=== PATIENT | male | born 1960 | race Caucasian/White ===

== ENCOUNTER 2023-07-10 12:34 | Inpatient (IN) | payer MEDICAID, SELFPAY ==
[2023-07-10] VITALS (16 sets, daily range): BP systolic 140–170; BP diastolic 87–117; PULSE 88–118; RESP 16–32; TEMP 36.8–37.2; O2SAT 95–99; BMI 23.3; BMI 24.1
--- NOTE | 2023-07-10 14:41 | ED_ITS ---
HPI - General Adult General Date Seen: 07/10/23 Chief complaint: Alcohol/Intoxication Stated complaint: ETOH, potential diabetic comlications Time Seen by Provider: 07/10/23 14:35 History of Present Illness HPI narrative: 69-year-old male who is presenting to the ER today with his brother with concern for alcohol related problems. He is apparently a alcoholic. Reported that he had been drinking about a bottle of wine every day prior to that. He got a DUI about 2 weeks ago and blood alcohol level was 0.315, per the patient. quit drinking about 2 weeks ago. Since then he has been having at anorexia, feeling very dizzy. He has diabetes and takes metformin. Patient says that he used to drink alcohol every day. He says that he drinks mostly ?wine?. But then also endorses sometimes he drinks other things mixed with. His brother, chris, indicates that he used to drink a full bottle of hard liquor every day. His brother endorses that he had to be admitted for 5 days for severe alcohol withdrawal in the ICU at [facility] a couple of years ago. The patient's family are trying to get a alcohol treatment program going for him, but the patient has been resistant. The patient was pulled over and had a driving under the influence take it a c ouple weeks ago. He is no longer supposed to drive. Apparently his alcohol was 0.315 or 0.375 on the night he was pulled over. Patient says he has not had anything to drink for 2 weeks. His brother thinks he may be lying about that. His brother found an empty case of wine in the trunk of the patient's car. For his part, the patient adamantly denies drinking. He also seems a little bit duplicitous about his drinking and often deflects questions. He also has history of diabetes. He is supposed to be be on metformin. It is unclear if he has been taking it. When asked him how his blood sugar has been running lately, he initially says that it is running ?pretty good. ?. His brother then adds that he told his family earlier that he had not been checking his blood sugar lately. He has a history of anxiety and/or depression. He is to be on meds, possibly something that started with ?an L? and possibly Zoloft. It sounds like he is not taking those for many months or possibly a couple of years. He has been having trouble with sleeping lately and waking up with insomnia and or nocturia. He also has a lot of phlegm and a chronic cough ongoing for a few months. He says he is not having any fever, shortness of breath, chest pain. No sore throat.. Related Data Home Medications Medication Instructions Recorded Confirmed bp med 07/10/23 metformin 07/10/23 Allergies Allergy/AdvReac Type Severity Reaction Status Date / Time Penicillins Allergy Unknown Verified 07/10/23 13:06 [facility] Social History Smoking Status: Never smoker Do you use any of these nicotine containing products: None Second hand tobacco smoke exposure: No How often do you have a drink containing alcohol: 4 or more times a week How often do you have six or more drinks on one occasion: Daily or almost daily AUDIT-C Alcohol total score: 8 Non-prescribed substance use: denies use service: No Exam Narrative: Exam Narrative: Constitutional: Appears well-developed and well-nourished. Alert. At times he is very polite and at times he is very defiant. He starts to argue with his brother and tries to kick his brother out of the room. He is tachycardic, tremulous.. HENT: Head: Atraumatic. Nose: Nose normal. Mouth/Throat: Oral mucosa is clear but dry, not desiccated or cracked no trismus. Pharynx normal Eyes: Conjunctivae normal. EOM normal. Pupils equal, round, and reactive to light. No scleral icterus. Neck: Normal range of motion. Neck supple. No tracheal deviation present. Cardiovascular: Tachycardic, regular rhythm. No gallop. No friction rub. No murmur heard. Symmetric radial artery pulses Pulmonary/Chest: Endorses that he has a lot of drainage of phlegm, but is not coughing. Oxygen 100% on room air. Effort normal. No stridor. No respiratory distress. No wheezes. No rales. No rhonchi . No tenderness. Abdominal: Soft. Bowel sounds normal. No distension. No mass. No tenderness. No rebound. No guarding. Musculoskeletal: RUE: Normal range of motion. No tenderness. No deformity LUE: Normal range of motion. No tenderness. No deformity RLE: Normal range of motion. No edema. No tenderness. No deformity LLE: Normal range of motion. No edema. No tenderness. No deformity Neurological: Alert and oriented to person, place, and day of the week, but not day of the month.. Normal strength. CN II-VII intact. No sensory deficit. GCS eye subscore is 4. GCS verbal subscore is 5. GCS motor subscore is 6. Normal coordination resting tremor. Skin: Skin is warm and dry. No rash noted. No pallor. Normal capillary refill. Psychiatric: Somewhat limited. He is very guarded and off and to flex direct questions. He says he has not had any alcohol to drink in the past 14 days ever since he got his DUI. His brother is concerned that he probably has been drinking in secret. Family is also worried that he has not been eating much. He says he drinks plenty of water. He also endorses insomnia. Family wants him to get into alcohol treatment but he is resistant and does not want treatment. Const: Vital Signs, click to edit/add: Vital Signs - 24 hr 07/10/23 12:56 Temperature 98.3 F Pulse Rate [Pulse Oximeter] 118 H Respiratory Rate 20 Blood Pressure [Ri ght Upper Arm] 162/89 H Pulse Oximetry 98 Oxygen Delivery Me thod Room Air Course Course ED Course: Recheck-sitting up in his chair, more conversant just coming back from x-ray. Reevaluation(s) Reevaluation #1: Recheck-patient's brother and mother now his bedside. He is still defiant and does not want alcohol treatment. They are trying to reason with him. Was tachycardic but heart rate down to 105 at and is continually can completion of his 2 L. Has received two 1 mg doses of Ativan. Heart rate came up from about 105-115 during my conversation with the patient and his family. He agrees to stay in the hospital for treatment. Will order phenobarbital for ongoing withdrawal symptoms. Reevaluation #2: Discussed with hospitalist, Dr. Mckeon Vital Signs Vital signs: Initial Vital Signs Temperature 98.3 F 07/10/23 12:56 Temperature Source Temporal Artery Scan 07/10/23 12:56 Pulse Rate 118 H 07/10/23 12:56 Respiratory Rate 20 07/10/23 12:56 Blood Pressure 162/89 H 07/10/23 12:56 Blood Pressure Mean 113 H 07/10/23 12:56 Blood Pressure Position Sitting 07/10/23 12:56 Pulse Oximetry 98 07/10/23 12:56 Oxygen Delivery Method Room Air 07/10/23 12:56 Vital Signs Temperature 98.3 F 07/10/23 12:56 Pulse Rate 118 H 07/10/23 12:56 Respiratory Rate 20 07/10/23 12:56 Blood Pressure 162/89 H 07/10/23 12:56 Pulse Oximetry 98 07/10/23 12:56 Oxygen Delivery Method Room Air 07/10/23 12:56 Temperature 98.3 F 07/10/23 12:56 Pulse Rate 118 H 07/10/23 12:56 Respiratory Rate 20 07/10/23 12:56 Blood Pressure 162/89 H 07/10/23 12:56 Pulse Oximetry 98 07/10/23 12:56 Oxygen Delivery Method Room Air 07/10/23 12:56 Medications Administered Medications: Generic Name Dose Route Start Last Admin Trade Name Freq PRN Reason Stop Dose Admin Sodium Chloride 1,000 mls @ 1,000 mls/hr 07/10/23 17:45 07/10/23 17:47 0.9 % Sodium Chloride 1000 Ml IV 07/10/23 18:44 1,000 mls/hr .Q1H BLANCA Administration Lorazepam 1 mg 07/10/23 16:06 07/10/23 17:46 Lorazepam 2 Mg/Ml Inj IVP 1 mg Q1H PRN Administration Discontinued Medications Generic Name Dose Route Start Last Admin Trade Name Freq PRN Reason Stop Dose Admin Folic Acid 1 mg 07/10/23 17:30 07/10/23 17:46 Folic Acid 1 Mg Tablet PO 07/10/23 17:31 1 mg ONCE ONE Administration Sodium Chloride 1,000 mls @ 1,000 mls/hr 07/10/23 14:45 07/10/23 16:27 0.9 % Sodium Chloride 1000 Ml IV 07/10/23 15:44 Infused .Q1H BLANCA Infusion Thiamine HCl 100 mg 07/10/23 17:13 07/10/23 17:46 Thiamine 100 Mg Tablet PO 07/10/23 17:14 100 mg ONCE ONE Administration Medical Decision Making MDM Narrative Medical decision making narrative: 63-year-old gentleman with a complex presentation to the ER. 1. Alcohol abuse. Patient does have her history of alcoholism and alcohol abuse. It sounds like he was for certain drinking very heavily up until about 2 weeks ago. The patient says he has not had any alcohol in the past 14 days, however his family contradicts that and they are pretty sure he has been drinking up until Monday night, 2 days ago. He was not tremulous yesterday but today he is definitely tremulous and showing signs of withdrawal. Family know that he has been through withdrawal multiple times in the past and has had seizures and required ICU admission before. Received thiamine and folate here in the ER. He is a very difficult historian. It is unclear if he may have warning he has encephalopathy and is confabulating verses just simply lying to cover up his ongoing drinking. Alcohol level is undetectable this time. He is tachycardic, tremulous, hyperthermic. He is not displaying signs of hallucinations or disorientation. Clinically consistent with alcohol withdrawal. Treated with IV benzodiazepines. LFTs are mildly abnormal with a bilirubin of 2.6, AST 287, ALT 100. This could be a pattern related to alcoholic hepatitis. Fortunately lipase is normal. He is playing signs of alcohol withdrawal including tremulousness, tachycardia, mild agitation. Sensorium normal. Initially treated with IV benzos. Also IV phenobarbital headache here in the ER. Will be admitted to the ICU for monitoring. 2. Patient endorses a lot of phlegm and a chronic cough. denies chest pain or shortness of breath. Chest x-ray is negative for any focal infiltrate, by my read. Unfortunately there is a is unexpected out ridge of Radiology. There is no Radiology over-read for any of our imaging today. Formal radiology results may come back tomorrow. 3. Kidney function is normal. Sodium mildly low at 134 but potassium normal. Creatinine normal. 4. Troponin is abnormal at 0.05. 2 hour delta troponin is unchanged at 0.05. EKG without ischemia. Patient denies any chest pain QTC is normal in the patient's EKG. Suspect likely related to sinus tachycardia from alcohol withdrawal and band ischemia. No evidence for ACS. Lab Data Labs: Lab Results 07/10/23 07/10/23 07/10/23 Range/Units 15:23 17:37 17:40 WBC 5.35 (4.50-11.00) K/uL RBC 3.32 L (4.30-5.90) m/uL Hgb 11.7 L (13.5-17.5) gm/dL Hct 34.2 L (37.0-53.0) % MCV 103 H (80-100) fL MCH 35 H (26-34) pg MCHC 34 (32-36) gm/dL RDW Coeff of Justin 13.8 (11.5-15.5) % Plt Count 163 (140-440) K/uL Neut % (Auto) 65.2 (42.0-72.0) % Lymph % (Auto) 24.3 (20-44) % [place] % (Auto) 9.5 (0.0-11.0) % Eos % (Auto) 0.2 (0.0-7.0) % Baso % (Auto) 0.6 (0.0-3.0) % Neut # (Auto) 3.49 (1.7-7.0) K/uL Lymph # (Auto) 1.30 (0.90-2.90) K/uL [place] # (Auto) 0.50 (0.00-0.90) K/UL Eos # (Auto) 0.01 (0.00-0.50) K/uL Baso # (Auto) 0.03 (0.00-0.30) K/uL Abs Immat Gran (auto) 0.01 (0.00-0.30) K/uL Imm/Tot Granulo (auto) 0.2 % Sodium 134 L (135-149) mmol/L Potassium 4.2 (3.6-5.1) mmol/L Chloride 98 (96-114) mmol/L Carbon Dioxide 21 (20-32) mmol/L Anion Gap 15 (7-15) mEq/L BUN 9 (7-30) mg/dL Creatinine 0.8 (0.5-1.5) mg/dL Estimated Creat Clear 77.57 Estimated GFR 101 ml/min Glucose 129 H (60-115) mg/dL Calcium 9.7 (8.4-10.6) mg/dL Total Bilirubin 2.6 H (0.1-1.5) mg/dL AST 287 H (12-35) U/L ALT 100 H (4-50) U/L Alkaline Phosphatase 131 (40-150) U/L Troponin I 0.05 H 0.05 H (0.01-0.04) ng/mL Total Protein 8.7 H (6.0-8.3) g/dL Albumin 5.1 H (3.3-5.0) g/dL Lipase < 10 L (23-300) U/L Ethyl Alcohol < 0.01 L (0.01-0.03) % SARS-CoV-2 (PCR) Negative SARS-CoV-2 (Negative) Influenza Type A (PCR) Negative PCR FLU A (Negative) Influenza Type B (PCR) Negative PCR FLU B (Negative) RSV (PCR) Negative PCR RSV (Negative) ECG Data Attestation: I personally reviewed and interpreted this ECG as follows: Interpretation: Sinus tachycardia. Rate 116. UT 208. First degree AV block. QRS axis normal axis. No pathologic Q-waves. ST segment/T wave: No ST segment elevation or depression. QTc: 428 Discharge Plan Discharge Clinical Impression: Alcohol abuse, Abnormal LFTs, Alcohol withdrawal Patient Disposition: Admitted As Inpatient
[2023-07-10] MEDS: 0.9 % SODIUM CHLORIDE 1000 ml 1,000 ML IV ×2 (15:35→17:47)
--- NOTE | 2023-07-10 15:37 | PC.NURSE ---
Pt comes into ED accompanied by his brother. Pt states he has had nasal drainage and cough for the last 2-3 months. denies fever or chills. Brother states he brought pt in because he is concerned about his alcohol consumption. Pt has history of being in multiple inpatient treatment facilities for alcoholism including [facility], [facility] and out of state care in [place]. Pt. denies any alcohol consumption for two weeks. Brother states he found alcohol bottles in basement of pt's house and in trunk of pt's vehicle. Pt is currently living in the basement of his mother's house as it was a condition of his recent DUI with blood ETOH approx. 0.4. Pt. states he is unable to leave and has not left the house to obtain alcohol since he has been on house arrest for the last two weeks. Pt has tremors, heart rate 120s, BP hypertensive, short term memory difficulty, pt does admit to history of seizures and pancreatitis. 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
[2023-07-10] MEDS: LORazepam 2 MG/ML inj 1 MG IVP ×4 (16:21→21:18)
[2023-07-10 16:22] LABS: Basophils Absolute Auto 0.03 K/uL (0.00-0.30); Basophils Percent Auto 0.6 % (0.0-3.0); Eosinophils Absolute Auto 0.01 K/uL (0.00-0.50); Eosinophils Percent Auto 0.2 % (0.0-7.0); Hematocrit 34.2 % (37.0-53.0); Hemoglobin* 11.7 gm/dL (13.5-17.5); Immature Granulocytes Abs Auto 0.01 K/uL (0.00-0.30); Immature Granulocytes Pct Auto 0.2 %; Lymphocytes Percent Auto 24.3 % (20-44); Mean Corpuscular HGB Conc 34 gm/dL (32-36); Mean Corpuscular Hemoglobin 35 pg (26-34); Mean Corpuscular Volume 103 fL (80-100); Monocytes Percent Auto 9.5 % (0.0-11.0); Neutrophils Absolute Auto 3.49 K/uL (1.7-7.0); Neutrophils Percent Auto 65.2 % (42.0-72.0); Platelet Count* 163 K/uL (140-440); RDW Coefficient of Variation % 13.8 % (11.5-15.5); Red Blood Count 3.32 m/uL (4.30-5.90); White Blood Count* 5.35 K/uL (4.50-11.00)
[2023-07-10 16:27] LABS: Chloride* 98 mmol/L (96-114); Slide Review Reflex No
[2023-07-10 16:28] LABS: Sodium* 134 mmol/L (135-149)
[2023-07-10 16:42] LABS: Troponin I* 0.05 ng/mL (0.01-0.04)
[2023-07-10 17:05] LABS: Albumin* 5.1 g/dL (3.3-5.0)
[2023-07-10 17:08] LABS: Anion Gap 15 mEq/L (7-15); Aspartate Amino Transferase* 287 U/L (12-35); Bilirubin Total* 2.6 mg/dL (0.1-1.5); Blood Urea Nitrogen* 9 mg/dL (7-30); Carbon Dioxide* 21 mmol/L (20-32); Creatinine* 0.8 mg/dL (0.5-1.5); Est. Creatinine Clearance* 77.57; Estimated Glomerular Filt Rate 101 ml/min; Total Protein* 8.7 g/dL (6.0-8.3)
[2023-07-10 17:09] LABS: Alanine Aminotransferase* 100 U/L (4-50); Alkaline Phosphatase* 131 U/L (40-150); Calcium* 9.7 mg/dL (8.4-10.6); Glucose* 129 mg/dL (60-115)
[2023-07-10 17:12] LABS: Ethanol* < 0.01 % (0.01-0.03); Lipase* < 10 U/L (23-300); Potassium* 4.2 mmol/L (3.6-5.1)
--- NOTE | 2023-07-10 17:34 | XR_ITS ---
INDICATION: COUGH. TECHNIQUE: TWO VIEWS CHEST. COMPARISON: NONE. FINDINGS: THERE IS NO DENSE INFILTRATE. NO PULMONARY EDEMA OR PLEURAL EFFUSION. NO FRACTURE. CARDIAC SILHOUETTE IS UNREMARKABLE WITH THE EXCEPTION OF MILD VASCULAR TORTUOSITY. ARTIFACT OVERLIES THE RIGHT UPPER HEMITHORAX. IMPRESSION: NO ACUTE FINDINGS.
[2023-07-10] MEDS: THIAMINE 100 MG TABLET PO (17:46)
[2023-07-10] MEDS: FOLIC ACID 1 MG TABLET PO (17:46)
--- NOTE | 2023-07-10 17:54 | ED.NURSE ---
Redrawn the trop and sent to lab. given another 1 mg ivp ativan. mother is present and placed another liter of fluids 0.9% normal saline infusing for hr 114. patient is tremors, very talkative, shaky, unsteady balance.
[2023-07-10 18:08] LABS: Troponin I* 0.05 ng/mL (0.01-0.04)
[2023-07-10 18:32] LABS: PCR FLU A Negative PCR FLU A (Negative); PCR FLU B Negative PCR FLU B (Negative); PCR RSV Negative PCR RSV (Negative); SARS PCR* Negative SARS-CoV-2 (Negative)
[2023-07-10] MEDS: PHENobarbitaL 260 MG in 0.9 % SODIUM CHLORIDE 100 ml 100 ML 208 MG IVPB (19:17)
--- NOTE | 2023-07-10 19:55 | PM.IMHP1 ---
Hospitalist- H&P: HPI History of Present Illness Date Seen: 07/10/23 Chief complaint: ETOH, potential diabetic complications Narrative: Woodrow Holder is a 63 year old male who presented to the ED today at the behest of his brother for anorexia and feeling off balance. Patient has a long history of alcohol abuse, recently arrested for DUI and currently on house arrest. History of hospitalization for withdrawal with + seizure. He states no alcohol use for the past 2 weeks; however, family is unsure if this is true, as they did find empty bottles of wine in his car trunk. ER Course and findings: - negative ETOH - elevated LFTs, macrocytic anemia, mild hyponatremia - troponin elevated at 0.05, sinus tachycardia on EKG Upon arrival to the floor, patient notes that he feels shaky, also ready to have supper. No pain concerns. No chest pain or breathing concerns. Histories updated below, PCP is Preethi darden. Patient has not been seen in clinic since December 2022, not currently taking any medications regularly. Review of Systems Narrative: - denies chest pain or dyspnea - denies headache or syncope - no abdominal pain - notes persistent brain fog post COVID infection [facility] Medical History (Updated 07/10/23 @ 20:54 by Yue Mckeon MD) Depression ?F32.A - Depression, unspecified (ICD-10) Diabetes type 2, controlled ?E11.9 - Type 2 diabetes mellitus without complications (ICD-10) Surgical History (Updated 07/10/23 @ 19:58 by Yue Mckeon MD) Hx of nasal septoplasty ?Z98.890 - Other specified postprocedural states (ICD-10) S/P ACL repair ?Z98.890 - Other specified postprocedural states (ICD-10) H/O hernia repair ?Z98.890 - Other specified postprocedural states (ICD-10) ?Z87.19 - Personal history of other diseases of the digestive system (ICD-10) H/O stapedectomy ?Z90.09 - Acquired absence of other part of head and neck (ICD-10) Social History (Updated 07/10/23 @ 20:28 by Yue Mckeon MD) Narrative: Currently living with mother in [place]. Brother Des MICHAEL in [place], [place]) would be medical decision maker if needed. History of alcohol abuse. Requests Full Code status. What is your current living situation?: I presently have a place to live Problems where you live: no known problems Problems where you live details: NA In the past 12 months, utilities in danger of being shut off: no In past 12 months, lack of transportation kept you from medical appts, meetings, work, or getting things needed for daily living: no In the past 12 mos, have been you worried that your food would run out before you had money to buy more?: never true In the past 12 mos, the food you bought just didn't last and you didn't have money to buy more?: never true Highest level of school completed/degree received: Bachelor's degree Smoking Status: Never smoker Do you use any of these nicotine containing products: None Second hand tobacco smoke exposure: No How often do you have a drink containing alcohol: 4 or more times a week Alcohol type: beer, wine and hard liquor How many standard drinks containing alcohol do you have on a typical day: 7 to 9 How often do you have six or more drinks on one occasion: Daily or almost daily AUDIT-C Alcohol total score: 11 Non-prescribed substance use: denies use Caffeine: No How often does anyone, including family, friends and others, physically hurt you: never How often does anyone, including family, friends and others, insult or talk down to you: never How often does anyone, including family, friends and others, threaten you with harm: never How often does anyone, including family, friends and others, scream or curse at you: never service: No Meds Home Medications and Allergies Home Medications Medication Instructions Recorded Confirmed Type bp med 07/10/23 History metformin 07/10/23 History Allergies Allergy/AdvReac Type Severity Reaction Status Date / Time Penicillins Allergy Unknown Verified 07/10/23 13:06 Exam Narrative: Exam Narrative: GEN: Awake, moderate confusion regarding chain of events that led to ER visit HEENT: EOMIs bilaterally, no scleral icterus CV: Sinus tachycardia, mid systolic murmur heard best at left lower sternal border R: LCTA bilaterally without concerning wheezing, air movement adequate Ab: Protuberant, mild fluid wave, + hepatomegaly Ext: wwp, no concerning edema Skin: Pinpoint, flat erythematous rash on left upper chest and right lower abdomen; no caput medusa Neuro: Fine tremor of bilateral upper extremities, gait is unsteady Psych: Intermittent pressured speech alternating with periods of slow responses Const: Vital Signs, click to edit/add: Vital Signs - 24 hr 07/10/23 12:56 07/10/23 17:00 07/10/23 17:30 Temperature 98.3 F Pulse Rate [Pulse Oximeter] 118 H 100 116 H Respiratory Rate 20 16 32 H Blood Pressure [Ri ght Upper Arm] 162/89 H 162/95 H 147/117 H Pulse Oximetry 98 96 96 Oxygen Delivery Me thod Room Air Room Air Room Air 07/10/23 17:45 07/10/23 18:00 07/10/23 18:30 Temperature Pulse Rate [Pulse Oximeter] 116 H 115 H 118 H Respiratory Rate 21 19 20 Blood Pressure [Ri ght Upper Arm] 160/93 H 141/102 H 170/103 H Pulse Oximetry 95 95 99 Oxygen Delivery Me thod Room Air Room Air Room Air Hospitalist - H&P: Result Labs Labs: Short CBC 07/10/23 Range/Units 15:23 WBC 5.35 (4.50-11.00) K/uL Hgb 11.7 L (13.5-17.5) gm/dL Hct 34.2 L (37.0-53.0) % Plt Count 163 (140-440) K/uL BMP 07/10/23 15:23 Sodium 134 L Potassium 4.2 Chloride 98 Carbon Dioxide 21 BUN 9 Creatinine 0.8 Glucose 129 H Calcium 9.7 Cardiac Enzymes 07/10/23 07/10/23 Range/Units 15:23 17:37 Troponin I 0.05 H 0.05 H (0.01-0.04) ng/mL Liver Function 07/10/23 Range/Units 15:23 Total Bilirubin 2.6 H (0.1-1.5) mg/dL AST 287 H (12-35) U/L ALT 100 H (4-50) U/L Alkaline Phosphatase 131 (40-150) U/L Albumin 5.1 H (3.3-5.0) g/dL Assessment and Plan Assessment and plan (1) Alcohol withdrawal: Problem comment: - symptoms noted on ED arrival 07/10, last ETOH unclear - history of withdrawal seizures - Phenobarbital, Gabapentin, prn Ativan per CIWA protocol Status: Acute (2) Alcohol abuse: Problem comment: - sequela: macrocytic anemia, hyponatremia, elevated LFTs, neuropathy Status: Acute (3) Elevated troponin: Problem comment: - likely 2/2 demand ischemia from tachycardia, also high risk for ETOH cardiomyopathy - repeat am troponin, TTE ordered Status: Acute (4) Diabetes type 2, controlled: Problem comment: - previously insulin dependent, last A1C 5.9 01/18 - accuchecks with SSI if eating during stay Status: Acute Plan - per above - follow LFTs, add INR - SCDs and PPI for ppx - SW, PT, OT consults placed - patient requested that I not call or update any family members regarding his admission
[2023-07-10] MEDS: 0.9 % SODIUM CHLORIDE 1000 ml 1,000 ML 125 ML IV (21:07)
[2023-07-10] MEDS: GABAPENTIN 300 MG CAPSULE PO (21:19)
[2023-07-10] MEDS: SODIUM CHLORIDE 0.9 % (FLUSH) 10 ML SYRINGE 5 ML IVF (21:19)
--- NOTE | 2023-07-10 21:35 | PC.NURSE ---
Pt is very Confused. Keeps trying to get out of bed to leave to go buy food. Thinks he is at home. Following RN out of room.
--- NOTE | 2023-07-10 21:38 | PC.NURSE ---
BG was [address] notified no action taken. Dr recommnded Not awakening pt once asleep. Frequent VS and IO not necessary.
[2023-07-10] MEDS: THIAMINE 250 MG in 0.9 % SODIUM CHLORIDE 100 ml 100 ML 102.5 MG IVPB (23:50)
[2023-07-11] VITALS (16 sets, daily range): BP systolic 117–146; BP diastolic 68–94; PULSE 73–96; RESP 16; TEMP 36.8–37.7; O2SAT 96–99
--- NOTE | 2023-07-11 02:37 | PC.NURSE ---
Pt CIWA @ 0230 was much improved At 1. Slight tremors visible with arms extended. Pt oriented to place time and date at this time. Much less anxious and agitated when awake.
[2023-07-11] MEDS: 0.9 % SODIUM CHLORIDE 1000 ml 1,000 ML 125 ML IV ×3 (04:43→23:40)
--- NOTE | 2023-07-11 05:06 | PC.NURSE ---
Pt awoke Prior to 0500 this am. He is alert and oriented to person, place, and situation. A1 with walker to BR. CIWA Score 1, Slight Tremors felt/observed. Note: Tremors improved overnight. VS unremarkable. Pt no longer Tachy. Pt showing less anxiousness and not as spontaneous getting out of bed. Pleasant and cooperative this am.
[2023-07-11] MEDS: GABAPENTIN 300 MG CAPSULE PO ×3 (05:34→21:54)
[2023-07-11] MEDS: OMEPRAZOLE 20 MG CAPSULE DR 40 MG PO (06:42)
[2023-07-11 07:01] LABS: Basophils Percent Auto 0.5 % (0.0-3.0); Eosinophils Percent Auto 2.1 % (0.0-7.0); Hematocrit 26.9 % (37.0-53.0); Hemoglobin* 9.3 gm/dL (13.5-17.5); Immature Granulocytes Pct Auto 0.3 %; Lymphocytes Percent Auto 43.3 % (20-44); Mean Corpuscular HGB Conc 35 gm/dL (32-36); Mean Corpuscular Hemoglobin 36 pg (26-34); Mean Corpuscular Volume 103 fL (80-100); Monocytes Percent Auto 8.7 % (0.0-11.0); Neutrophils Percent Auto 45.1 % (42.0-72.0); Platelet Count* 91 K/uL (140-440); RDW Coefficient of Variation % 13.1 % (11.5-15.5); Red Blood Count 2.61 m/uL (4.30-5.90); White Blood Count* 3.79 K/uL (4.50-11.00)
[2023-07-11 07:07] LABS: Slide Review Reflex No
[2023-07-11 07:15] LABS: Chloride* 106 mmol/L (96-114)
[2023-07-11 07:16] LABS: Albumin* 3.5 g/dL (3.3-5.0); Potassium* 3.5 mmol/L (3.6-5.1); Sodium* 135 mmol/L (135-149)
[2023-07-11 07:17] LABS: INR 1.32 (0.91-1.10); Prothrombin Time 17.3 Seconds
[2023-07-11 07:18] LABS: Creatinine* 0.8 mg/dL (0.5-1.5); Est. Creatinine Clearance* 77.57; Estimated Glomerular Filt Rate 101 ml/min
[2023-07-11 07:19] LABS: Alanine Aminotransferase* 70 U/L (4-50); Alkaline Phosphatase* 97 U/L (40-150); Anion Gap 7 mEq/L (7-15); Aspartate Amino Transferase* 135 U/L (12-35); Blood Urea Nitrogen* 10 mg/dL (7-30); Calcium* 8.1 mg/dL (8.4-10.6); Carbon Dioxide* 22 mmol/L (20-32); Gamma Glutamyl Transpeptidase* 507 U/L (8-55); Glucose* 120 mg/dL (60-115); Total Protein* 6.4 g/dL (6.0-8.3)
[2023-07-11 07:29] LABS: Troponin I* 0.03 ng/mL (0.01-0.04)
[2023-07-11] MEDS: SODIUM CHLORIDE 0.9 % (FLUSH) 10 ML SYRINGE 5 ML IVF (08:05)
[2023-07-11] MEDS: FOLIC ACID 1 MG TABLET PO (08:05)
[2023-07-11] MEDS: lisinopriL 10 MG TABLET PO (08:06)
[2023-07-11 08:57] LABS: Hemoglobin A1C* 5.9 % (0-5.6)
[2023-07-11] MEDS: THIAMINE 250 MG in 0.9 % SODIUM CHLORIDE 100 ml 100 ML 200 MG IVPB (09:14)
[2023-07-11] MEDS: INSULIN ASPART 100 UNIT/ML SUBCUT ×2 (11:21→20:26)
--- NOTE | 2023-07-11 11:55 | PM.IMPN1 ---
Progress Note: A&P Assessment and plan (1) Alcohol withdrawal: Problem details: Patient reports a long history of heavy alcohol use and multiple stays with chemical dependency rehabilitation. He reports that he has not had any alcohol in more than 2 weeks, but this seems unlikely based on his presentation. Was initially treated with phenobarbital and ativan - symptoms noted on ED arrival 07/10, last ETOH unclear - history of withdrawal seizures - Continue Ativan per [facility] protocol Status: Acute (2) Elevated troponin: Problem details: Likely 2/2 demand ischemia from tachycardia, also high risk for ETOH cardiomyopathy. Repeat troponin is now normal. - TTE ordered and pending Status: Acute (3) Diabetes type 2, controlled: Problem details: - previously insulin dependent, last A1C 5.9 01/18 - accuchecks with SSI Status: Acute (4) Alcohol abuse: Problem details: - sequela: macrocytic anemia, hyponatremia, elevated LFTs, neuropathy Status: Acute Subjective Date Seen: 07/11/23 Interval history: Patient is seen and examined. He is feeling better today, feels like his tremors are improved. He is quite tangential in our discussion and minimizes his concern for EtOH effects. He reports that he has been through chemical dependency programs several times and is not interested in any further treatment. He may get involved with AA as that has helped him in the past. He thinks he was admitted due to being dehydrated. I explained that he very likely was dehydrated, but also has evidence for alcoholic hepatitis and withdrawal. EXAM: General- no distress, appears older than stated age HEENT- NCAT, MMM Resp- Breathing is comfortable and unlabored CV- RRR, no m/g/r Neuro- mild resting tremor, no lateralizing deficits Skin- warm and dry Exam Const: Vital Signs, click to edit/add: Vital Signs - 24 hr 07/10/23 12:56 07/10/23 17:00 07/10/23 17:30 Temperature 98.3 F Pulse Rate Pulse Rate [Pulse Oximeter] 118 H 100 116 H Pulse Rate [Right Radial] Respiratory Rate 20 16 32 H Blood Pressure [Ri ght Arm] Blood Pressure [Ri ght Upper Arm] 162/89 H 162/95 H 147/117 H Pulse Oximetry 98 96 96 Oxygen Delivery Me thod Room Air Room Air Room Air 07/10/23 17:45 07/10/23 18:00 07/10/23 18:30 Temperature Pulse Rate Pulse Rate [Pulse Oximeter] 116 H 115 H 118 H Pulse Rate [Right Radial] Respiratory Rate 21 19 20 Blood Pressure [Ri ght Arm] Blood Pressure [Ri ght Upper Arm] 160/93 H 141/102 H 170/103 H Pulse Oximetry 95 95 99 Oxygen Delivery Me thod Room Air Room Air Room Air 07/10/23 20:18 07/10/23 20:21 07/10/23 20:22 Temperature 98.9 F 98.9 F 98.9 F Pulse Rate Pulse Rate [Pulse Oximeter] Pulse Rate [Right Radial] 105 H 105 H 105 H Respiratory Rate 18 18 18 Blood Pressure [Ri ght Arm] 153/87 H 153/87 H 153/87 H Blood Pressure [Ri ght Upper Arm] Pulse Oximetry 99 99 99 Oxygen Delivery Me thod Room Air Room Air Room Air 07/10/23 20:34 07/10/23 21:46 07/10/23 21:48 Temperature 98.6 F Pulse Rate 103 H Pulse Rate [Pulse Oximeter] Pulse Rate [Right Radial] Respiratory Rate 18 18 Blood Pressure [Ri ght Arm] 148/90 H Blood Pressure [Ri ght Upper Arm] Pulse Oximetry 99 99 Oxygen Delivery Me thod Room Air Room Air 07/10/23 22:06 07/10/23 22:30 07/10/23 22:36 Temperature 98.6 F 98.4 F Pulse Rate Pulse Rate [Pulse Oximeter] Pulse Rate [Right Radial] 103 H 88 103 H Respiratory Rate 18 16 18 Blood Pressure [Ri ght Arm] 148/90 H 140/90 H Blood Pressure [Ri ght Upper Arm] Pulse Oximetry 99 98 Oxygen Delivery Me thod Room Air Room Air 07/10/23 22:38 07/11/23 01:00 07/11/23 02:23 Temperature 98.4 F 98.4 F Pulse Rate Pulse Rate [Pulse Oximeter] Pulse Rate [Right Radial] 88 86 Respiratory Rate 16 16 Blood Pressure [Ri ght Arm] 140/90 H 141/81 H Blood Pressure [Ri ght Upper Arm] Pulse Oximetry 99 98 98 Oxygen Delivery Me thod Room Air Room Air Room Air 07/11/23 02:33 07/11/23 02:42 07/11/23 05:03 Temperature 98.4 F 98.4 F 99 F Pulse Rate Pulse Rate [Pulse Oximeter] Pulse Rate [Right Radial] 86 88 80 Respiratory Rate 16 16 16 Blood Pressure [Ri ght Arm] 141/81 H 141/81 H 131/89 Blood Pressure [Ri ght Upper Arm] Pulse Oximetry 98 98 99 Oxygen Delivery Wa thod Room Air Room Air Room Air 07/11/23 07:00 07/11/23 07:00 07/11/23 07:00 Temperature 98.8 F Pulse Rate 96 Pulse Rate [Pulse Oximeter] Pulse Rate [Right Radial] 73 Respiratory Rate 16 16 Blood Pressure [Ri ght Arm] 146/94 H Blood Pressure [Ri ght Upper Arm] Pulse Oximetry 98 98 Oxygen Delivery Wa thod Room Air Room Air 07/11/23 08:22 07/11/23 11:00 Temperature 98.8 F 99.8 F H Pulse Rate Pulse Rate [Pulse Oximeter] 86 Pulse Rate [Right Radial] 73 Respiratory Rate 16 16 Blood Pressure [Ri ght Arm] 146/94 H 124/75 Blood Pressure [Ri ght Upper Arm] Pulse Oximetry 98 98 Oxygen Delivery Wa thod Room Air Room Air Labs Labs: Laboratory Results - last 24 hr 07/10/23 07/10/23 07/10/23 15:23 17:37 17:40 WBC 5.35 RBC 3.32 L Hgb 11.7 L Hct 34.2 L MCV 103 H MCH 35 H MCHC 34 RDW Coeff of Justin 13.8 Plt Count 163 Neut % (Auto) 65.2 Lymph % (Auto) 24.3 Sunflower % (Auto) 9.5 Eos % (Auto) 0.2 Baso % (Auto) 0.6 Neut # (Auto) 3.49 Lymph # (Auto) 1.30 Sunflower # (Auto) 0.50 Eos # (Auto) 0.01 Baso # (Auto) 0.03 Abs Immat Gran (auto) 0.01 Imm/Tot Granulo (auto) 0.2 INR Sodium 134 L Potassium 4.2 Chloride 98 Carbon Dioxide 21 Anion Gap 15 BUN 9 Creatinine 0.8 Estimated Creat Clear 77.57 Estimated GFR 101 Glucose 129 H Hemoglobin A1c Calcium 9.7 Total Bilirubin 2.6 H GGT AST 287 H ALT 100 H Alkaline Phosphatase 131 Troponin I 0.05 H 0.05 H Total Protein 8.7 H Albumin 5.1 H Lipase < 10 L Ethyl Alcohol < 0.01 L SARS-CoV-2 (PCR) Negative SARS-CoV-2 Influenza Type A (PCR) Negative PCR FLU A Influenza Type B (PCR) Negative PCR FLU B RSV (PCR) Negative PCR RSV 07/11/23 06:35 WBC 3.79 L RBC 2.61 L Hgb 9.3 L Hct 26.9 L MCV 103 H MCH 36 H MCHC 35 RDW Coeff of Justin 13.1 Plt Count 91 L Neut % (Auto) 45.1 Lymph % (Auto) 43.3 Sunflower % (Auto) 8.7 Eos % (Auto) 2.1 Baso % (Auto) 0.5 Neut # (Auto) 1.70 Lymph # (Auto) 1.60 Sunflower # (Auto) 0.30 Eos # (Auto) 0.10 Baso # (Auto) 0.00 Abs Immat Gran (auto) 0.00 Imm/Tot Granulo (auto) 0.3 INR 1.32 H Sodium 135 Potassium 3.5 L Chloride 106 Carbon Dioxide 22 Anion Gap 7 BUN 10 Creatinine 0.8 Estimated Creat Clear 77.57 Estimated GFR 101 Glucose 120 H Hemoglobin A1c 5.9 H Calcium 8.1 L Total Bilirubin 2.0 H GGT 507 H AST 135 H ALT 70 H Alkaline Phosphatase 97 Troponin I 0.03 Total Protein 6.4 Albumin 3.5 Lipase Ethyl Alcohol SARS-CoV-2 (PCR) Influenza Type A (PCR) Influenza Type B (PCR) RSV (PCR)
[2023-07-11] MEDS: THIAMINE 250 MG in 0.9 % SODIUM CHLORIDE 100 ml 100 ML 102.5 MG IVPB ×2 (14:29→20:24)
--- NOTE | 2023-07-11 15:40 | PC.NURSE ---
VSS, RA. Denies pain. On tele- NSR. Last CIWA- 5. No ativan given. Forgetful. Talked about past drinking hx. Does not want to go to treatment, states he has done that before 3x and the only one he liked was [facility]. Stated that he stopped drinking for 3 years after going there. He mentioned reading a lot while he was there, and read a lot about depression. Pt is interested in starting Lexapro again, he has taken in the past. Does not have a primary care provider currently. Murmur- had echo today, results pending. Tolerating regular diet- ate 100% breakfast and lunch. 800 cc fluids in. Voided x2. Small/moderate, green/palencia stool x2. PIV in left arm w/ NS @ 125 cc/hr. Up with SBA, gait belt, & walker- unsteady gait, drifts to right. Will continue to monitor, follow POC, and keep pt and family updated. Preethi Muller RN
--- NOTE | 2023-07-11 19:50 | PC.NURSE ---
CIWAS= 5-6, no Ativan needed. Pt demonstrates a moderate tremor, denies pain, headache, or visual disturbances. Mild complaints of sound sensitivity. VS WNL and LS COA. Pt reports two large BM's, the second one being diarrhea and he had a small amount of incontinence attempting to get to the BR. Pt was able to clean himself up independently. Good appetite and denies and N/V. Tele= NSR.
[2023-07-12 04:01] VITALS: BP 132/87; PULSE 80; RESP 16; TEMP 36.9; O2SAT 96
[2023-07-12 04:02] VITALS: BP 132/87; PULSE 80; RESP 16; TEMP 36.9; O2SAT 96
[2023-07-12] MEDS: GABAPENTIN 300 MG CAPSULE PO (06:21)
[2023-07-12] MEDS: OMEPRAZOLE 20 MG CAPSULE DR 40 MG PO (06:22)
--- NOTE | 2023-07-12 06:31 | PC.NURSE ---
End of shift note [id number]: Pt noted to be alert & oriented to person, place and date though has been confused regarding correct day throughout the shift. Pt also believed he had been admitted to the hospital on 07/09/23 instead of 07/10/23. CIWAs of 6 noted throughout the shift. Pt has hx of seizures with precautions in place though has had no seizures noted or reported this shift. VSS and pt has been afebrile. Pt transfers/ambulates with SBA. He does take IV pole with him though is being observed as forgetting to use walker or call light when getting up. Pt states he does not use a walker at home though is noted to have some imbalance noted when standing. Pt educated to use call light when wanting to get up. Pt refused SCDs at HS. He is noted to have some intact blistering to left inner forearm near elbow. Photogrammetric Compilation Specialist placed dry gauze over this area to provide protection from IV tubing as IV currently in place to L AC. Pt remains on telemetry with NSR noted. Pt has been denying pain when asked throughout the shift. He remains continent of bladder using toilet.
[2023-07-12 07:21] VITALS: PULSE 82
[2023-07-12 07:30] VITALS: PULSE 103; RESP 18
[2023-07-12] MEDS: 0.9 % SODIUM CHLORIDE 1000 ml 1,000 ML 125 ML IV (07:31)
[2023-07-12 08:21] VITALS: BP 136/95; PULSE 103; RESP 18; TEMP 36.6; O2SAT 97
[2023-07-12 08:24] VITALS: BP 136/95; PULSE 103; RESP 18; TEMP 36.6; O2SAT 97
[2023-07-12] MEDS: lisinopriL 10 MG TABLET PO (09:01)
[2023-07-12] MEDS: FOLIC ACID 1 MG TABLET PO (09:01)
[2023-07-12] MEDS: THIAMINE 250 MG in 0.9 % SODIUM CHLORIDE 100 ml 100 ML 102.5 MG IVPB (09:03)
[2023-07-12 09:04] LABS: Albumin* 3.8 g/dL (3.3-5.0)
[2023-07-12 09:05] LABS: Chloride* 112 mmol/L (96-114); Potassium* 3.8 mmol/L (3.6-5.1); Sodium* 136 mmol/L (135-149)
[2023-07-12 09:07] LABS: Anion Gap 8 mEq/L (7-15); Aspartate Amino Transferase* 85 U/L (12-35); Bilirubin Total* 1.6 mg/dL (0.1-1.5); Carbon Dioxide* 16 mmol/L (20-32); Creatinine* 0.8 mg/dL (0.5-1.5); Est. Creatinine Clearance* 77.57; Estimated Glomerular Filt Rate 101 ml/min
[2023-07-12 09:08] LABS: Alanine Aminotransferase* 58 U/L (4-50); Alkaline Phosphatase* 95 U/L (40-150); Blood Urea Nitrogen* 8 mg/dL (7-30); Calcium* 8.2 mg/dL (8.4-10.6); Glucose* 169 mg/dL (60-115); Total Protein* 7.1 g/dL (6.0-8.3)
[2023-07-12 09:14] LABS: Basophils Absolute Auto 0.02 K/uL (0.00-0.30); Basophils Percent Auto 0.4 % (0.0-3.0); Eosinophils Percent Auto 2.1 % (0.0-7.0); Hematocrit 28.6 % (37.0-53.0); Hemoglobin* 9.6 gm/dL (13.5-17.5); Immature Granulocytes Abs Auto 0.02 K/uL (0.00-0.30); Immature Granulocytes Pct Auto 0.4 %; Lymphocytes Absolute Auto 1.67 K/uL (0.90-2.90); Lymphocytes Percent Auto 35.4 % (20-44); Mean Corpuscular HGB Conc 34 gm/dL (32-36); Mean Corpuscular Hemoglobin 36 pg (26-34); Mean Corpuscular Volume 106 fL (80-100); Monocytes Percent Auto 7.4 % (0.0-11.0); Neutrophils Absolute Auto 2.56 K/uL (1.7-7.0); Neutrophils Percent Auto 54.3 % (42.0-72.0); Platelet Count* 95 K/uL (140-440); White Blood Count* 4.72 K/uL (4.50-11.00)
[2023-07-12 09:19] LABS: Slide Review Reflex No
--- NOTE | 2023-07-12 10:43 | PC.SOCIAL ---
Discharge planning: wafer polishing worker met with pt and provided him with a resource list for Substance Abuse programs in [place] and the surrounding areas. wafer polishing worker also provided pt with a list of local A.A. Meetings at his request. Pt was thankful for the information and resources. Social work to follow-up as needed.
--- NOTE | 2023-07-12 10:59 | P.DS_ITS ---
DS: Providers Provider Date Seen: 07/12/23 Date of admission: 07/10/23 20:11 Primary care physician: Not a Local Provider Admitting Clinician: Yue Mckeon MD Consults: 07/10/23 14:36 Consult to [employer] Book Server [CONS] Urgent Comment: Reason for Consult:: Social Service Consult 07/10/23 20:11 Consult to Physical Therapy [CONS] Routine Comment: Reason(s) for PT Consult:: Evaluate and Treat Any Restrictions?:: No Restrictions 07/10/23 20:15 Consult to Occupational Therapy [CONS] Routine Comment: Reason(s) for OT Consult:: Evaluate and Treat Any Restrictions?:: No Restrictions Attending Physician on discharge: Stephanie Porter MD Date of Discharge: 07/12/23 DS: Diagnosis Discharge Diagnosis (1) Alcohol withdrawal: Status: Acute Problem details: Patient reports a long history of heavy alcohol use and multiple stays with chemical dependency rehabilitation. He reports that he has not had any alcohol in more than 2 weeks, but this seems unlikely based on his presentation. Was initially treated with phenobarbital and ativan. Withdrawal slowly improved and on the day of discharge, patient was felt to be stable for discharge. Strict sobriety was recommended. Patient was provided resources. (2) Elevated troponin: Status: Acute Problem details: Likely 2/2 demand ischemia from tachycardia, also high risk for ETOH cardiomyopathy. Repeat troponin is now normal. - TTE ordered and pending at the time of discharge, will need PCP to review (3) Diabetes type 2, controlled: Status: Acute Problem details: - previously insulin dependent, last A1C 5.9 01/18 - Resume metformin at discharge and follow up with PCP (4) Alcohol abuse: Status: Acute Problem details: - sequela: macrocytic anemia, hyponatremia, elevated LFTs, neuropathy (5) Alcoholic hepatitis: Status: Acute Problem details: LFTs were elevated on admission with mild impairment in synthetic function. Impr oving at the time of discharge. Abstinence from alcohol recommended. DS: Summary Hospital Course Hospital Course: Woodrow Holder is a 63 year old male who presented to the ED today at the behest of his brother for anorexia and feeling off balance. Patient has a long history of alcohol abuse, recently arrested for DUI and currently on house arrest. History of hospitalization for withdrawal with + seizure. He states no alcohol use for the past 2 weeks; however, family is unsure if this is true, as they did find empty bottles of wine in his car trunk. ER Course and findings: - negative ETOH - elevated LFTs, macrocytic anemia, mild hyponatremia - troponin elevated at 0.05, sinus tachycardia on EKG Patient was admitted to ICU for close monitoring and treatment of withdrawal with phenobarbital and ativan. He did well over 2 nights and withdrawal abated. He declined resources for inpatient treatment, but was agreeable to considering AA which he has found helpful in the past. Echo is still pending at time of discharge, recommend PCP to follow up. Status at Discharge Functional status at discharge: independent ambulation Time Spent with Patient Time attestation: Total time spent providing and/or coordinating discharge services: Time spent: Greater than 30 minutes Exam Const: Vital Signs, click to edit/add: Vital Signs - 24 hr 07/11/23 11:00 07/11/23 15:00 07/11/23 15:00 Temperature 99.8 F H 98.6 F Pulse Rate Pulse Rate [Pulse Oximeter] 86 91 Respiratory Rate 16 16 16 Blood Pressure [Ri ght Arm] 124/75 117/68 Pulse Oximetry 98 96 96 Oxygen Delivery Me thod Room Air Room Air Room Air 07/11/23 15:00 07/11/23 15:00 07/11/23 15:23 Temperature 98.6 F Pulse Rate 90 Pulse Rate [Pulse Oximeter] 91 91 Respiratory Rate 16 16 Blood Pressure [Ri ght Arm] 117/68 Pulse Oximetry 96 Oxygen Delivery Me thod Room Air 07/11/23 19:52 07/11/23 23:00 07/11/23 23:44 Temperature 98.3 F Pulse Rate Pulse Rate [Pulse Oximeter] 90 87 Respiratory Rate 16 16 16 Blood Pressure [Ri ght Arm] 118/75 Pulse Oximetry 97 99 Oxygen Delivery Me thod Room Air Room Air 07/11/23 23:45 07/11/23 23:46 07/11/23 23:55 Temperature 98.6 F 98.6 F Pulse Rate 78 Pulse Rate [Pulse Oximeter] 87 87 Respiratory Rate 16 16 Blood Pressure [Ri ght Arm] 122/80 122/80 Pulse Oximetry 99 99 Oxygen Delivery Me thod Room Air Room Air 07/12/23 04:01 07/12/23 04:02 07/12/23 07:21 Temperature 98.4 F 98.4 F Pulse Rate 82 Pulse Rate [Pulse Oximeter] 80 80 Respiratory Rate 16 16 Blood Pressure [Ri ght Arm] 132/87 132/87 Pulse Oximetry 96 96 Oxygen Delivery Me thod Room Air Room Air 07/12/23 07:30 07/12/23 08:21 07/12/23 08:24 Temperature 97.9 F Pulse Rate Pulse Rate [Pulse Oximeter] 103 H 103 H Respiratory Rate 18 18 18 Blood Pressure [Ri ght Arm] 136/95 H Pulse Oximetry 97 97 Oxygen Delivery Me thod Room Air Room Air 07/12/23 08:24 Temperature 97.9 F Pulse Rate Pulse Rate [Pulse Oximeter] 103 H Respiratory Rate 18 Blood Pressure [Ri ght Arm] 136/95 H Pulse Oximetry 97 Oxygen Delivery Me thod Room Air Documenting provider has reviewed patient's vital signs: yes Common normals: no apparent distress General appearance: cooperative and appears older than stated age HENMT: Common normals: normocephalic Head and scalp: normocephalic Teeth and gingiva: edentulous Resp: Common normals: normal respiratory effort and clear to auscultation bilaterally Auscultation: clear to auscultation bilaterally Cardio: Common normals: regular rhythm (mildly tachycardic), S1 normal heart sound and S2 normal heart sound Rhythm: regular rhythm (mildly tachycardic) Heart sounds: S1 normal, S2 normal and murmur Extremity: Common normals: normal to inspection Neuro: Common normals: moves all extremities and no focal motor deficits Skin: General skin exam: dry skin DS: Data Data Completed and Pending Labs on day of discharge: Labs from last 24 hours 07/12/23 07/12/23 09:07 08:41 WBC 4.72 RBC 2.70 L Hgb 9.6 L Hct 28.6 L MCV 106 H MCH 36 H MCHC 34 RDW Coeff of Justin 13.0 Plt Count 95 L Neut % (Auto) 54.3 Lymph % (Auto) 35.4 Owen % (Auto) 7.4 Eos % (Auto) 2.1 Baso % (Auto) 0.4 Neut # (Auto) 2.56 Lymph # (Auto) 1.67 Owen # (Auto) 0.30 Eos # (Auto) 0.10 Baso # (Auto) 0.02 Abs Immat Gran (auto) 0.02 Imm/Tot Granulo (auto) 0.4 Sodium 136 Potassium 3.8 Chloride 112 Carbon Dioxide 16 L Anion Gap 8 BUN 8 Creatinine 0.8 Estimated Creat Clear 77.57 Estimated GFR 101 Glucose 169 H Calcium 8.2 L Total Bilirubin 1.6 H AST 85 H ALT 58 H Alkaline Phosphatase 95 Total Protein 7.1 Albumin 3.8 Discharge Plan Discharge Disposition: Home, Self-Care Date of Admission: 07/10/23 20:11 Attending Provider on Discharge: Stephanie Porter Primary Care Provider: Provider,Not a Local Condition: Improved Anticipated Discharge Date/Time: 07/12/23 10:56 Discharge Medications: Continued amlodipine 5 mg tablet 5 mg PO DAILY losartan 100 mg tablet 100 mg PO DAILY gabapentin 300 mg capsule 300 - 600 mg PO BID@09,12 Rx Instructions: 300MG AM AND 600MG NOON Discharge Orders: Discharge Order (Routine); Ordered 07/12/23 Ordered By: Stephanie Porter Patient Education: Alcohol Withdrawal (DC) Activity Level: No Restrictions Discharge Diet: Diabetic Follow Up Appointments: Provider,Not a Local [Primary Care Provider] - Forms: [employer] Medical Info Instructions Discharge Comments: Follow up with PCP, Preethi Armenta PA-C with [facility] in 1 week
--- NOTE | 2023-07-12 12:47 | PC.NURSE ---
discharge. pt has been pleasant. he is alert x2. off on date. no pain/. CIWA 6, no Ativan needed. Pt demonstrates a moderate tremor, denies pain, headache, or visual disturbances. large BM per pt.he is eating, drinking and voiding. Tele= NSR. he has been up walking, IV is patent. went over discharge packet with pt. pt went over and signed personal belonging sheet. all meds x3 returned to pt. he got a w/c ride to front entrance with all belongings and paperwork
== END 2023-07-12 12:20 | disposition home or self-care (01) | DRG 897 ==
LOC: ED 19:11 → MEDSURG 19:35
PROVIDERS: Family Medicine; Admitting Provider Family Medicine; Emergency Provider Emergency Medicine; Visit Provider Family Medicine
DX: F10.239 Alcohol dependence with withdrawal, unspecified (principal); I24.89 Other forms of acute ischemic heart disease; E11.9 Type 2 diabetes mellitus without complications; F32.A Depression, unspecified; R00.0 Tachycardia, unspecified; R79.89 Other specified abnormal findings of blood chemistry; K70.10 Alcoholic hepatitis without ascites; Y90.0 Blood alcohol level of less than 20 mg/100 ml; R05.3 Chronic cough; D53.9 Nutritional anemia, unspecified; G62.1 Alcoholic polyneuropathy
CPT/HCPCS: 36415; 71046; 80053; 82077; 82962; 82977; 83036; 83690; 84484; 85025; 85610; 87631; 93005; 93306; 97116; 97161; 97165; 97535; 99285; G0378; A9270; J2060; J2560; J3411; J7030

== ENCOUNTER 2023-11-20 10:58 | Outpatient (CLI) | payer MEDICAID, SELFPAY | END 2023-11-20 10:59 | disposition home or self-care (01) | LOC: NFLDUCREF 11:01 | PROVIDERS: Visit Provider Nurse Practitioner Family | DX: R11.2 Nausea with vomiting, unspecified (principal) | CPT/HCPCS: 80053 ==

== ENCOUNTER 2024-02-07 11:47 | Inpatient (IN) | payer MEDICAID, SELFPAY ==
[2024-02-07] VITALS (13 sets, daily range): BP systolic 150–170; BP diastolic 79–96; PULSE 91–125; RESP 16–18; TEMP 37–37.2; O2SAT 98–100; BMI 20.5; BMI 21.9
[2024-02-07] MEDS: LORazepam 2 MG/ML inj IVP (12:25)
--- NOTE | 2024-02-07 12:27 | ED.GENADULT ---
HPI - General Adult General Time Seen by Provider: 12:28 Date Seen: 02/07/24 Chief complaint: Nausea/Vomiting Stated complaint: Weakness, nausea, vomiting Time Seen by Provider: 02/07/24 12:13 Source: patient, family and RN notes reviewed Mode of arrival: ambulatory Limitations: no limitations History of Present Illness HPI narrative: This 64-year-old male is accompanied by a 2 of his brothers with concern of alcohol withdrawal. Woodrow feels like he is having nausea and vomiting due to postnasal drainage from his sinuses. His brother's report that he is had alcohol withdrawal seizures before. They note he does not always have severe withdrawal but if he does go into withdrawal, can be severe. His last seizure was when he was hospitalized at [facility], maybe has been years. Woodrow endorses that he is been trying to cut back on alcohol but is still probably drinking a 5th of hard liquor daily. His last drink was last night. He has been having nausea vomiting, denies fevers, denies abdominal pain. His brother notes that he feels he has baseline cephalopathy from his alcohol use, does have Wernicke encephalopathy. Woodrow fell last night, hit the front of his head. He has no recollection. His brothers note that he did state that he was alcoholic twice earlier today, this is the 1st time he is ever admitted that he is alcoholic. They note that he is sleeping in his mom's basement, he has been staying with her. They feel that they need to remove him from that living arrangement, she cannot manage him. Related Data Home Medications ?Medication ?Instructions ?Recorded ?Confirmed losartan 100 mg tablet 100 mg PO DAILY 07/11/23 02/07/24 acetaminophen 325 mg tablet 650 mg PO Q4H PRN 02/07/24 02/07/24 amlodipine 5 mg tablet 5 mg PO DAILY 02/07/24 02/07/24 azelastine 137 mcg (0.1 %) nasal 1 spray intranasal BID 02/07/24 02/07/24 spray gabapentin 300 mg capsule 300 mg PO DAILY 02/07/24 02/07/24 gabapentin 300 mg capsule 600 mg PO HS 02/07/24 02/07/24 metformin 500 mg tablet,extended 500 mg PO BIDWM 02/07/24 02/07/24 release 24 hr omeprazole 40 mg capsule,delayed 40 mg PO DAILY 02/07/24 02/07/24 release pravastatin 10 mg tablet 10 mg PO HS 02/07/24 02/07/24 Allergies Allergy/AdvReac Type Severity Reaction Status Date / Time Penicillins Allergy Unknown Verified 11/20/23 10:32 Review of Systems Status of ROS: Reports: 6 or more systems reviewed and unremarkable except as noted in History and below [facility] Medical History (Updated 02/07/24 @ 19:27 by Jenni Raza MD) 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 ?K70.2 - Alcoholic fibrosis and sclerosis of liver (ICD-10) Noncompliance with medication regimen ?Z91.148 - Patient's other noncompliance with medication regimen for other reason (ICD-10) Medication noncompliance due to cognitive impairment ?R41.9 - Unspecified symptoms and signs involving cognitive functions and awareness (ICD-10) ?Z91.148 - Patient's other noncompliance with medication regimen for other reason (ICD-10) Malnutrition ?E46 - Unspecified protein-calorie malnutrition (ICD-10) Ascending aortic aneurysm ?I71.21 - Aneurysm of the ascending aorta, without rupture (ICD-10) History of pancreatitis ?Z87.19 - Personal history of other diseases of the digestive system (ICD-10) Hypertension ?I10 - Essential (primary) hypertension (ICD-10) Diabetes ?E11.9 - Type 2 diabetes mellitus without complications (ICD-10) Depression ?F32.A - Depression, unspecified (ICD-10) Diabetes type 2, controlled ?E11.9 - Type 2 diabetes mellitus without complications (ICD-10) Surgical History Hx of nasal septoplasty ?Z98.890 - Other specified postprocedural states (ICD-10) S/P ACL repair ?Z98.890 - Other specified postprocedural states (ICD-10) H/O hernia repair ?Z98.890 - Other specified postprocedural states (ICD-10) ?Z87.19 - Personal history of other diseases of the digestive system (ICD-10) H/O stapedectomy ?Z90.09 - Acquired absence of other part of head and neck (ICD-10) Social History Narrative: Currently living with mother in [place]. Brother Des ( in [place], [place]) would be medical decision maker if needed. History of alcohol abuse. Requests Full Code status. What is your current living situation?: I have a place to live at present, but am concerned about future Problems where you live: no known problems Problems where you live details: pt lives in basement of mothers home In the past 12 months, utilities in danger of being shut off: no In past 12 months, lack of transportation kept you from medical appts, meetings, work, or getting things needed for daily living: declined to answer In the past 12 mos, have been you worried that your food would run out before you had money to buy more?: never true In the past 12 mos, the food you bought just didn't last and you didn't have money to buy more?: never true Highest level of school completed/degree received: Bachelor's degree Smoking Status: Smoker, status unknown Do you use any of these nicotine containing products: Smokeless Tobacco Nicotine containing products detail: chew How often do you have a drink containing alcohol: 4 or more times a week Alcohol type: hard liquor Alcohol type details: pt drinks a 5th of whisky daily How many standard drinks containing alcohol do you have on a typical day: 5 or 6 How often do you have six or more drinks on one occasion: Daily or almost daily AUDIT-C Alcohol total score: 10 Non-prescribed substance use: denies use Caffeine: No How often does anyone, including family, friends and others, physically hurt you: never How often does anyone, including family, friends and others, insult or talk down to you: never How often does anyone, including family, friends and others, threaten you with harm: never How often does anyone, including family, friends and others, scream or curse at you: never service: No Exam Const: Vital Signs, click to edit/add: Vital Signs - 24 hr 02/07/24 12:06 02/07/24 12:21 02/07/24 13:30 Temperature 98.8 F Pulse Rate Pulse Rate [Pulse Oximeter] 125 H 110 H Pulse Rate [Right Brachial] Respiratory Rate 18 18 Blood Pressure [Ri ght Arm] Blood Pressure [Ri ght Upper Arm] 158/95 H 155/91 H Pulse Oximetry 98 98 98 Oxygen Delivery Me thod Room Air Room Air 02/07/24 15:12 02/07/24 15:31 02/07/24 16:00 Temperature 98.9 F 98.9 F Pulse Rate Pulse Rate [Pulse Oximeter] Pulse Rate [Right Brachial] 101 H 101 H Respiratory Rate 18 18 18 Blood Pressure [Ri ght Arm] 158/79 H 158/79 H Blood Pressure [Ri ght Upper Arm] Pulse Oximetry 100 100 100 Oxygen Delivery Me thod Room Air Room Air Room Air 02/07/24 16:12 Temperature Pulse Rate 97 Pulse Rate [Pulse Oximeter] Pulse Rate [Right Brachial] Respiratory Rate Blood Pressure [Ri ght Arm] Blood Pressure [Ri ght Upper Arm] Pulse Oximetry Oxygen Delivery Me thod Woodrow is alert, interactive, no apparent distress. With any movement of his arms or legs you do see tremulous movement. Pupils are equal round reactive, sclera clear. He has contusion on his right frontal forehead with raised area and underlying ecchymosis, no open wound. No drainage from his nares or ears. Able speak in complete sentences. Mucosa is dry. Neck is supple, no adenopathy, no masses. Has no midline tenderness of his neck, no tenderness over his back, see no traumatic government contracts manager his back. Lungs are clear, good air entry, no wheezing or crackles. CV fast but regular, no murmur, normal S1-S2. Abdomen is soft, nondistended, nontender, no masses noted. Can follow commands, is tremulous with any movement. Seems to have symmetrical strength. Did not ambulate him at this time. No hallucinations noted at this time. Documenting provider has reviewed patient's vital signs: yes Course Course ED Course: We all agree that head CT imaging will be done. Nursing staff is placing an IV, he will get an initial L of IV fluids, have ordered 1 mg IV Ativan. Did review with them that I would like to initiate phenobarbital, will start with 130 mg IV. Will get full complement of labs. Woodrow feels that is nausea and vomiting and the tremors come when he gets this postnasal drainage. Reviewed with him that we will certainly look into the postnasal drainage, the head CT can show as the sinuses. Did review with him that I do think we need to be concerned that he might be an alcohol withdrawal as he has not been drinking. Discussed with him that we really should safely treat for that complication is well, do not want him going into an alcohol withdrawal seizure. He does accept this approach, is agreeable to evaluation workup. I have talked to his brothers, does not sound like he is in a safe situation to return home given his history. Will talk to our hospitalist. Program Admin can help them as well with ultimate disposition. Reevaluation(s) Time of Reevaluation #1: 13:15 Reevaluation #1: Woodrow is alert, interactive. Reviewed with him his lactate is 7.7. Nursing staff will do an Accu-Chek just to ensure that his glucose is not significantly elevated, need to make sure that we do not need to consider hyperosmolar nonketotic syndrome. I have ordered a 2 L of normal saline, did order IV fluids with the multivitamins, thiamine, folate. Time of Reevaluation #2: 13:38 Reevaluation #2: Magnesium is low at 1.2. Will initiate IV magnesium. Head CT showing the frontal hematoma but no sinus disease, no acute intracranial pathology from trauma. Consultations Consultation #1: Did review with the hospitalist Sasha RIVERA regarding likely admission of this patient. She will need to see if there is CCU capacity and staffing to care for him. She will let me know. Will continue to proceed with our evaluation and management of him here. Time: 12:39 Consultation #2: Have updated the hospitalists, plan will be for patient to go to CCU here for alcohol withdrawal, hypomagnesemia, alcohol hepatitis. Will also give him a dose of IV Protonix in case there is underlying alcoholic induced gastritis. Time: 13:52 Vital Signs Vital signs: Initial Vital Signs Temperature 98.8 F 02/07/24 12:06 Temperature Source Temporal Artery Scan 02/07/24 12:06 Pulse Rate 125 H 02/07/24 12:06 Respiratory Rate 18 02/07/24 12:06 Blood Pressure 158/95 H 02/07/24 12:06 Blood Pressure Mean 116 H 02/07/24 12:06 Blood Pressure Position Sitting 02/07/24 12:06 Pulse Oximetry 98 02/07/24 12:06 Oxygen Delivery Method Room Air 02/07/24 12:06 Vital Signs Temperature 98.8 F 02/07/24 12:06 Pulse Rate 125 H 02/07/24 12:06 Respiratory Rate 18 02/07/24 12:06 Blood Pressure 158/95 H 02/07/24 12:06 Pulse Oximetry 98 02/07/24 12:06 Oxygen Delivery Method Room Air 02/07/24 12:06 Temperature 98.6 F 02/07/24 19:50 Pulse Rate 94 02/07/24 19:50 Respiratory Rate 16 02/07/24 19:50 Blood Pressure 152/92 H 02/07/24 19:50 Pulse Oximetry 99 02/07/24 19:50 Oxygen Delivery Method Room Air 02/07/24 19:50 Medications Administered Medications: Generic Name Dose Route Start Last Admin Trade Name Freq PRN Reason Stop Dose Admin Enoxaparin Sodium 40 mg 02/07/24 21:00 02/07/24 20:49 Enoxaparin 40 Mg/0.4 Ml Inj SUBCUT 40 mg HS BLANCA Administration Gabapentin 600 mg 02/07/24 21:00 02/07/24 20:49 Gabapentin 300 Mg Capsule PO 600 mg HS BLANCA Administration Sodium Chloride 1,000 mls @ 125 mls/hr 02/07/24 16:13 02/07/24 19:02 0.9 % Sodium Chloride 1000 Ml IV 02/08/24 04:12 125 mls/hr .Q8H BLANCA Administration Insulin Aspart 0 unit 02/07/24 18:00 02/07/24 17:02 Insulin Aspart 100 Unit/Ml SUBCUT 1 unit TIDWM BLANCA Administration Protocol Lorazepam 1 - 4 mg 02/07/24 16:13 02/07/24 17:03 Lorazepam 1 Mg Tablet PO 1 mg Q1H PRN Administration Alcohol Withdrawal Protocol Sodium Chloride 5 ml 02/07/24 21:00 02/07/24 20:49 Sodium Chloride 0.9 % (Flush) 10 Ml Syringe IVF 5 ml BID BLANCA Administration Thiamine HCl 100 mg 02/07/24 16:13 02/07/24 16:48 Thiamine 100 Mg Tablet PO 02/09/24 16:14 100 mg Q24H BLANCA Administration Discontinued Medications Generic Name Dose Route Start Last Admin Trade Name Freq PRN Reason Stop Dose Admin Sodium Chloride 1,000 mls @ 1,000 mls/hr 02/07/24 12:22 02/07/24 13:25 0.9 % Sodium Chloride 1000 Ml IV 02/07/24 13:21 Infused .Q1H BLANCA Infusion Phenobarbital 130 mg/ Sodium 102 mls @ 204 mls/hr 02/07/24 12:40 02/07/24 13:50 Chloride IVPB 02/07/24 12:41 Infused ONCE ONE Infusion Sodium Chloride 1,000 mls @ 1,000 mls/hr 02/07/24 13:06 02/07/24 18:36 0.9 % Sodium Chloride 1000 Ml IV 02/07/24 14:05 Infused .Q1H BLANCA Infusion Folic Acid 1 mg/ Multivitamins 1,011.2 mls @ 252.8 mls/hr 02/07/24 13:15 02/07/24 18:35 10 ml/ Thiamine HCl 100 mg/ IV 02/07/24 17:14 Infused Sodium Chloride .Q4H BLANCA Infusion Magnesium Sulfate 2 gm in 50 mls @ 25 mls/hr 02/07/24 13:38 02/07/24 17:00 Magnesium Iv IVPB 02/07/24 15:37 Infused ONCE ONE Infusion Lorazepam 1 - 2 mg 02/07/24 12:21 02/07/24 12:25 Lorazepam 2 Mg/Ml Inj IVP 2 mg Q1H PRN Administration Alcohol Withdrawal Pantoprazole Sodium 80 mg 02/07/24 13:53 02/07/24 14:35 Pantoprazole Sodium 40 Mg Inj IVP 02/07/24 13:54 80 mg ONCE ONE Administration Potassium Chloride 40 meq 02/07/24 16:13 02/07/24 16:47 Potassium Chloride 10 Meq Capsule Er PO 02/07/24 16:14 40 meq ONCE ONE Administration Medical Decision Making Lab Data Lab results reviewed: Yes I reviewed the patient's lab results Labs: Lab Results 02/07/24 02/07/24 Range/Units 12:43 13:51 WBC 4.37 L (4.50-11.00) K/uL RBC 3.18 L (4.30-5.90) m/uL Hgb 11.2 L (13.5-17.5) gm/dL Hct 32.3 L (37.0-53.0) % MCV 102 H (80-100) fL MCH 35 H (26-34) pg MCHC 35 (32-36) gm/dL RDW Coeff of Justin 13.4 (11.5-15.5) % Plt Count 127 L (140-440) K/uL Neut % (Auto) 73.8 H (42.0-72.0) % Lymph % (Auto) 19.7 L (20-44) % [place] % (Auto) 5.3 (0.0-11.0) % Eos % (Auto) 0.0 (0.0-7.0) % Baso % (Auto) 0.7 (0.0-3.0) % Neut # (Auto) 3.20 (1.7-7.0) K/uL Lymph # (Auto) 0.90 (0.90-2.90) K/uL [place] # (Auto) 0.20 (0.00-0.90) K/UL Eos # (Auto) 0.00 (0.00-0.50) K/uL Baso # (Auto) 0.00 (0.00-0.30) K/uL Abs Immat Gran (auto) 0.00 (0.00-0.30) K/uL Imm/Tot Granulo (auto) 0.5 % INR 1.09 (0.91-1.10) APTT 26 (23-33) Seconds Sodium 138 (135-149) mmol/L Potassium 3.5 L (3.6-5.1) mmol/L Chloride 94 L (96-114) mmol/L Carbon Dioxide 22 (20-32) mmol/L Anion Gap 22 H (7-15) mEq/L BUN 18 (7-30) mg/dL Creatinine 1.2 (0.5-1.5) mg/dL Estimated Creat Clear 56.92 Estimated GFR 68 ml/min Glucose 211 H (60-115) mg/dL Lactate 7.7 H* (0.5-1.9) mmol/L Calcium 8.6 (8.4-10.6) mg/dL Magnesium 1.2 L (1.5-2.6) mg/dL Total Bilirubin 1.5 (0.1-1.5) mg/dL Direct Bilirubin 0.6 H (0.0-0.5) mg/dL AST 226 H (12-35) U/L ALT 57 H (4-50) U/L Alkaline Phosphatase 93 (40-150) U/L Ammonia < 9.0 L (13.1-30.0) umol/L Troponin I < 0.01 L (0.01-0.04) ng/mL Total Protein 8.0 (6.0-8.3) g/dL Albumin 5.2 H (3.3-5.0) g/dL Lipase 15 L (23-300) U/L Ethyl Alcohol < 0.01 L (0.01-0.03) % Lab Acknowledgement Test Added Imaging Data CT scan - head: Attestation: I have reviewed the pertinent imaging results. Radiologist's impression: Patient: WOODROW MADRID Facility:?[facility] Patient ID:?[id number] Site Patient ID:?[id number]. Site :?[id number] Study:?CT-Head -02/07/2024 1:12:44 PM Ordering Physician:?Comfort Marrero Final Report: INDICATION: WEAKNESS, NAUSEA, VOMITING, BUMP ON FOREHEAD TECHNIQUE: CT of the head was performed without IV contrast. COMPARISON: None. FINDINGS: Parenchyma: No acute hemorrhage, infarction, or mass. Mild scattered periventricular white matter hypoattenuation is nonspecific and is favored to represent chronic small vessel ischemic disease. Ventricles and extra-axial spaces: Mild involutional changes. Visualized paranasal sinuses: Clear. Mastoid air cells: Clear. Bones: No focal abnormality. Additional comment: [id number] right frontal scalp hematoma. IMPRESSION: No acute intracranial abnormality. Please note that all CT scans at this facility use dose modulation, iterative reconstruction, and/or weight-based dosing when appropriate to reduce radiation dose to as low as reasonably achievable. Dictated by Danny Miller MD @ 02/07/2024 1:18:38 PM (Electronic Signature) ECG Data Attestation: I personally reviewed and interpreted this ECG as follows: (Sinus tachycardia with first-degree AV block, 103 beats per minute. Q-waves V1 V2 without acute ST or T-wave segment changes.) Prior ECG tracings: available for review Discharge Plan Discharge Clinical Impression: Alcoholic hepatitis, Alcohol withdrawal, Hypomagnesemia Patient Disposition: Admitted As Observation
[2024-02-07] MEDS: 0.9 % SODIUM CHLORIDE 1000 ml 1,000 ML IV ×2 (12:30→14:20)
--- NOTE | 2024-02-07 12:40 | CRLHL7_ITS ---
For Patients: As a result of the Century Cures Act, medical imaging exams and procedure reports are released immediately into your electronic medical record. You may view this report before your referring provider. If you have questions, please contact your health care provider. INDICATION: WEAKNESS, NAUSEA, VOMITING, BUMP ON FOREHEAD TECHNIQUE: CT of the head was performed without IV contrast. COMPARISON: None. FINDINGS: Parenchyma: No acute hemorrhage, infarction, or mass. Mild scattered periventricular white matter hypoattenuation is nonspecific and is favored to represent chronic small vessel ischemic disease. Ventricles and extra-axial spaces: Mild involutional changes. Visualized paranasal sinuses: Clear. Mastoid air cells: Clear. Bones: No focal abnormality. Additional comment: [id number] right frontal scalp hematoma. IMPRESSION: No acute intracranial abnormality. Please note that all CT scans at this facility use dose modulation, iterative reconstruction, and/or weight-based dosing when appropriate to reduce radiation dose to as low as reasonably achievable. Dictated by Danny Miller MD @ 02/07/2024 1:18:38 PM (Electronically Signed)
[2024-02-07 12:52] LABS: Lactate* 7.7 mmol/L (0.5-1.9)
[2024-02-07 12:55] LABS: Basophils Percent Auto 0.7 % (0.0-3.0); Hematocrit 32.3 % (37.0-53.0); Hemoglobin* 11.2 gm/dL (13.5-17.5); Immature Granulocytes Pct Auto 0.5 %; Lymphocytes Percent Auto 19.7 % (20-44); Mean Corpuscular HGB Conc 35 gm/dL (32-36); Mean Corpuscular Hemoglobin 35 pg (26-34); Mean Corpuscular Volume 102 fL (80-100); Monocytes Percent Auto 5.3 % (0.0-11.0); Neutrophils Percent Auto 73.8 % (42.0-72.0); Platelet Count* 127 K/uL (140-440); RDW Coefficient of Variation % 13.4 % (11.5-15.5); Red Blood Count 3.18 m/uL (4.30-5.90); White Blood Count* 4.37 K/uL (4.50-11.00)
[2024-02-07 12:57] LABS: Slide Review Reflex No
[2024-02-07 13:07] LABS: Chloride* 94 mmol/L (96-114)
[2024-02-07 13:08] LABS: Albumin* 5.2 g/dL (3.3-5.0); Potassium* 3.5 mmol/L (3.6-5.1); Sodium* 138 mmol/L (135-149)
[2024-02-07 13:10] LABS: Creatinine* 1.2 mg/dL (0.5-1.5); Est. Creatinine Clearance* 56.92; Estimated Glomerular Filt Rate 68 ml/min
[2024-02-07 13:11] LABS: Alanine Aminotransferase* 57 U/L (4-50); Alkaline Phosphatase* 93 U/L (40-150); Anion Gap 22 mEq/L (7-15); Aspartate Amino Transferase* 226 U/L (12-35); Bilirubin Direct* 0.6 mg/dL (0.0-0.5); Bilirubin Total* 1.5 mg/dL (0.1-1.5); Blood Urea Nitrogen* 18 mg/dL (7-30); Calcium* 8.6 mg/dL (8.4-10.6); Carbon Dioxide* 22 mmol/L (20-32); Glucose* 211 mg/dL (60-115); Lipase* 15 U/L (23-300); Magnesium* 1.2 mg/dL (1.5-2.6)
[2024-02-07 13:15] LABS: Ammonia* < 9.0 umol/L (13.1-30.0)
[2024-02-07] MEDS: PHENobarbitaL 130 MG in 0.9 % SODIUM CHLORIDE 100 ml 100 ML 204 MG IVPB (13:15)
[2024-02-07 13:24] LABS: Troponin I* < 0.01 ng/mL (0.01-0.04)
[2024-02-07 14:01] LABS: Prothrombin Time 14.8 Seconds
[2024-02-07 14:02] LABS: INR 1.09 (0.91-1.10); Partial Thromboplastin Time* 26 Seconds (23-33)
[2024-02-07 14:14] LABS: Ethanol* < 0.01 % (0.01-0.03)
[2024-02-07] MEDS: PANTOPRAZOLE SODIUM 40 MG INJ 80 MG IVP (14:35)
[2024-02-07] MEDS: MAGNESIUM IV 2 GM/50 ML PIGGYBACK IVPB (14:40)
--- NOTE | 2024-02-07 14:49 | ED.NURSE ---
Nurse report given to miguel RN, pt to room CCU3.
--- NOTE | 2024-02-07 15:53 | PM.IMHP1 ---
Hospitalist- H&P: HPI History of Present Illness Date Seen: 02/07/24 Chief complaint: Weakness Narrative: Woodrow Holder is a 64 year old male with past medical history of DM, HTN, HLD, Ascending aortic aneurysm, alcoholic hepatitis, ETOH use disorder, Hx of pancreatitis & alcohol withdrawal complicated with seizures who presented to the ED with weakness, nausea, vomiting 2/2 alcohol withdrawal, he also fell last night but he cannot remember it and he has a bump on forehead. His last seizure was when he was hospitalized at [facility], maybe has been years. Woodrow endorses that he is been trying to cut back on alcohol but is still probably drinking a 5th of hard liquor daily. His last drink was last night. There is a concern that the patient has liver fibrosis/ cirrhosis and history of hepatic encephalopathy; he has a history of jaundice but no history of hepatitis or heavy hematemesis. At the ED patient was hemodynamically stable, heart rate elevated at 1 10s. Lactic acid elevated at 7.7, magnesium 1.2. CT head was unremarkable. 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 ?K70.2 - Alcoholic fibrosis and sclerosis of liver (ICD-10) Noncompliance with medication regimen ?Z91.148 - Patient's other noncompliance with medication regimen for other reason (ICD-10) Medication noncompliance due to cognitive impairment ?R41.9 - Unspecified symptoms and signs involving cognitive functions and awareness (ICD-10) ?Z91.148 - Patient's other noncompliance with medication regimen for other reason (ICD-10) Malnutrition ?E46 - Unspecified protein-calorie malnutrition (ICD-10) Ascending aortic aneurysm ?I71.21 - Aneurysm of the ascending aorta, without rupture (ICD-10) History of pancreatitis ?Z87.19 - Personal history of other diseases of the digestive system (ICD-10) Hypertension ?I10 - Essential (primary) hypertension (ICD-10) Diabetes ?E11.9 - Type 2 diabetes mellitus without complications (ICD-10) Depression ?F32.A - Depression, unspecified (ICD-10) Diabetes type 2, controlled ?E11.9 - Type 2 diabetes mellitus without complications (ICD-10) Surgical History Hx of nasal septoplasty ?Z98.890 - Other specified postprocedural states (ICD-10) S/P ACL repair ?Z98.890 - Other specified postprocedural states (ICD-10) H/O hernia repair ?Z98.890 - Other specified postprocedural states (ICD-10) ?Z87.19 - Personal history of other diseases of the digestive system (ICD-10) H/O stapedectomy ?Z90.09 - Acquired absence of other part of head and neck (ICD-10) Social History Narrative: Currently living with mother in [place]. Brothcarlos Nunes MICHAEL in [place], [place]) would be medical decision maker if needed. History of alcohol abuse. Requests Full Code status. What is your current living situation?: I have a place to live at present, but am concerned about future Problems where you live: no known problems Problems where you live details: pt lives in basement of mothers home In the past 12 months, utilities in danger of being shut off: no In past 12 months, lack of transportation kept you from medical appts, meetings, work, or getting things needed for daily living: declined to answer In the past 12 mos, have been you worried that your food would run out before you had money to buy more?: never true In the past 12 mos, the food you bought just didn't last and you didn't have money to buy more?: never true Highest level of school completed/degree received: Bachelor's degree Smoking Status: Smoker, status unknown Do you use any of these nicotine containing products: Smokeless Tobacco Nicotine containing products detail: chew How often do you have a drink containing alcohol: 4 or more times a week Alcohol type: hard liquor Alcohol type details: pt drinks a 5th of whisky daily How many standard drinks containing alcohol do you have on a typical day: 5 or 6 How often do you have six or more drinks on one occasion: Daily or almost daily AUDIT-C Alcohol total score: 10 Non-prescribed substance use: denies use Caffeine: No How often does anyone, including family, friends and others, physically hurt you: never How often does anyone, including family, friends and others, insult or talk down to you: never How often does anyone, including family, friends and others, threaten you with harm: never How often does anyone, including family, friends and others, scream or curse at you: never service: No Meds Home Medications and Allergies Home Medications ?Medication ?Instructions ?Recorded ?Confirmed ?Type losartan 100 mg tablet 100 mg PO DAILY 07/11/23 02/07/24 History acetaminophen 325 mg tablet 650 mg PO Q4H PRN 02/07/24 02/07/24 History amlodipine 5 mg tablet 5 mg PO DAILY 02/07/24 02/07/24 History azelastine 137 mcg (0.1 %) nasal 1 spray intranasal BID 02/07/24 02/07/24 History spray gabapentin 300 mg capsule 300 mg PO DAILY 02/07/24 02/07/24 History gabapentin 300 mg capsule 600 mg PO HS 02/07/24 02/07/24 History metformin 500 mg tablet,extended 500 mg PO BIDWM 02/07/24 02/07/24 History release 24 hr omeprazole 40 mg capsule,delayed 40 mg PO DAILY 02/07/24 02/07/24 History release pravastatin 10 mg tablet 10 mg PO HS 02/07/24 02/07/24 History Allergies Allergy/AdvReac Type Severity Reaction Status Date / Time Penicillins Allergy Unknown Verified 11/20/23 10:32 Exam Narrative: Exam Narrative: Physical exam GENERAL: Patient was shaky, has tremors, no acute distress. HEAD AND NECK: bruising on the forehead, normocephalic CARDIOVASCULAR: . Tachycardic. Normal S1, S2. No murmurs. RESPIRATORY: Clear to auscultation B/L. Good air entry B/L. No wheezes or rhonchi. GASTROINTESTINAL: Not distended, not tender to palpation. NEUROLOGY: Alert, awake, oriented X 3. Normal speech. No focal weakness. PSYCH: Normal mood, normal affect. SKIN: a skin lesion about 3 cm at the ball of the right foot, insert with discoloration, nontender on palpation. Const: Vital Signs, click to edit/add: Vital Signs - 24 hr 02/07/24 12:06 02/07/24 12:21 02/07/24 13:30 Temperature 98.8 F Pulse Rate [Pulse Oximeter] 125 H 110 H Pulse Rate [Right Brachial] Respiratory Rate 18 18 Blood Pressure [Ri ght Arm] Blood Pressure [Ri ght Upper Arm] 158/95 H 155/91 H Pulse Oximetry 98 98 98 Oxygen Delivery Me thod Room Air Room Air 02/07/24 15:12 02/07/24 15:31 Temperature 98.9 F Pulse Rate [Pulse Oximeter] Pulse Rate [Right Brachial] 101 H Respiratory Rate 18 18 Blood Pressure [Ri ght Arm] 158/79 H Blood Pressure [Ri ght Upper Arm] Pulse Oximetry 100 100 Oxygen Delivery Me thod Room Air Room Air Hospitalist - H&P: Result Labs Labs: Short CBC 02/07/24 Range/Units 12:43 WBC 4.37 L (4.50-11.00) K/uL Hgb 11.2 L (13.5-17.5) gm/dL Hct 32.3 L (37.0-53.0) % Plt Count 127 L (140-440) K/uL BMP 02/07/24 12:43 Sodium 138 Potassium 3.5 L Chloride 94 L Carbon Dioxide 22 BUN 18 Creatinine 1.2 Glucose 211 H Calcium 8.6 Cardiac Enzymes 02/07/24 Range/Units 12:43 Troponin I < 0.01 L (0.01-0.04) ng/mL Liver Function 02/07/24 Range/Units 12:43 Total Bilirubin 1.5 (0.1-1.5) mg/dL Direct Bilirubin 0.6 H (0.0-0.5) mg/dL AST 226 H (12-35) U/L ALT 57 H (4-50) U/L Alkaline Phosphatase 93 (40-150) U/L Albumin 5.2 H (3.3-5.0) g/dL ECG Attestation: I personally reviewed and interpreted this ECG as follows: ECG interpretation date: 02/07/24 Interpretation: EKG was showing sinus tachycardia, first-degree heart block, QTC [address] scan - head: Radiologist's impression: CT of the head was performed without IV contrast. COMPARISON: None. FINDINGS: Parenchyma: No acute hemorrhage, infarction, or mass. Mild scattered periventricular white matter hypoattenuation is nonspecific and is favored to represent chronic small vessel ischemic disease. Ventricles and extra-axial spaces: Mild involutional changes. Visualized paranasal sinuses: Clear. Mastoid air cells: Clear. Bones: No focal abnormality. Additional comment: [id number] right frontal scalp hematoma. IMPRESSION: No acute intracranial abnormality. Please note that all CT scans at this facility use dose modulation, iterative reconstruction, and/or weight-based dosing when appropriate to reduce radiation dose to as low as reasonably achievable. Dictated by Danny Miller MD @ 02/07/2024 1:18:38 PM Assessment and Plan Assessment and plan (1) Alcohol withdrawal: Problem comment: -Tremors, heart rate elevated at 110s. Lactic acid elevated at 7.7 -IVF: Status post 2 L of fluids in the ED, will continue maintenance. NS at a rate of 125 mL/hour -Thiamine, folate ordered -CIWA ordered -PPI -Electrolytes replacement -history of withdrawal seizures, needs seizures precautions Status: Acute (2) Alcoholic hepatitis: Problem comment: -elevated the LFTs, elevated direct bilirubin -Maddrey score low at this time. 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 Severe fibrosis/cirrhosis scores may need liver biopsy for confirmation of cirrhosis unless there are other clinical or imaging signs of progression to end-stage liver disease. Status: Acute (4) Alcohol abuse: Problem comment: - will consult elementary school social worker, to help with resources and finding a facility for rehab Status: Acute (5) Diabetes: Problem comment: -started a low insulin sliding scale -patient is not taking medications at home use Status: Chronic (6) Hypertension: Problem comment: -patient is not taking medications at home Status: Chronic (7) Ascending aortic aneurysm: Problem comment: - a previous ECHO: dilation of the ascending aorta, 4.6 cm - seen by a desulfurizer hand and needs follow-up Status: Acute (8) Lactic acidosis: Problem comment: -resolved status post IV fluids Status: Acute (9) Malnutrition: Problem comment: Ordered a nutrition consult Status: Acute (10) Noncompliance with medication regimen: Problem comment: Counseled on taking medications Status: Acute Plan as above Total Time Spent Total Time Spent: Time spent: Today I spent 75 minutes seeing the patient, discussing the patient with ER staff, reviewing Expanse and EPIC notes/diagnostics, discussing the care plan with our care time that includes social work, PT/OT, pharmacy, RT, senior living and documenting my impressions and plan in the medical record.
[2024-02-07] MEDS: POTASSIUM CHLORIDE 10 MEQ CAPSULE ER 40 MEQ PO (16:47)
[2024-02-07] MEDS: THIAMINE 100 MG TABLET PO (16:48)
[2024-02-07] MEDS: INSULIN ASPART 100 UNIT/ML SUBCUT (17:02)
[2024-02-07] MEDS: LORazepam 1 MG TABLET PO (17:03)
[2024-02-07 17:31] LABS: Lactate* 1.6 mmol/L (0.5-1.9)
[2024-02-07] MEDS: 0.9 % SODIUM CHLORIDE 1000 ml 1,000 ML 125 ML IV (19:02)
--- NOTE | 2024-02-07 19:22 | PC.NURSE ---
shift note: pt to floor @ approx 1500 via cart from ED. Pt's brothers present at bedside. pt speech rambling. pt initially unable to state date. LS clr. pt very visibly tremulous in all extremities. Pt bilat l/e weak upon standing. Pt had 1 small loose BM. Pt tolerated soft diet. pt denies nausea.
[2024-02-07] MEDS: SODIUM CHLORIDE 0.9 % (FLUSH) 10 ML SYRINGE 5 ML IVF (20:49)
[2024-02-07] MEDS: ENOXAPARIN 40 MG/0.4 ML INJ SUBCUT (20:49)
[2024-02-07] MEDS: GABAPENTIN 300 MG CAPSULE 600 MG PO (20:49)
[2024-02-08] VITALS (11 sets, daily range): BP systolic 132–152; BP diastolic 82–97; PULSE 73–96; RESP 16–18; TEMP 36.6–37.2; O2SAT 97–100; BMI 23.3
--- NOTE | 2024-02-08 06:00 | PC.NURSE ---
END OF SHIFT NOTE: PT PLEASANT AND COOPERATIVE WITH CARES. A&O. DENIES CP, SOB, N/V. AMBULATES WITH A2, GB TO BSC. CIWA SCORES 8, 4, 4. VSS ON RA; AFEBRILE. BUE TREMORS. PT UP MOST OF THE NIGHT WATCHING MOVIES ON PHONE. BLOOD BLISTER TO PLANTAR SIDE OF RIGHT FOOT. TELE READS NSR WITH 1ST DEG HB.?BED ALARM ON AND CALL LIGHT WITHIN PT?S REACH. USING CALL LIGHT APPROPRIATELY.?
[2024-02-08 06:38] LABS: Basophils Percent Auto 1.3 % (0.0-3.0); Eosinophils Percent Auto 1.3 % (0.0-7.0); Hematocrit 24.4 % (37.0-53.0); Hemoglobin* 8.5 gm/dL (13.5-17.5); Immature Granulocytes Pct Auto 0.3 %; Lymphocytes Percent Auto 52.4 % (20-44); Mean Corpuscular HGB Conc 35 gm/dL (32-36); Mean Corpuscular Hemoglobin 36 pg (26-34); Mean Corpuscular Volume 102 fL (80-100); Monocytes Percent Auto 9.3 % (0.0-11.0); Neutrophils Percent Auto 35.4 % (42.0-72.0); Platelet Count* 79 K/uL (140-440); RDW Coefficient of Variation % 13.3 % (11.5-15.5); Red Blood Count 2.39 m/uL (4.30-5.90); White Blood Count* 3.11 K/uL (4.50-11.00)
[2024-02-08 06:44] LABS: Slide Review Reflex No
[2024-02-08 06:52] LABS: Albumin* 3.4 g/dL (3.3-5.0); Chloride* 104 mmol/L (96-114)
[2024-02-08 06:53] LABS: Potassium* 3.1 mmol/L (3.6-5.1); Sodium* 135 mmol/L (135-149)
[2024-02-08 06:55] LABS: Anion Gap 6 mEq/L (7-15); Aspartate Amino Transferase* 103 U/L (12-35); Bilirubin Total* 2.1 mg/dL (0.1-1.5); Blood Urea Nitrogen* 9 mg/dL (7-30); Carbon Dioxide* 25 mmol/L (20-32); Creatinine* 0.9 mg/dL (0.5-1.5); Est. Creatinine Clearance* 76.59; Estimated Glomerular Filt Rate 97 ml/min; Total Protein* 5.8 g/dL (6.0-8.3)
[2024-02-08 06:56] LABS: Alanine Aminotransferase* 40 U/L (4-50); Alkaline Phosphatase* 69 U/L (40-150); Calcium* 7.5 mg/dL (8.4-10.6); Glucose* 100 mg/dL (60-115); Magnesium* 1.4 mg/dL (1.5-2.6)
[2024-02-08] MEDS: AMLODIPINE 5 MG TABLET PO (07:42)
[2024-02-08] MEDS: POTASSIUM BICARB 25 MEQ EFFERVESCENT TAB 50 MEQ PO (07:42)
[2024-02-08] MEDS: MULTIVITAMIN/MINERALS 1 TABLET 1 TAB PO (07:43)
[2024-02-08] MEDS: FOLIC ACID 1 MG TABLET PO (07:43)
[2024-02-08] MEDS: GABAPENTIN 300 MG CAPSULE PO (07:43)
[2024-02-08] MEDS: SODIUM CHLORIDE 0.9 % (FLUSH) 10 ML SYRINGE 5 ML IVF ×2 (07:44→20:51)
[2024-02-08] MEDS: MAGNESIUM IV 2 GM/50 ML PIGGYBACK IVPB (07:45)
[2024-02-08] MEDS: PANTOPRAZOLE SODIUM 40 MG INJ IVP (08:43)
[2024-02-08] MEDS: INSULIN ASPART 100 UNIT/ML SUBCUT ×2 (11:16→17:59)
--- NOTE | 2024-02-08 13:57 | PM.IMPN1 ---
Progress Note: A&P Assessment and plan (1) Alcohol withdrawal: Problem details: -Tremors, heart rate elevated at 110s. Lactic acid elevated at 7.7 -IVF: Status post 2 L of fluids in the ED, will continue maintenance. NS at a rate of 125 mL/hour -Thiamine, folate ordered -CIWA ordered -PPI -Electrolytes replacement -history of withdrawal seizures, needs seizures precautions 02/07: Vitally stable, tachycardia resolved, lactic acid improved to 1.6. CIWA scores have been 8-4-4. Adequate oral intake without nausea vomiting. IVF have been discontinued. Continue on oral thiamine, folic acid, MVI. Status: Acute (2) Alcoholic hepatitis: Problem details: -elevated the LFTs, elevated direct bilirubin - AST and ALT down trending, total bilirubin 2.1 (baseline 1.6-2.6) -Maddrey score low at this time. 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 Severe fibrosis/cirrhosis scores may need liver biopsy for confirmation of cirrhosis unless there are other clinical or imaging signs of progression to end-stage liver disease. Status: Acute (4) Alcohol abuse: Problem details: - will consult social media coordinator, to help with resources and finding a facility for rehab Status: Acute (5) Diabetes: Problem details: -started a low insulin sliding scale -patient is not taking medications at home Status: Chronic (6) Hypertension: Problem details: -patient is not taking medications at home Status: Chronic (7) Ascending aortic aneurysm: Problem details: - a previous ECHO: dilation of the ascending aorta, 4.6 cm - seen by a inspector metal fabricating and needs outpatient follow-up Status: Acute (8) Lactic acidosis: Problem details: -resolved status post IV fluids - resolved Status: Resolved (9) Malnutrition: Problem details: In setting of chronic alcohol use. Ordered a nutrition consult Status: Acute (10) Noncompliance with medication regimen: Problem details: Counseled on taking medications Status: Acute (11) Hypomagnesemia: Problem details: Magnesium 1.4, replace with 2 g IV Status: Acute (12) Hypokalemia: Problem details: Potassium 3.1, previously 3.5. Replace with oral supplement Status: Acute Plan Continue on CIWA, continue with therapies. Likely discharge tomorrow following recheck labs and ongoing clinical improvement. Time Spent With Patient Total time spent: Total time spent caring for the patient today was 45 minutes. This includes time spent for the visit reviewing the chart, time spent during the visit, time spent after the visit and documentation and planning in coordination of care. Subjective Date Seen: 02/08/24 Interval history: Patient is seen sitting up in a chair this morning. Reports feeling pretty good. Tells me his vertigo has completely resolved. Denies headache or lightheadedness. Denies chest pain or shortness of breath. Denies nausea. Tolerating orals without vomiting. Overnight CIWA scores 8-4-4. Remains vitally stable. No need for oxygen. Received ample amount of IV fluids yesterday, in general, hemoglobin and platelets have dropped, potassium, calcium, and magnesium low. AST and ALT have improved. Exam Narrative: Exam Narrative: PHYSICAL EXAM General: Pleasant, very conversant, NAD HEENT: Normocephalic, atraumatic, sclera white, EOMI, oral mucosa moist Cardiovascular: RRR, S1S2. No pitting edema Pulmonary: CTA bilaterally without rhonchi, rales, expiratory wheezes. No dyspnea on room air Abdominal: Soft, nondistended, NTTP Neurological: Alert, answering questions appropriately, cranial nerves intact, no focal findings on exam Extremities: No gross joint deformity or swelling. AROMI. Neurovascularly intact Skin: Warm, dry. Const: Vital Signs, click to edit/add: Vital Signs - 24 hr 02/07/24 15:12 02/07/24 15:31 02/07/24 16:00 Temperature 98.9 F 98.9 F Pulse Rate Pulse Rate [Pulse Oximeter] Pulse Rate [Right Brachial] 101 H 101 H Respiratory Rate 18 18 18 Blood Pressure [Le ft Arm] Blood Pressure [Ri ght Arm] 158/79 H 158/79 H Pulse Oximetry 100 100 100 Oxygen Delivery Me thod Room Air Room Air Room Air 02/07/24 16:12 02/07/24 16:51 02/07/24 18:04 Temperature 98.7 F 98.8 F Pulse Rate 97 Pulse Rate [Pulse Oximeter] Pulse Rate [Right Brachial] 100 104 H Respiratory Rate 18 16 Blood Pressure [Le ft Arm] Blood Pressure [Ri ght Arm] 170/92 H 154/89 H Pulse Oximetry 99 99 Oxygen Delivery Me thod Room Air Room Air 02/07/24 19:00 02/07/24 19:50 02/07/24 19:50 Temperature 98.6 F 98.6 F Pulse Rate 94 Pulse Rate [Pulse Oximeter] Pulse Rate [Right Brachial] 94 94 Respiratory Rate 16 16 Blood Pressure [Le ft Arm] Blood Pressure [Ri ght Arm] 152/92 H 152/92 H Pulse Oximetry [address] thod Room Air Room Air 02/07/24 19:50 02/07/24 21:20 02/07/24 23:15 Temperature 99.0 F 98.7 F Pulse Rate Pulse Rate [Pulse Oximeter] 98 91 Pulse Rate [Right Brachial] 94 Respiratory Rate 16 16 16 Blood Pressure [Le ft Arm] 152/96 H 150/90 H Blood Pressure [Ri ght Arm] Pulse Oximetry [address] thod Room Air Room Air 02/07/24 23:15 02/08/24 00:38 02/08/24 01:00 Temperature 98.7 F 98.4 F Pulse Rate 83 Pulse Rate [Pulse Oximeter] 91 85 Pulse Rate [Right Brachial] Respiratory Rate 16 16 Blood Pressure [Le ft Arm] 150/90 H 150/90 H Blood Pressure [Ri ght Arm] Pulse Oximetry [address] thod Room Air Room Air 02/08/24 02:53 02/08/24 03:00 02/08/24 03:00 Temperature 98.1 F 98.1 F Pulse Rate 78 Pulse Rate [Pulse Oximeter] 82 82 Pulse Rate [Right Brachial] Respiratory Rate 18 18 Blood Pressure [Le ft Arm] 145/84 H 145/84 H Blood Pressure [Ri ght Arm] Pulse Oximetry 97 97 Oxygen Delivery Me thod Room Air Room Air 02/08/24 05:00 02/08/24 07:00 02/08/24 07:00 Temperature 98.1 F Pulse Rate 75 Pulse Rate [Pulse Oximeter] 85 92 Pulse Rate [Right Brachial] Respiratory Rate 18 18 Blood Pressure [Le ft Arm] 145/86 H Blood Pressure [Ri ght Arm] Pulse Oximetry 98 Oxygen Delivery Me thod Room Air 02/08/24 07:00 02/08/24 07:00 02/08/24 11:22 Temperature 98.1 F 98.1 F 98.3 F Pulse Rate Pulse Rate [Pulse Oximeter] 92 92 92 Pulse Rate [Right Brachial] Respiratory Rate 18 18 18 Blood Pressure [Le ft Arm] 145/86 H Blood Pressure [Ri ght Arm] 152/96 H 152/96 H 132/94 H Pulse Oximetry 98 98 97 Oxygen Delivery Me thod Room Air Room Air Room Air Labs Labs: Laboratory Results - last 24 hr 02/07/24 02/07/24 02/07/24 12:43 13:51 17:28 WBC RBC Hgb Hct MCV MCH MCHC RDW Coeff of Justin Plt Count Neut % (Auto) Lymph % (Auto) [place] % (Auto) Eos % (Auto) Baso % (Auto) Neut # (Auto) Lymph # (Auto) [place] # (Auto) Eos # (Auto) Baso # (Auto) Abs Immat Gran (auto) Imm/Tot Granulo (auto) INR 1.09 APTT 26 Sodium Potassium Chloride Carbon Dioxide Anion Gap BUN Creatinine Estimated Creat Clear Estimated GFR Glucose Lactate 1.6 Calcium Magnesium Total Bilirubin AST ALT Alkaline Phosphatase Total Protein Albumin Ethyl Alcohol < 0.01 L Lab Acknowledgement Test Added 02/08/24 06:12 WBC 3.11 L RBC 2.39 L Hgb 8.5 L Hct 24.4 L MCV 102 H MCH 36 H MCHC 35 RDW Coeff of Justin 13.3 Plt Count 79 L Neut % (Auto) 35.4 L Lymph % (Auto) 52.4 H [place] % (Auto) 9.3 Eos % (Auto) 1.3 Baso % (Auto) 1.3 Neut # (Auto) 1.10 L Lymph # (Auto) 1.60 [place] # (Auto) 0.30 Eos # (Auto) 0.00 Baso # (Auto) 0.00 Abs Immat Gran (auto) 0.00 Imm/Tot Granulo (auto) 0.3 INR APTT Sodium 135 Potassium 3.1 L Chloride 104 Carbon Dioxide 25 Anion Gap 6 L BUN 9 Creatinine 0.9 Estimated Creat Clear 76.59 Estimated GFR 97 Glucose 100 Lactate Calcium 7.5 L Magnesium 1.4 L Total Bilirubin 2.1 H AST 103 H ALT 40 Alkaline Phosphatase 69 Total Protein 5.8 L Albumin 3.4 Ethyl Alcohol Lab Acknowledgement
--- NOTE | 2024-02-08 16:05 | PC.NURSE ---
End of shift [id number]: Pt has been A&O, VSS and afebrile this shift. CIWA's q4H were 4 > 2. PIV in left AC SL and C/D/I. Pt's mobility has significantly improved since previous shift & he is now SBA with gait belt, no 2ww necessary per PT. TELE reads SR w/ 1st degree block. Blood sugars were 110 > 252; he received 3 units Novolog with lunch. Pt had x3 meals by noon this morning; he thought he could pre-order his lunch but it was brought up right away. He is continent of B&B; no BM today. Pt can be impulsive & has poor balance so bed alarms should be in place. K+ 3.1; replaced with 50mEq PO. Mag 1.4; replaced with 2g IV.
[2024-02-08] MEDS: THIAMINE 100 MG TABLET PO (16:11)
[2024-02-08] MEDS: GABAPENTIN 300 MG CAPSULE 600 MG PO (20:50)
[2024-02-08] MEDS: ENOXAPARIN 40 MG/0.4 ML INJ SUBCUT (20:50)
[2024-02-08] MEDS: POTASSIUM CHLORIDE 10 MEQ CAPSULE ER 20 MEQ PO (20:51)
--- NOTE | 2024-02-08 22:33 | PC.NURSE ---
End of shift [id number]: Pt has been A&O, pleasant and cooperative. VSS. Pt denies N/V/D/CP/SOB/PAIN throughout the shift. CIWA's q4H were 1 and 0. IV in left AC SL C/D/I, and wrapped per Pts request for comfort. Pt had a large dinner followed with multiple snacks. Pt stated feeling gassy and had a slight BM in his brief before making it to the toilet. Pt's walked multiple times throughout the hallways during shift. Pt stated relief in passing gas during activity. Pt is continent of the bladder. [employer]or encouraged Pt to increase water intake and not just diet mountain dew. Pt appears resting with lights off and call light in reach.
[2024-02-09 03:15] VITALS: BP 158/99; PULSE 78; RESP 16; TEMP 36.8; O2SAT 98
[2024-02-09 06:28] LABS: Hematocrit 27.5 % (37.0-53.0); Hemoglobin* 9.5 gm/dL (13.5-17.5); Mean Corpuscular HGB Conc 35 gm/dL (32-36); Mean Corpuscular Hemoglobin 35 pg (26-34); Mean Corpuscular Volume 102 fL (80-100); Platelet Count* 84 K/uL (140-440); Red Blood Count 2.69 m/uL (4.30-5.90); White Blood Count* 3.84 K/uL (4.50-11.00)
--- NOTE | 2024-02-09 06:28 | PC.NURSE ---
END OF SHIFT NOTE: PT PLEASANT, A&O. DENIES CP, SOB, N/V. AMBULATES INDEPENDENTLY. VSS ON RA; AFEBRILE. TELE READS NSR. PT SLEPT WELL DURING HS. CIWA SCORES THIS SHIFT 0, 0. CALL LIGHT WITHIN PT?S REACH.
[2024-02-09 06:30] LABS: Slide Review Reflex No
[2024-02-09 06:43] LABS: Chloride* 103 mmol/L (96-114)
[2024-02-09 06:44] LABS: Albumin* 3.6 g/dL (3.3-5.0); Potassium* 3.5 mmol/L (3.6-5.1); Sodium* 136 mmol/L (135-149)
[2024-02-09 06:47] LABS: Alanine Aminotransferase* 35 U/L (4-50); Alkaline Phosphatase* 88 U/L (40-150); Anion Gap 4 mEq/L (7-15); Aspartate Amino Transferase* 66 U/L (12-35); Bilirubin Total* 1.3 mg/dL (0.1-1.5); Blood Urea Nitrogen* 6 mg/dL (7-30); Carbon Dioxide* 29 mmol/L (20-32); Creatinine* 0.8 mg/dL (0.5-1.5); Est. Creatinine Clearance* 76.59; Estimated Glomerular Filt Rate 100 ml/min; Glucose* 134 mg/dL (60-115); Total Protein* 6.1 g/dL (6.0-8.3)
[2024-02-09 06:48] LABS: Calcium* 8.4 mg/dL (8.4-10.6); Magnesium* 1.4 mg/dL (1.5-2.6)
[2024-02-09 07:15] VITALS: PULSE 71
[2024-02-09] MEDS: POTASSIUM CHLORIDE 10 MEQ CAPSULE ER 20 MEQ PO (08:04)
[2024-02-09] MEDS: MAGNESIUM IV 2 GM/50 ML PIGGYBACK IVPB (08:04)
[2024-02-09] MEDS: 0.9 % SODIUM CHLORIDE 250 ml IV (08:05)
[2024-02-09 08:11] VITALS: BP 160/105; PULSE 87; TEMP 36.4; O2SAT 100
[2024-02-09] MEDS: SODIUM CHLORIDE 0.9 % (FLUSH) 10 ML SYRINGE 5 ML IVF (09:33)
[2024-02-09] MEDS: MULTIVITAMIN/MINERALS 1 TABLET 1 TAB PO (09:33)
[2024-02-09] MEDS: GABAPENTIN 300 MG CAPSULE PO (09:33)
[2024-02-09] MEDS: PANTOPRAZOLE SODIUM 40 MG INJ IVP (09:33)
[2024-02-09] MEDS: FOLIC ACID 1 MG TABLET PO (09:33)
[2024-02-09] MEDS: AMLODIPINE 5 MG TABLET PO (09:33)
--- NOTE | 2024-02-09 11:40 | P.DS_ITS ---
DS: Providers Provider Date Seen: 02/09/24 Date of admission: 02/07/24 16:13 Primary care physician: Preethi Armenta PA-C Admitting Clinician: Keisha Kaur MD Consults: 02/07/24 15:53 Consult to Occupational Therapy [CONS] Routine Comment: Reason(s) for OT Consult:: Difficulty Managing ADLs Any Restrictions?:: See Comment Comment: recent falls at home Consult to Physical Therapy [CONS] Routine Comment: Reason(s) for PT Consult:: Unstable Gait Any Restrictions?:: No Restrictions 02/07/24 17:13 Consult to Paving Block Cutter [CONS] Routine Comment: Reason for Consult:: Discharge Planning Needs Substance Abuse Screening Attending Physician on discharge: MECCA Landaverde, MARTH[facility] Date of Discharge: 02/09/24 DS: Diagnosis Discharge Diagnosis (1) Alcohol withdrawal: Status: Acute Problem details: -Tremors, heart rate elevated at 110s. Lactic acid elevated at 7.7 -IVF: Status post 2 L of fluids in the ED, will continue maintenance. NS at a rate of 125 mL/hour -Thiamine, folate ordered -CIWA ordered -PPI -Electrolytes replacement -history of withdrawal seizures, needs seizures precautions Has remained vitally stable, tachycardia resolved, lactic acid improved to 1.6. CIWA scores have been 8-4-4, improved to 0 prior to discharge. Continue oral thiamine, folic acid, MVI upon discharge. (2) Alcoholic hepatitis: Status: Acute Problem details: -elevated LFTs, elevated direct bilirubin upon admission, down trending prior to discharge. Total bilirubin 1.3, AST 66, ALT 35 -Maddrey score low at this time. 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 Severe fibrosis/cirrhosis scores may need liver biopsy for confirmation of cirrhosis unless there are other clinical or imaging signs of progression to end-stage liver disease. PCP for ongoing evaluation and management. (4) Alcohol abuse: Status: Acute Problem details: - consulted social and human services assistant, to help with resources and finding a facility for rehab to pursue following discharge (5) Diabetes: Status: Chronic Problem details: -started a low insulin sliding scale -patient is not taking medications at home (6) Hypertension: Status: Chronic Problem details: -patient is not taking medications at home (7) Ascending aortic aneurysm: Status: Acute Problem details: - a previous ECHO: dilation of the ascending aorta, 4.6 cm - seen by a manager games and needs outpatient follow-up (8) Lactic acidosis: Status: Resolved Problem details: -resolved status post IV fluids - resolved (9) Malnutrition: Status: Acute Problem details: In setting of chronic alcohol use. Nutrition consulted (10) Noncompliance with medication regimen: Status: Acute Problem details: Counseled on taking medications (11) Hypomagnesemia: Status: Acute Problem details: Magnesium 1.4, replace with 2 g IV x2 (12) Hypokalemia: Status: Acute Problem details: Potassium 3.1, previously 3.5. Replace with oral supplement. Recommend increasing dietary sources as noncompliant with medications DS: Summary Hospital Course Hospital Course: [age] year old male was admitted to the CCU for management alcohol withdrawal. Course of care and details as noted above. Recommend close outpatient follow-up with PCP. Concern for noncompliance with medications. Recommending further workup for liver fibrosis/cirrhosis. Will need outpatient cardiology follow-up for aortic aneurysm. immigration services officer provided resources for outpatient management. Remainder of chronic medical comorbidities were monitored and managed with home medications. Status at Discharge Functional status at discharge: independent ambulation Overall status at discharge: patient is back to baseline Time Spent with Patient Time attestation: Total time spent providing and/or coordinating discharge services: Time spent: Greater than 30 minutes Exam Narrative: Exam Narrative: PHYSICAL EXAM General: Pleasant, conversant, NAD Cardiovascular: RRR Pulmonary: No dyspnea Neurological: Alert, answering questions appropriately Skin: Warm, dry. Const: Vital Signs, click to edit/add: Vital Signs - 24 hr 02/08/24 15:00 02/08/24 15:00 02/08/24 19:00 Temperature 98.9 F 97.9 F Pulse Rate 91 Pulse Rate [Pulse Oximeter] 96 86 Respiratory Rate 16 18 Blood Pressure [Le ft Arm] Blood Pressure [Ri ght Arm] 152/97 H 137/84 Pulse Oximetry 100 100 Oxygen Delivery Me thod Room Air Room Air 02/08/24 23:38 02/08/24 23:40 02/08/24 23:40 Temperature 98.6 F Pulse Rate 83 Pulse Rate [Pulse Oximeter] 73 73 Respiratory Rate 16 16 Blood Pressure [Le ft Arm] 144/82 H Blood Pressure [Ri ght Arm] Pulse Oximetry 98 Oxygen Delivery Me thod Room Air 02/08/24 23:40 02/09/24 03:15 02/09/24 03:15 Temperature 98.6 F 98.3 F 98.3 F Pulse Rate Pulse Rate [Pulse Oximeter] 73 78 78 Respiratory Rate 16 16 16 Blood Pressure [Le ft Arm] 144/82 H Blood Pressure [Ri ght Arm] 158/99 H 158/99 H Pulse Oximetry 98 98 98 Oxygen Delivery Me thod Room Air Room Air Room Air 02/09/24 07:15 02/09/24 08:11 Temperature 97.6 F Pulse Rate 71 Pulse Rate [Pulse Oximeter] 87 Respiratory Rate Blood Pressure [Le ft Arm] Blood Pressure [Ri ght Arm] 160/105 H Pulse Oximetry 100 Oxygen Delivery Me thod Room Air DS: Data Data Completed and Pending Completed studies during hospitalization: Procedures Detoxification Services for Substance Abuse Treatment (07/10/23) Labs on day of discharge: Labs from last 24 hours 02/09/24 06:07 WBC 3.84 L RBC 2.69 L Hgb 9.5 L Hct 27.5 L MCV 102 H MCH 35 H MCHC 35 Plt Count 84 L Sodium 136 Potassium 3.5 L Chloride 103 Carbon Dioxide 29 Anion Gap 4 L BUN 6 L Creatinine 0.8 Estimated Creat Clear 76.59 Estimated GFR 100 Glucose 134 H Calcium 8.4 Magnesium 1.4 L Total Bilirubin 1.3 AST 66 H ALT 35 Alkaline Phosphatase 88 Total Protein 6.[address] scan - head: Attestation: I have reviewed the pertinent imaging results. Radiologist's impression: Parenchyma: No acute hemorrhage, infarction, or mass. Mild scattered periventricular white matter hypoattenuation is nonspecific and is favored to represent chronic small vessel ischemic disease. Ventricles and extra-axial spaces: Mild involutional changes. Visualized paranasal sinuses: Clear. Mastoid air cells: Clear. Bones: No focal abnormality. Additional comment: [id number] right frontal scalp hematoma. IMPRESSION: No acute intracranial abnormality. Chest x-ray: Attestation: I have reviewed the pertinent imaging results. Radiologist's impression: FINDINGS: THERE IS NO DENSE INFILTRATE. NO PULMONARY EDEMA OR PLEURAL EFFUSION . NO FRACTURE. CARDIAC SILHOUETTE IS UNREMARKABLE WITH THE EXCEPTION OF MILD VASCULAR TORTUOSITY. ARTIFACT OVERLIES THE RIGHT UPPER HEMITHORAX. Discharge Plan Discharge Disposition: Home, Self-Care Date of Admission: 02/07/24 16:13 Attending Provider on Discharge: Sasha Parks Primary Care Provider: Preethi Armenta Condition: Improved Anticipated Discharge Date/Time: 02/09/24 10:33 Discharge Medications: New folic acid 1 mg Tablet 1 mg PO DAILY Qty: 30 0RF thiamine mononitrate (vit B1) [Vitamin B-1 (mononitrate)] 100 mg Tablet 100 mg PO Q24H Qty: 30 0RF Continued losartan 100 mg tablet 100 mg PO DAILY metformin 500 mg tablet extended release 24 hr 500 mg PO BIDWM acetaminophen 325 mg tablet 650 mg PO Q4H PRN amlodipine 5 mg tablet 5 mg PO DAILY azelastine 137 mcg (0.1 %) spray,non-aerosol 1 spray intranasal BID Rx Instructions: administer into each nostril gabapentin 300 mg capsule 300 mg PO DAILY gabapentin 300 mg capsule 600 mg PO HS omeprazole 40 mg capsule,delayed release(DR/EC) 40 mg PO DAILY pravastatin 10 mg tablet 10 mg PO HS Discharge Orders: Discharge Order (Routine); Ordered 02/09/24 Ordered By: Sasha Parks Patient Education: Alcohol Withdrawal (GEN) Additional Instructions: It is important you follow-up with your PCP following your hospital stay. Recheck BMP, liver functions. Ongoing medication management/compliance. It is recommended you have further outpatient workup for liver fibrosis/cirrhosis. Outpatient follow-up with Cardiology for history of ascending aortic aneurysm. Increase potassium sources in your diet. Supplement with a daily multivitamin, continue daily folic acid and daily thiamine. Activity Level: No Restrictions Discharge Diet: Diabetic Follow Up Appointments: Preethi Armenta PA-C [Primary Care Provider] - 02/14/24 11:35 am ([facility] for follow-up, and repeat BMP, medication management/compliance) Provider,Not a Local [Non-Staff] - Forms: [employer]ward Info Instructions
[2024-02-09] MEDS: INSULIN ASPART 100 UNIT/ML SUBCUT (11:48)
--- NOTE | 2024-02-09 13:15 | PC.NURSE ---
Shift Summary: patient pleasant and cooperative. Up independently, frequently up in halls. Denies pain. CIWAs 0. IV removed with catheter intact. Vitals stable, tolerating regular diet. 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
== END 2024-02-09 12:43 | disposition home or self-care (01) | DRG 897 ==
LOC: ED 13:56 → MEDSURG 14:50
PROVIDERS: Physician Assistant; Admitting Provider Student in an Organized Health Care Education/Training Program; Emergency Provider Family Medicine; PCP Student in an Organized Health Care Education/Training Program; Visit Provider Student in an Organized Health Care Education/Training Program
DX: F10.239 Alcohol dependence with withdrawal, unspecified (principal); E87.20 Acidosis, unspecified; K70.10 Alcoholic hepatitis without ascites; K70.2 Alcoholic fibrosis and sclerosis of liver; R00.0 Tachycardia, unspecified; R25.1 Tremor, unspecified; E83.42 Hypomagnesemia; E87.6 Hypokalemia; E11.9 Type 2 diabetes mellitus without complications; I10 Essential (primary) hypertension; Z91.148 Patient's other noncompliance with medication regimen for other reason; I71.21 Aneurysm of the ascending aorta, without rupture; F32.A Depression, unspecified; I44.0 Atrioventricular block, first degree; S00.83XA Contusion of other part of head, initial encounter; F10.288 Alcohol dependence with other alcohol-induced disorder
CPT/HCPCS: 36415; 70450; 80053; 82077; 82140; 82248; 82962; 83605; 83690; 83735; 84484; 85025; 85027; 85610; 85730; 93005; 94761; 97112; 97116; 97161; 97165; 99285; A9153; A9270; J1650; J2060; J2470; J2560; J3411; J3475; J7030; J7050

== ENCOUNTER 2024-02-26 11:10 | Observation (INO) | payer MEDICAID, SELFPAY ==
[2024-02-26] VITALS (34 sets, daily range): BP systolic 152–183; BP diastolic 88–102; PULSE 77–105; RESP 18–20; TEMP 36.7–37.3; O2SAT 92–100; BMI 24.4
--- NOTE | 2024-02-26 12:12 | CRLHL7_ITS ---
For Patients: As a result of the Century Cures Act, medical imaging exams and procedure reports are released immediately into your electronic medical record. You may view this report before your referring provider. If you have questions, please contact your health care provider. INDICATION: FALL 02/25/24, NAUSEA TECHNIQUE: CT of the head was performed without IV contrast. COMPARISON: 02/07/2024. FINDINGS: The most cranial portion of the head was excluded from the field of view. Parenchyma: No acute hemorrhage, infarction, or mass. Mild scattered periventricular white matter hypoattenuation is nonspecific and is favored to represent chronic small vessel ischemic disease. Ventricles and extra-axial spaces: Mild involutional changes. Visualized paranasal sinuses: Clear. Mastoid air cells: Clear. Bones: No focal abnormality. Additional comment: Mild soft tissue swelling along the frontal scalp. IMPRESSION: No acute intracranial abnormality. Please note that all CT scans at this facility use dose modulation, iterative reconstruction, and/or weight-based dosing when appropriate to reduce radiation dose to as low as reasonably achievable. Dictated by Danny Miller MD @ 02/26/2024 1:21:37 PM (Electronically Signed)
--- NOTE | 2024-02-26 13:05 | ED_ITS ---
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 Symptoms began in the middle of the night last night. He has had some nasal congestion and sinus drainage. He also fell yesterday in his driveway and thinks he may have his head, but he is not sure. He has a bump on the top of his scalp. He was seen here in the ER about 3 weeks ago on February 06 for nausea and vomiting with weakness. Per records he was brought in by his 2 brothers that on that day with concern for alcohol withdrawal. He has a history of alcohol withdrawal seizures. Admitted to the hospital for alcohol withdrawal, weakness, electrolyte disturbances. Admitted for alcohol withdrawal. Discharged on the . Patient reports that he has not been drinking much since discharge. He says he only drinks perhaps over the day or so. He however has a little bit vague and seems unreliable in his report. He says that he did get ?his friend? who is a local television cable installer to go to the liquor store for him yesterday and got him a bottle of some beverage. He says it was 16% alcohol by volume. He drank it but did not drink otherwise heavily. He is currently living with his mother. He does not have any alcohol in the home, he says. He says his car does not work and that the battery is . However yesterday he was out in his car. He says he goes out there ?to get away from my mother?. When he was getting out of his car he became very unsteady. He fell forward. He suffered an abrasion to the top of his scalp. He is not sure how he scraped his scalp but he wonders if he might have scraped against the car door when he was getting help. Apparently his neighbors saw him fall in the driveway. His neighbor came over to help him up. He ultimately declined his neighbors assistance and decided to crawl back into his house just to go to sleep on his couch. He says that he gets episodes of vertigo typically in the fall and spring and a related to something or dust in the air that causes stuffy nose. He has had nasal congestion and a m ild cough for a couple of days. No fever. Since falling yesterday he has had a mild headache. He is mildly nauseous. He also complains of pain in the dorsum of his right lateral neck and the top the trapezius. No pain radiating down his right arm. No numbness or weakness in his arms. He also has superficial abrasions on his left elbow, left finger knuckle, left knee, right knee. He does not think his elbows or knees are broken. He was not able to walk since yesterday. He says he has been having to lean against the wall or hold onto things to walk around the house. Since he was not able to walk well he asked his mother to bring him to the ER today. Related Data Home Medications ?Medication ?Instructions ?Recorded ?Confirmed losartan 100 mg tablet 100 mg PO DAILY 07/11/23 02/07/24 acetaminophen 325 mg tablet 650 mg PO Q4H PRN 02/07/24 02/07/24 amlodipine 5 mg tablet 5 mg PO DAILY 02/07/24 02/07/24 azelastine 137 mcg (0.1 %) nasal 1 spray intranasal BID 02/07/24 02/07/24 spray gabapentin 300 mg capsule 300 mg PO DAILY 02/07/24 02/07/24 gabapentin 300 mg capsule 600 mg PO HS 02/07/24 02/07/24 metformin 500 mg tablet,extended 500 mg PO BIDWM 02/07/24 02/07/24 release 24 hr omeprazole 40 mg capsule,delayed 40 mg PO DAILY 02/07/24 02/07/24 release pravastatin 10 mg tablet 10 mg PO HS 02/07/24 02/07/24 Previous Rx's ?Medication ?Instructions ?Recorded folic acid 1 mg tablet 1 mg PO DAILY #30 tabs 02/09/24 thiamine mononitrate (vit B1) 100 100 mg PO Q24H #30 tabs 02/09/24 mg tablet (Vitamin B-1 (mononitrate)) Allergies Allergy/AdvReac Type Severity Reaction Status Date / Time Penicillins Allergy Unknown Verified 02/26/24 14:09 [facility] Medical History (Updated 02/26/24 @ 18:32 by John Salmon MD) Chronic rhinitis ?J31.0 - Chronic rhinitis (ICD-10) Lactic acidosis ?E87.20 - Acidosis, unspecified (ICD-10) 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 ?K70.2 - Alcoholic fibrosis and sclerosis of liver (ICD-10) Noncompliance with medication regimen ?Z91.148 - Patient's other noncompliance with medication regimen for other reason (ICD-10) Medication noncompliance due to cognitive impairment ?R41.9 - Unspecified symptoms and signs involving cognitive functions and awareness (ICD-10) ?Z91.148 - Patient's other noncompliance with medication regimen for other reason (ICD-10) Malnutrition ?E46 - Unspecified protein-calorie malnutrition (ICD-10) Ascending aortic aneurysm ?I71.21 - Aneurysm of the ascending aorta, without rupture (ICD-10) History of pancreatitis ?Z87.19 - Personal history of other diseases of the digestive system (ICD-10) Hypertension ?I10 - Essential (primary) hypertension (ICD-10) Diabetes ?E11.9 - Type 2 diabetes mellitus without complications (ICD-10) Depression ?F32.A - Depression, unspecified (ICD-10) Diabetes type 2, controlled ?E11.9 - Type 2 diabetes mellitus without complications (ICD-10) Surgical History Hx of nasal septoplasty ?Z98.890 - Other specified postprocedural states (ICD-10) S/P ACL repair ?Z98.890 - Other specified postprocedural states (ICD-10) H/O hernia repair ?Z98.890 - Other specified postprocedural states (ICD-10) ?Z87.19 - Personal history of other diseases of the digestive system (ICD-10) H/O stapedectomy ?Z90.09 - Acquired absence of other part of head and neck (ICD-10) Social History (Updated 02/26/24 @ 18:16 by John Salmon MD) Narrative: Currently living with mother in [place]. Brother Des MICHAEL in [place], [place]) would be medical decision maker if needed. History of alcohol abuse. Reports minimal non-problematic drinking currently. Requests Full Code status. What is your current living situation?: I have a place to live at present, but am concerned about future Problems where you live: no known problems Problems where you live details: pt lives in basement of mothers home In the past 12 months, utilities in danger of being shut off: no In past 12 months, lack of transportation kept you from medical appts, meetings, work, or getting things needed for daily living: declined to answer In the past 12 mos, have been you worried that your food would run out before you had money to buy more?: never true In the past 12 mos, the food you bought just didn't last and you didn't have money to buy more?: never true Highest level of school completed/degree received: Bachelor's degree Smoking Status: Smoker, status unknown Do you use any of these nicotine containing products: Smokeless Tobacco Nicotine containing products detail: chew How often do you have a drink containing alcohol: 4 or more times a week Alcohol type: hard liquor Alcohol type details: pt drinks a 5th of whisky daily How many standard drinks containing alcohol do you have on a typical day: 5 or 6 How often do you have six or more drinks on one occasion: Daily or almost daily AUDIT-C Alcohol total score: 10 Non-prescribed substance use: denies use Caffeine: No How often does anyone, including family, friends and others, physically hurt you : never How often does anyone, including family, friends and others, insult or talk down to you: never How often does anyone, including family, friends and others, threaten you with harm: never How often does anyone, including family, friends and others, scream or curse at you: never service: No Exam Narrative: Exam Narrative: Constitutional: Appears well-developed and well-nourished. Alert. Conversant, but vague historian. Mildly tremulous. HENT: Head: 2 superficial abrasions on the central vertex of the scalp. No depressed skull fracture, Raccoon Eyes, Pichardo's sign, or hemotympanum. Face normal. TMs normal Nose: Nose normal. Mouth/Throat: Oral mucosa is clear and moist. no trismus. Pharynx normal. Tonsils symmetric. No tonsillar enlargement, erythema, or exudate. Eyes: Conjunctivae normal. EOM normal. Pupils equal, round, and reactive to light. No scleral icterus. No nystagmus Neck: Normal range of motion. Neck supple. No tracheal deviation present. He is tender over the right trapezius muscle and right lateral paraspinous muscles. No bony midline tenderness. However range of motion is limited by his right lateral neck pain. Cardiovascular: Normal rate, regular rhythm. No gallop. No friction rub. No murmur heard. Symmetric radial and PT artery pulses Pulmonary/Chest: Effort normal. No stridor. No respiratory distress. No wheezes. No rales. No rhonchi . No tenderness. Abdominal: Soft. Bowel sounds normal. No distension. No mass. No tenderness. No rebound. No guarding. No HSM. No CVA tenderness. Musculoskeletal: No T or L-spine tenderness. Pelvis is stable per RUE: Normal range of motion. No tenderness. No deformity LUE: Normal range of motion. No tenderness. No deformity RLE: Normal range of motion. No edema. No tenderness. No deformity LLE: Normal range of motion. No edema. No tenderness. No deformity Neurological: Mental status normal. Attention normal. Alert and oriented x3. GCS 15. Memory normal. Speech fluent. Cognition normal. Cranial Nerves intact II-XII except I did not formally test gag or visual acuity. EOMI. Palate elevates symmetrically and tongue protrudes in the midline. Strength: 5/5 trapezius on the right and left 5/5 deltoid on the right and left 5/5 biceps on the right and left 5/5 triceps on the right and left 5/5 rn office on the right and left 5/5 thumb opposition on the right and le ft 5/5 finger abduction on the right and le ft 5/5 hip flexors (L3) on the right and le ft 5/5 quadriceps (L4) on the right and lef t 5/5 tibialis anterior on the right and l eft 5/5 EHL (L5) on the right and left 5/5 gastrocnemius (S1) on the right and left 5/5 hamstring on the right and left Sensation intact to light touch in both upper extremities (C4-T1) Sensation intact to light touch in Both lower extremities (L4-S1). Finger to nose and coordination normal. Is very slow, wide-based, shuffling. He has hold onto the bed, the railing, or the wall for balance. He is able to walk about 10 steps in his room. No footdrop or unilateral weakness Skin: Skin is warm and dry. No rash noted. No pallor. Normal capillary refill. Psychiatric: Normal mood. Normal affect. Family have concerns about significant ongoing alcohol abuse. For his part the patient denies that and says that he only has sporadic use since he was discharged from the hospital. The patient does not think he has a problem with alcohol. He does not want to go to treatment. He says he has been through treatment 3 times and that it does not help. He says ?you just sit there and get 3 meals a day. Maybe you go to some groups. It does not help. ? He is not really showing signs of acute alcohol intoxication today but he is mildly tremulous and concerned about possible mild or early withdrawal. In discussion by phone with his brother, brother expresses concern for ongoing use. His brother would like us to contact him by phone before the patient is discharged from the hospital so that the patient's brothers can assist him in getting into a long-term alcohol treatment program. Const: Vital Signs, click to edit/add: Vital Signs - 24 hr 02/26/24 12:03 02/26/24 12:59 02/26/24 13:00 Temperature 99.1 F Pulse Rate 96 94 Pulse Rate [Right Pulse Oximeter] 94 Respiratory Rate 20 Blood Pressure Blood Pressure [Ri ght Upper Arm] 183/98 H Pulse Oximetry 100 97 99 Oxygen Delivery Me od Room Air 02/26/24 13:15 02/26/24 13:30 02/26/24 13:53 Temperature Pulse Rate 99 100 95 Pulse Rate [Right Pulse Oximeter] Respiratory Rate Blood Pressure Blood Pressure [Ri ght Upper Arm] Pulse Oximetry 100 100 100 Oxygen Delivery Me thod 02/26/24 14:21 02/26/24 14:30 02/26/24 14:40 Temperature Pulse Rate 105 H 91 94 Pulse Rate [Right Pulse Oximeter] Respiratory Rate Blood Pressure 174/102 H Blood Pressure [Ri ght Upper Arm] Pulse Oximetry 100 100 99 Oxygen Delivery Me thod 02/26/24 14:45 02/26/24 15:00 02/26/24 15:03 Temperature Pulse Rate 104 H 102 H 93 Pulse Rate [Right Pulse Oximeter] Respiratory Rate Blood Pressure 174/95 H Blood Pressure [Ri ght Upper Arm] Pulse Oximetry 100 92 100 Oxygen Delivery Me thod 02/26/24 15:04 02/26/24 15:15 02/26/24 15:30 Temperature Pulse Rate 92 95 91 Pulse Rate [Right Pulse Oximeter] Respiratory Rate Blood Pressure Blood Pressure [Ri ght Upper Arm] Pulse Oximetry 100 97 100 Oxygen Delivery Me thod 02/26/24 15:32 02/26/24 15:45 02/26/24 16:00 Temperature Pulse Rate 90 100 91 Pulse Rate [Right Pulse Oximeter] Respiratory Rate Blood Pressure 162/88 H Blood Pressure [Ri ght Upper Arm] Pulse Oximetry 96 100 98 Oxygen Delivery Me thod 02/26/24 16:01 02/26/24 16:15 02/26/24 16:30 Temperature Pulse Rate 93 91 89 Pulse Rate [Right Pulse Oximeter] Respiratory Rate Blood Pressure 164/94 H Blood Pressure [Ri ght Upper Arm] Pulse Oximetry 96 100 97 Oxygen Delivery Me thod 02/26/24 16:32 02/26/24 16:45 02/26/24 17:04 Temperature Pulse Rate 95 95 91 Pulse Rate [Right Pulse Oximeter] Respiratory Rate Blood Pressure 155/93 H Blood Pressure [Ri ght Upper Arm] Pulse Oximetry 99 98 100 Oxygen Delivery Me thod 02/26/24 17:15 02/26/24 17:30 02/26/24 17:32 Temperature Pulse Rate 94 89 94 Pulse Rate [Right Pulse Oximeter] Respiratory Rate Blood Pressure 162/97 H Blood Pressure [Ri ght Upper Arm] Pulse Oximetry 100 97 97 Oxygen Delivery Me thod 02/26/24 17:45 Temperature Pulse Rate 95 Pulse Rate [Right Pulse Oximeter] Respiratory Rate Blood Pressure Blood Pressure [Ri ght Upper Arm] Pulse Oximetry 99 Oxygen Delivery Me thod Course Vital Signs Vital signs: Initial Vital Signs Temperature 99.1 F 02/26/24 12:03 Temperature Source Temporal Artery Scan 02/26/24 12:03 Pulse Rate 94 02/26/24 12:03 Pulse Rhythm Regular 02/26/24 12:03 Respiratory Rate 20 02/26/24 12:03 Blood Pressure 183/98 H 02/26/24 12:03 Blood Pressure Mean 126 H 02/26/24 12:03 Blood Pressure Position Sitting 02/26/24 12:03 Pulse Oximetry 100 02/26/24 12:03 Oxygen Delivery Method Room Air 02/26/24 12:03 Vital Signs Temperature 99.1 F 02/26/24 12:03 Pulse Rate 94 02/26/24 12:03 Respiratory Rate 20 02/26/24 12:03 Blood Pressure 183/98 H 02/26/24 12:03 Pulse Oximetry 100 02/26/24 12:03 Oxygen Delivery Method Room Air 02/26/24 12:03 Temperature 98.0 F 02/26/24 18:22 Pulse Rate 89 02/26/24 18:22 Respiratory Rate 18 02/26/24 18:22 Blood Pressure 160/98 H 02/26/24 18:22 Pulse Oximetry 98 02/26/24 18:22 Oxygen Delivery Method Room Air 02/26/24 18:22 Medications Administered Medications: Discontinued Medications Generic Name Dose Route Start Last Admin Trade Name Freq PRN Reason Stop Dose Admin Hydrocodone Bitart/Acetaminophen 1 tab 02/26/24 16:40 02/26/24 17:03 Hydrocodone-Acetamin 5-325 Mg 1 Tab PO 02/26/24 16:41 1 tab ONCE ONE Administration Folic Acid 1 mg/ Multivitamins 1,011.2 mls @ 1,000 mls/hr 02/26/24 13:29 02/26/24 15:35 10 ml/ Thiamine HCl 100 mg/ IV 02/26/24 14:29 Infused Sodium Chloride .Q1H1M BLANCA Infusion Ketorolac Tromethamine 15 mg 02/26/24 13:29 02/26/24 13:40 Ketorolac 15 Mg/Ml Inj IVP 02/26/24 13:30 15 mg ONCE ONE Administration Meclizine HCl 25 mg 02/26/24 13:30 02/26/24 13:46 Meclizine Hcl 25 Mg Tablet PO 02/26/24 13:31 25 mg ONCE ONE Administration Ondansetron HCl 4 mg 02/26/24 13:29 02/26/24 13:45 Ondansetron 2 Mg/Ml Inj IVP 02/26/24 13:30 4 mg ONCE ONE Administration Medical Decision Making MDM Narrative Medical decision making narrative: 1. Trauma. Patient does have an abrasion at the vertex of his scalp. No palpable scalp hematoma. Head CT shows no acute intracranial bleed or skull fracture. CT C-spine is negative for any acute injury. 2. Neuro. Patient is complaining of vertigo which he thinks is triggered by exposure to dust in the air. However he does have fairly significant vertigo that caused him to fall yesterday and has made it difficult for him to walk since then. He has been hanging on to leblanc since yesterday afternoon. Consider possible acute stroke. Head CT negative for bleed. Would need MRI for further evaluation. CT angiogram of his head and neck to look for possible vertebral artery dissection or other cause for vertigo shows no acute LV 0, or vertebral artery dissection or other vascular abnormality. Even after IV fluids, the patient has ataxia with a wide-based shuffling gait. Concern here would be for possible cerebellar infarct that would have occurred yesterday when he fell. He would be outside the window for IV or IA intervention. If he does not improve may need brain MRI to look for possible abnormality. Differential would also include alcohol intoxication although alcohol level is negative today. Also consider alcohol drawl. Also consider possible Wernicke's syndrome or cerebellar ataxia from alcohol abuse. 3. Alcohol abuse. Patient has a history of alcohol abuse with recent hospitalization for alcohol withdrawal. He does have mild sinus tachycardia and tremulousness here which would suggest possible early withdrawal again. However he denies any heavy alcohol intake lately. He did have ?1 bottle? of a 18% alcohol by volume liquor yesterday. But he says he only drinks about every oth er day. I am not sure the patient is a reliable and forthright historian about that. Alcohol level is negative today. 4. Renal/electrolytes. Creatinine normal. Border hypokalemia with potassium of 3.5. Magnesium low at 1.4. 5. Hepatic. Has a history of liver fibrosis from alcohol abuse. AST today is 88. ALT is 43. Total bilirubin normal at 1.5. Liver labs actually look slightly better than today he was hospitalized on February 06 No abdominal pain to suggest ascites or SBP. 6. He also has recent nasal congestion without cough.. COVID negative. Possibly due to allergies. 7. Heme. He is anemic.. Hemoglobin 11.4 similar to when he came into the hospital on May 08 but actually up about 2 g friend he was discharged on the . Suspect this is probably due to dehydration. 8. Social. The patient's family, by phone, report a concern for ongoing heavy alcohol use. The patient denies this to me. I am not sure that the patient is reliable historian. The patient's brother requests a phone call before the patient is discharged so they can help coordinate with social work. They think they might be able to get him into adult teen challenge which might help him a chieve or maintain sobriety. Lab Data Labs: Lab Results 02/26/24 02/26/24 Range/Units 13:50 15:04 WBC 5.71 (4.50-11.00) K/uL RBC 3.23 L (4.30-5.90) m/uL Hgb 11.4 L (13.5-17.5) gm/dL Hct 32.9 L (37.0-53.0) % MCV 102 H (80-100) fL MCH 35 H (26-34) pg MCHC 35 (32-36) gm/dL RDW Coeff of Justin 13.4 (11.5-15.5) % Plt Count 210 (140-440) K/uL Neut % (Auto) 62.1 (42.0-72.0) % Lymph % (Auto) 29.1 (20-44) % [place] % (Auto) 7.9 (0.0-11.0) % Eos % (Auto) 0.2 (0.0-7.0) % Baso % (Auto) 0.5 (0.0-3.0) % Neut # (Auto) 3.55 (1.7-7.0) K/uL Lymph # (Auto) 1.66 (0.90-2.90) K/uL [place] # (Auto) 0.50 (0.00-0.90) K/UL Eos # (Auto) 0.01 (0.00-0.50) K/uL Baso # (Auto) 0.03 (0.00-0.30) K/uL Abs Immat Gran (auto) 0.01 (0.00-0.30) K/uL Imm/Tot Granulo (auto) 0.2 % Sodium 137 (135-149) mmol/L Potassium 3.5 L (3.6-5.1) mmol/L Chloride 99 (96-114) mmol/L Carbon Dioxide 26 (20-32) mmol/L Anion Gap 12 (7-15) mEq/L BUN 15 (7-30) mg/dL Creatinine 0.9 (0.5-1.5) mg/dL Estimated Creat Clear 76.59 Estimated GFR 97 ml/min Glucose 146 H (60-115) mg/dL Lactate 2.1 H (0.5-1.9) mmol/L Calcium 9.4 (8.4-10.6) mg/dL Magnesium 1.4 L (1.5-2.6) mg/dL Total Bilirubin 1.5 (0.1-1.5) mg/dL AST 88 H (12-35) U/L ALT 43 (4-50) U/L Alkaline Phosphatase 107 (40-150) U/L Troponin I < 0.01 L (0.01-0.04) ng/mL Total Protein 8.1 (6.0-8.3) g/dL Albumin 4.9 (3.3-5.0) g/dL Lipase 11 L (23-300) U/L Urine Color Yellow (Yellow) Urine Appearance Clear (Clear) Urine pH 8.5 (5.0-8.5) Ur Specific [place] 1.015 (1.000-1.030) Urine Protein Negative (Negative) Urine Glucose (UA) Negative (Negative) Urine Ketones Negative (Negative) Urine Blood Trace-intact A (Negative) Urine Nitrite Negative (Negative) Urine Bilirubin Negative (Negative) Urine Urobilinogen 0.2 (0.2-1.0) Ur Leukocyte Esterase Negative (Negative) Urine RBC 0-2 (0-2) Urine WBC 0-2 (0-5) Ur Squamous Epith Cells None (None-Few) Urine Bacteria None (None) Ethyl Alcohol < 0.01 L (0.01-0.03) % SARS-CoV-2 (PCR) Negative SARS-CoV-2 (Negative) Influenza Type A (PCR) Negative PCR FLU A (Negative) Influenza Type B (PCR) Negative PCR FLU B (Negative) Imaging Data CT scan - head: Attestation: I have reviewed the pertinent imaging results. Radiologist's impression: IMPRESSION: No acute intracranial abnormality. Please note that all CT scans at this facility use dose modulation, iterative reconstruction, and/or weight-based dosing when appropriate to reduce radiation dose to as low as reasonably achievable. CT C spine: Attestation: I have reviewed the pertinent imaging results. Radiologist's impression: FINDINGS: Alignment: Grade 1 anterolisthesis of C2 on C3. Otherwise no significant spondylolisthesis, widening of the intervertebral disc spaces, interfacetal joints or interspinous distances. Vertebrae: Vertebral bodies, pedicles, laminae, articular, transverse and spinous processes are intact. Moderate to severe C3-C4 C6-C7 and moderate C4-C5, C5-C6 and C7-T1 disc degeneration. 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 Soft Tissues: No perivertebral edema or hemorrhage. Extraspinal Anatomy: No significant findings. IMPRESSION: No acute traumatic injury is identified. Incidental findings described in the body of the report. CTA neck: Attestation: I have reviewed the pertinent imaging results. Radiologist's impression: PRELIMINARY FINDINGS: 1. No occlusion or significant stenosis of the cervical carotid or vertebral arteries. No sign of cervical carotid or vertebral dissection. 2. No intracranial large vessel occlusion. CTA intracrania: Attestation: I have reviewed the pertinent imaging results. Radiologist's impression: PRELIMINARY FINDINGS: 1. No occlusion or significant stenosis of the cervical carotid or vertebral arteries. No sign of cervical carotid or vertebral dissection. 2. No intracranial large vessel occlusion. ECG Data Attestation: I personally reviewed and interpreted this ECG as follows: Interpretation: Normal sinus rhythm Rate: 95 IL: 214. First degree AV block QRS axis: Normal axis. ST segment/T wave: Q-waves in leads V1 and V2. No ST segment elevation or depression. QTc: 462 Discharge Plan Discharge Clinical Impression: Ataxia, Fall, Head injury, Acute neck pain, Vertigo, Tremor Patient Disposition: Admitted As Observation Condition: Guarded
--- NOTE | 2024-02-26 13:26 | CRLHL7_ITS ---
For Patients: As a result of the Century Cures Act, medical imaging exams and procedure reports are released immediately into your electronic medical record. You may view this report before your referring provider. If you have questions, please contact your health care provider. INDICATION: Fall. Neck pain, not otherwise described. COMPARISON: None available. TECHNIQUE: CT of the cervical spine without intravenous contrast. Please note that all CT scans at this facility use dose modulation, iterative reconstruction, and/or weight-based dosing when appropriate to reduce radiation dose to as low as reasonably achievable. FINDINGS: Alignment: Grade 1 anterolisthesis of C2 on C3. Otherwise no significant spondylolisthesis, widening of the intervertebral disc spaces, interfacetal joints or interspinous distances. Vertebrae: Vertebral bodies, pedicles, laminae, articular, transverse and spinous processes are intact. Moderate to severe C3-C4 C6-C7 and moderate C4-C5, C5-C6 and C7-T1 disc degeneration. 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 Soft Tissues: No perivertebral edema or hemorrhage. Extraspinal Anatomy: No significant findings. IMPRESSION: No acute traumatic injury is identified. Incidental findings described in the body of the report. Please note that all CT scans at this facility use dose modulation, iterative reconstruction, and/or weight-based dosing when appropriate to reduce radiation dose to as low as reasonably achievable. Dictated by Kirk Manzo MD @ 02/26/2024 2:45:12 PM (Electronically Signed)
--- NOTE | 2024-02-26 13:27 | CT_ITS ---
Patient: THOMAS MADRID Facility:?[facility] RIS Patient ID:?[id number] Site Patient ID:?[id number]. Site :?[id number] Study:?CT-Neck Angio Angio 95CC ISOVUE 370 NON ACUTE-02/26/2024 2:27:40 PM Ordering Physician:Clint Pinto Final Report: INDICATION: Fall, neck pain, vertigo. TECHNIQUE: CTA neck with contrast bolus tracking, 3D angiographic rendering using maximum intensity projection (MIP) and images permanently archived. FINDINGS: There is carotid atherosclerosis. There is no significant carotid artery stenosis or dissection. There is no significant vertebral artery stenosis or dissection. The soft tissues of the neck are within normal limits. The cervical spine is in normal alignment. Degenerative changes are noted in the cervical spine. IMPRESSION: Carotid atherosclerosis without significant stenosis. Please note that all CT scans at this facility use dose modulation, iterative reconstruction, and/or weight-based dosing when appropriate to reduce radiation dose to as low as reasonably achievable. Dictated by Panfilo Pollock MD @ 02/26/2024 7:56:01 PM Signed by:?Panfilo Pollock MD @02/26/2024 7:56:01 PM (Electronic Signature)
[2024-02-26] MEDS: KETOROLAC 15 MG/ML inj IVP (13:40)
[2024-02-26] MEDS: ONDANSETRON 2 MG/ML inj 4 MG IVP (13:45)
[2024-02-26] MEDS: MECLIZINE HCL 25 MG TABLET PO (13:46)
[2024-02-26 14:00] LABS: Lactate* 2.1 mmol/L (0.5-1.9)
[2024-02-26 14:22] LABS: Albumin* 4.9 g/dL (3.3-5.0); Chloride* 99 mmol/L (96-114)
[2024-02-26 14:23] LABS: Potassium* 3.5 mmol/L (3.6-5.1); Sodium* 137 mmol/L (135-149)
[2024-02-26 14:24] LABS: Basophils Absolute Auto 0.03 K/uL (0.00-0.30); Basophils Percent Auto 0.5 % (0.0-3.0); Eosinophils Absolute Auto 0.01 K/uL (0.00-0.50); Eosinophils Percent Auto 0.2 % (0.0-7.0); Hematocrit 32.9 % (37.0-53.0); Hemoglobin* 11.4 gm/dL (13.5-17.5); Immature Granulocytes Abs Auto 0.01 K/uL (0.00-0.30); Immature Granulocytes Pct Auto 0.2 %; Lymphocytes Absolute Auto 1.66 K/uL (0.90-2.90); Lymphocytes Percent Auto 29.1 % (20-44); Mean Corpuscular HGB Conc 35 gm/dL (32-36); Mean Corpuscular Hemoglobin 35 pg (26-34); Mean Corpuscular Volume 102 fL (80-100); Monocytes Percent Auto 7.9 % (0.0-11.0); Neutrophils Absolute Auto 3.55 K/uL (1.7-7.0); Neutrophils Percent Auto 62.1 % (42.0-72.0); Platelet Count* 210 K/uL (140-440); RDW Coefficient of Variation % 13.4 % (11.5-15.5); Red Blood Count 3.23 m/uL (4.30-5.90); White Blood Count* 5.71 K/uL (4.50-11.00)
[2024-02-26 14:25] LABS: Anion Gap 12 mEq/L (7-15); Aspartate Amino Transferase* 88 U/L (12-35); Bilirubin Total* 1.5 mg/dL (0.1-1.5); Carbon Dioxide* 26 mmol/L (20-32); Creatinine* 0.9 mg/dL (0.5-1.5); Est. Creatinine Clearance* 76.59; Estimated Glomerular Filt Rate 97 ml/min; Total Protein* 8.1 g/dL (6.0-8.3)
[2024-02-26 14:26] LABS: Alanine Aminotransferase* 43 U/L (4-50); Alkaline Phosphatase* 107 U/L (40-150); Blood Urea Nitrogen* 15 mg/dL (7-30); Calcium* 9.4 mg/dL (8.4-10.6); Glucose* 146 mg/dL (60-115); Lipase* 11 U/L (23-300); Magnesium* 1.4 mg/dL (1.5-2.6)
[2024-02-26 14:27] LABS: Ethanol* < 0.01 % (0.01-0.03)
[2024-02-26 14:38] LABS: Slide Review Reflex No
[2024-02-26 14:40] LABS: Troponin I* < 0.01 ng/mL (0.01-0.04)
--- OUTSIDE RECORDS SUMMARY | 2024-02-26 14:40 | XMS_ITS | Clinical Summary ---
Author Organization [facility] Address [address] [place] [address] Care Team Providers Care Naval Gunfire Spotter Name Role Phone Manuel Whitney MD Primary Care Provider [phone] Source Comments You are receiving this document as you are listed as the primary care provider,follow-up provider, or the patient has been referred to you for consultation.This is in compliance with the Medicare andThe [facility] EHR Incentive Program,which states Providers who transition their patient to another setting of careor provider of care or refers their patient to another provider of care shouldprovide summary care record for each transition of care or referral. [facility] Active Allergy Reactions Criticality Noted Date Comments Dust Mite Extract Respiratory Distress High 09/09/19 21 Penicillins 09/18/2007 PN: LW Reaction: childhood Medications Medication Sig Dispensed Refills Start Date End Date Status Continuous Blood Gluc Sensor (FREESTYLE CHARLES 14 DAY SENSOR) MISC APPLY 1 SENSOR EVERY 14 DAYS DIRECTED 08/30/2020 Active BD PEN NEEDLE SAV 2ND GEN 32G X 4 MM USE AT BEDTIME 08/13/2020 Ac tive ondansetron (ZOFRAN-ODT) 4 MG disintegrating tablet TAKE 1 TO 2 TABLETS BY MOUTH EVERY 6 TO 8 HOURS NEEDED 03/02/2021 Active aspirin 81 MG chewable tabletIndications:Typ e 2 diabetes mellitus with peripheral neuropathy (HRC) Chew and swallow 1 Tablet by mouth daily. 100 Tablet 1 06/18/2021 Active Continuous Blood Gluc General Medical Practitioner (FREESTYLE CHARLES 14 DAY READER) ITALIA 06/03/2021 Active gabapentin (NEURONTIN) 300 MG capsuleIndications:Ty pe 2 diabetes mellitus with peripheral neuropathy (HRC) 1 cap PO AM and noon 2 caps PO PM 120 Capsule 5 08/02/2021 Active pravastatin (PRAVACHOL) 10 MG tabletIndications:Typ e 2 diabetes mellitus with peripheral neuropathy (HRC) Take 1 Tablet (10 mg) by mouth daily at bedtime. 90 Tablet 1 08/02/2021 Active metFORMIN XR (GLUCOPHAGE XR) 500 MG 24 hour release tabletIndications:Typ e 2 diabetes mellitus with peripheral neuropathy (HRC) Take 4 Tablets (2,000 mg) by mouth daily. 360 Tablet 1 08/02/2021 Active ketorolac (TORADOL) 10 MG tabletIndications:Den kirill caries Take 1 Tablet (10 mg) by mouth daily as needed for Pain. 5 Tablet 08/02/2021 Active escitalopram (LEXAPRO) 10 MG tabletIndications:Rec urrent major depressive disorder, remission status unspecified (HRC) TAKE 1 TABLET(10 MG) BY MOUTH DAILY 90 Tablet 2 12/11/2021 Active losartan (COZAAR) 100 MG tabletIndications:Typ e 2 diabetes mellitus with peripheral neuropathy (HRC),Essential hypertension (HRC) TAKE 1 TABLET(100 MG) BY MOUTH DAILY 90 Tablet 04/06/2022 Active Active Problems Problem Noted Date Diagnosed Date Recurrent major depressive disorder 08/02/2021 Sensorineural hearing loss, asymmetrical 020 Type 2 diabetes mellitus with peripheral neuropa thy 01/17/2019 Essential hypertension 09/10/2008 Inguinal hernia 09/28/2007 Overview (01/18/2017): LW Modifier: L ; Hernia Inguinal NOS Immunizations Name Administration Dates Next Due Flu Vac (3+ yrs) 01/24/2020 Flublok (RIV4) 04/05/2022 HepB Adult (Engerix-B, 20+ y rs, 3 dose series) 06/19/2020,05/08/2020 Influenza IIV4 (Quadrivalent) 0.5mL (82360) 12/2020,01/11/2020 Influenza ccIIV3 6 months+ (Flucelvax) 5 Influenza, Unspecified Formulation 05/12/2015 Measles 10/05/1976 PPSV23 (Pneumovax) 05/08/2020 Pfizer Monovalent 12+ Purple Top 08/02/2021,08/28,08/31/2020 Td (7+ yrs) 12/24/2007 Tdap 01/17/2019,12/24/2007 Zoster RZV (Shingrix) 03/22/2020,01/24/2020,12/27 Social History Tobacco Use Types Packs/Day Years Used Date Smoking Tobacco: Never Smokeless Tobacco: Former Chew Quit: 09/08/2018 Comments:Chewing tobacco Alcohol Use Standard Drinks/Week Comments Not Currently 0 (1 standard drink = 0.6 oz pur e alcohol) 1 bottle of rum weekly PHQ-2 Answer Date Recorded PHQ-2 Score 1 11/16/2020 Sex and Gender Information Value Date Recorded Sex Assigned at Not on file Gender Identity Not on file Sexual Orientation Not on file Last Filed Vital Signs Vital Sign Reading Time Taken Comments Blood Pressure 137/86 08/02/2021 10:15 AM INSURANCE ASSISTANT Pulse 61 08/02/2021 10:15 AM INSURANCE ASSISTANT Temperature 36.7 ??C (98 ??F) 08/02/2021 10:15 AM INSURANCE ASSISTANT Respiratory Rate 16 05/03/2021 1:28 PM INSURANCE ASSISTANT Oxygen Saturation 96% 05/03/2021 1:28 PM INSURANCE ASSISTANT Inhaled Oxygen Concentration - - Weight 77.1 kg (170 lb) 08/02/2021 10:15 AM INSURANCE ASSISTANT Height 174.4 cm (5' 8.65) 08/02/2021 10:[address] Body Mass Index 25.36 08/02/2021 10:15 AM INSURANCE ASSISTANT Plan of Treatment Health Maintenance Due Date Last Done Comments Diabetes: Eye Exam 1960 Diabetes: Foot Exam 1960 Diabetes: Lipid Panel 1960 Hep C Screening (Preventive Services) 1960 PSA Screening Discussion 1962 HIV Screening (Preventive Services) 1978 Adult Preventive Visit 01/10/1980 HepA (1 of 2 - Risk 2-dose series) 1981 HepB (3) 11/06/2020 06/19/2020, 05/08/2020 Pneumococcal (2 - PCV) 05/08/2021 05/08/2020 Diabetes: HGBA1C 11/02/2021 08/02/2021, 11/2021, 05/04/2021, Additional history exists Diabetes: Urine Microalbumin 11/16/2021 11/16/2020 Diabetes: Creatinine 08/02/2022 08/02/2021, 04/23/20 21 COVID-19 Vaccine ( - season) 2024 08/02/2021, 09/21/2020, 08/31/2020 Influenza (#1) 2024 04/05/2022, 12/12/2020, 01/24/2020, Additional history exists Colonoscopy 05/08/2024 05/08/2014 (Completed) DTaP/Tdap/Td (3 - Tdap) 01/17/2029 01/18/20 19, 12/24/2007, 12/24/2007 RSV (1 - 1-dose 75+ series) 2037 Zoster/Shingles Completed 03/22/2020, 12/28, 01/06/2020 Hib Aged Out No longer eligi ble based on patient's age to complete this topic IPV (Polio) Aged Out No longer eligi ble based on patient's age to complete this topic MCV4 Aged Out No longer eligi ble based on patient's age to complete this topic Procedures Procedure Name Priority Date/Time Associated Diagnosis Comments CREATININE / GFR Routine 08/02/2021 11:2 6 AM INSURANCE ASSISTANT Preoperative examination Essential hypertension HGB A1C Routine 08/02/2021 11:26 AM INSURANCE ASSISTANT Type 2 diabetes mellitus with peripheral neuropathy (HRC) ALBUMIN/CREAT RATIO Routine 11/16/2020 1 1:18 AM CDT Type 2 diabetes mellitus with peripheral neuropathy (HRC) from Last 3 Months or Most Recently Relevant to Health Maintenance Results * Creatinine (08/02/2021 11:26 AM INSURANCE ASSISTANT) Creatinine 1.00 0.73 - 1.18 mg/dL 08/02/2021 4:36 PM [facility] GFR, Estimated >60 >60 mL/min/1.7 3m2 08/02/2021 4:36 PM [facility] Blood Venipuncture / Unknown 08/02/2021 11:26 AM INSURANCE ASSISTANT 08/02/2021 11:26 AM INSURANCE ASSISTANT Manuel Whitney MD LAB_1 Performing Organization Address [facility] Co de Phone Number [facility] [address] [phone], [facility] [phone] * (ABNORMAL) Hemoglobin A1C Glycosylated (08/02/2021 11:26 AM INSURANCE ASSISTANT) Hemoglobin A1C (Rapid) 7.0(H) <=5.6 % 08/02/2021 11:48 AM INSURANCE ASSISTANT [facility] Blood Venipuncture / Unknown 08/02/2021 11:26 AM INSURANCE ASSISTANT 08/02/2021 11:26 AM INSURANCE ASSISTANT Narrative [facility] - 08/02/2021 11:48 AM INSURANCE ASSISTANT For patients not previously diagnosed with diabetes: 5.7-6.4%: Increased risk for diabetes 6.5% and greater: Diagnostic for diabetes For patients diagnosed with diabetes: <8.0%: Goal of therapy for ages 18-75 Clinicians may recommend a higher or lower goal for specific individuals. This Hemoglobin A1c assay has significant interference with elevated Hemoglobin (HbF) and other Hemoglobin variants. In patients with results that do not correlate clinically, contact the laboratory for further direction. Manuel Whitney MD LAB_1 Performing Organization Address [facility] de Phone Number [facility] [address] [place] [address], [facility] [phone] * Microalbumin Urine Random (UMAR) (11/16/2020 11:18 AM CDT) Albumin, Urine, Random 3.1 mg/L 11/16/2020 2:44 PM CDT [facility] Creatinine, Urine, Random 89 >20 mg/dL 11/16/2020 2:44 PM CDT [facility] Albumin/Creati nine Ratio, Urine, Random 3 <30 mg/g 11/16/2020 2:44 PM CDT [facility] Urine Non-blood Collection / Unknown 11/16/2020 11:18 AM CDT 11/16/2020 11:18 AM CDT Manuel Whitney MD LAB_1 [facility] [address] [place] [address], [facility] [phone] from Last 3 Months or Most Recently Relevant to Health Maintenance Advance Directives Documents on File Type Date Recorded 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
--- OUTSIDE RECORDS SUMMARY | 2024-02-26 14:41 | XMS_ITS | Clinical Summary ---
Author Organization [email or web address] Address [place], [place] [address] Care Team Providers Care Eradicator Name Role Phone Preethi Armenta Primary Care Provider [phone] Allergies Active Allergy Reactions Criticality Noted Date Comments Dust Mites Itching 06/15/2018 Penicillins *Unknown - Childhood Rxn 02/18/2011 Unlisted Allergen (Include Detail In Comments) *Unknown 07/24/2019 Medications Medication Sig Dispensed Refills Start Date End Date Status acetaminophen (TYLENOL) 325 mg tablet Take 2 Tablets (650 mg) by mouth every 4 hours if needed (Pain). Max acetaminophen dose: 4000mg in 24 hrs. 0 05/12/2021 Active azelastine 137 mcg/actuation (ASTELIN) nasal sprayIndications:C hronic vasomotor rhinitis Inhale 1 [place] into affected nostril(s) two times daily. 30 mL 5 09/05/2022 Active omeprazole (PRILOSEC) 40 mg Delayed-Release capsuleIndications :Chronic GERD Take 1 Capsule (40 mg) by mouth once daily before a meal. 90 Capsule 3 01/03/2023 Active ibuprofen (ADVIL; MOTRIN) 200 mg tablet Take 200-400 mg by mouth every 6 hours if needed for Pain. Active pravastatin (PRAVACHOL) 10 mg tablet Take 10 mg by mouth at bedtime. 08/02/2021 Active amLODIPine (NORVASC) 5 mg tabletIndications: Essential hypertension Take 1 Tablet (5 mg) by mouth once daily. 90 Tablet 07/17/2023 Active losartan (COZAAR) 100 mg tabletIndications: Essential hypertension Take 1 Tablet (100 mg) by mouth once daily. 90 Tablet 07/17/2023 Active metFORMIN (GLUCOPHAGE XR) 500 mg Extended-Release tabletIndications: Type 2 diabetes mellitus without complication, without long-term current use of insulin (HC) Take 1 Tablet (500 mg) by mouth two times daily with meals. 180 Tablet 07/17/2023 Active gabapentin (NEURONTIN) 300 mg capsuleIndications :Type 2 diabetes mellitus with peripheral neuropathy (HC) 1 cap PO AM and 2 caps PO PM 90 Capsule 2 07/18/2023 Active Active Problems Problem Noted Date Diagnosed Date Type 2 diabetes mellitus with peripheral neuropa thy 07/17/2023 Alcoholic hepatitis without ascites 01/03/2023 Alcohol withdrawal syndrome without complication 05/03/2021 Lactic acidosis 05/03/2021 LFT elevation 05/03/2021 Alcohol intoxication 05/03/2021 Essential hypertension 06/15/2018 Adenomatous colon polyp 05/09/2014 Overview (05/09/2014): Colonoscopy 04/2014 polyp repeat in 5 years Depression 04/30/2014 Overview (04/30/2014): He reports he has had this all his life. History of acute pancreatitis 02/19/2011 Acute pancreatitis 02/19/2011 Alcohol abuse, unspecified 02/19/2011 Overview (04/30/2014): He had treatment at [facility] in 2009 and this helped. Otosclerosis 02/19/2011 Abdominal pain, epigastric 02/18/2011 Resolved Problems Problem Noted Date Diagnosed Date Resolved Date HTN (hypertension) 02/18/2011 9 Encounters Date Type Department Care Team Description 02/20/2024 Refill [facility] [address] [place] [address] Preethi Armenta PA Refill Request (Amlodipine) 02/07/2024 Orders Only [facility] Scanner 1 scan: (1-Ord) [facility], CT HEAD/BRAIN WO CON, 02/07/2024 from Last 3 Months Immunizations Name Administration Dates Next Due COVID-19 vaccine ([employer] NTKybernesis 30mcg/0.3mL) DIANA GRIER 08/02/2021,09/21/2020,08/31/2020 Hepatitis B (Adult) 06/19/2020,05/08/2020 Influenza RIV4 (Age 18+ Years) PRESERV FREE 12/2021 Influenza Virus, Unspecified 05/12/2015 Influenza, CCIIV3 (Age >=6 MO) 05/12/2015 Influenza, IIV3 (Age >=3 years) 01/24/2020 Influenza, IIV4 02/15/2023,05/05/2021,01/11/2020 Measles 10/05/1976 Pneumococcal Conj 20-valent (Prevnar 20) 023 Pneumococcal Poly,23-Valent (Pneumovax) 05/08/20 20 Td (Age >=7 Years) 12/24/2007 Tdap 01/17/2019,12/24/2007 Zoster (Shingrix-RZV, recombinant) 03/22/2020,,01/06/2020 Family History Medical History Relation Name Comments Hypertension Father high cholestero l Hypertension Mother high cholestero l Relation Name Status Comments Father Mother Social History Tobacco Use Types Packs/Day Years Used Date Smoking Tobacco: Never Smokeless Tobacco: Current Chew Tobacco Cessation:Ready to Q uit: Not Asked; Counseling Given: Yes Comments:pt has cut back Alcohol Use Standard Drinks/Week Comments Not Currently 0 (1 standard drink = 0.6 oz pur e alcohol) Sober PHQ-2 Answer Date Recorded PHQ-2 TOTAL SCORE 1 07/17/2023 Social Connections Answer Date Recorded Frequency of Communication with Friends and Fami ly Not on file 07/25/2022 Sex and Gender Information Value Date Recorded Sex Assigned at Not on file Gender Identity Not on file Sexual Orientation Not on file Obstetrics History Last Filed Vital Signs Vital Sign Reading Time Taken Comments Blood Pressure 121/78 09/19/2023 11:47 AM CDT Pulse 67 09/19/2023 11:47 AM CDT Temperature 36.6 ??C (97.8 ??F) 07/25/2022 10:[address] Respiratory Rate 16 05/09/2021 8:34 AM MOTION GRAPHICS DESIGNER Oxygen Saturation 100% 09/19/2023 11:47 AM CDT Inhaled Oxygen Concentration - - Weight 76.2 kg (168 lb) 09/19/2023 11:47 AM CDT Height 174.3 cm (5' 8.62) 01/03/2023 10:13 AM C DT Body Mass Index 25.08 01/03/2023 10:13 AM CDT Plan of Treatment Health Maintenance Due Date Last Done Comments Colonoscopy through age 75 05/08/2019 05/08/2014 BMI (ht and wt on same day) for age 18+ 01/04/2024 01/03/2023, 08/22/2022, 07/25/2022, Additional history exists COVID-19 vaccine series ( season) 2024 08/02/2021, 09/21/2020, 08/31/2020 Influenza for age 50-64 01/28/2024 02/16/20 23, 04/05/2022, 05/05/2021, Additional history exists Depression screening for age 12+ 07/18/2024 07/18/2023, 07/17/2023, 07/17/2023, Additional history exists Lipids for age 45-75 01/04/2028 01/03/2023, 07/08/2015, 07/08/2015, Additional history exists Tetanus booster 01/17/2029 01/17/2019, 11/27, 12/24/2007 Tdap Completed 01/17/2019, 12/24/2007 Zoster (shingles) series for age 50+ Completed 03/22/2020, 01/24/2020, 01/06/2020 HIV for age 15-65 Completed 01/03/2023 Hepatitis C screening for ag e 18-79 Completed 01/03/2023 Pneumococcal series for age 6-64 Completed 01/04/20 23, 05/08/2020 Procedures Procedure Name Priority Date/Time Associated Diagnosis Comments SCAN-CT INTERPRETATION 02/07/2024 12:00 AM CDT LC HIV-1/O/2, 4TH GENERATION Routine 01/03/2023 11:37 AM CDT Encounter for hepatitis C screening test for low risk patient LC HCV ANTIBODY RFX TO QUANT PCR Routine 01/03/2023 11:37 AM CDT Encounter for screening for human immunodeficiency virus (HIV) LIPID PANEL W REFLEX MEASURED LDL Routine 01/03/2023 11:37 AM CDT Lipid screening from Last 3 Months or Most Recently Relevant to Health Maintenance Results * SCAN-CT INTERPRETATION (02/07/2024 12:00 AM CDT) Anatomical Region Laterality Modality Other Scanner OTHER * LC HCV ANTIBODY RFX TO QUANT PCR (01/03/2023 11:37 AM CDT) HCV Ab Non Reactive Non Reactive 01/06/2023 7:19 AM CDT [facility] ([facility]) Blood BLOOD SPECIMEN / Unknown Venipuncture / Unknown 01/03/2023 11:37 AM CDT 01/03/2023 11:39 AM CDT Narrative [facility] ([facility]) - 01/06/2023 7:19 AM CDT Performed at: ??[address] ??[id number] Personal Vehicle Advisor: Quan Mao MD, Phone: ??[phone] Preethi [facility] ([facility]ET) [address] [place] [address] * LC HIV-1/O/2, 4TH GENERATION (01/03/2023 11:37 AM CDT) Pathologist [facility] HIV Scr 4th Gen Non Reactive Non Reactive 01/05/2023 10:06 PM CDT [facility] ([facility]) Comment: HIV Negative HIV-1/HIV-2 antibodies and HIV-1 p24 antigen were NOT detected. There is no laboratory evidence of HIV infection. Blood BLOOD SPECIMEN / Unknown Venipuncture / Unknown 01/03/2023 11:37 AM CDT 01/03/2023 11:39 AM CDT Narrative [facility] ([facility]) - 01/05/2023 10:06 PM CDT Performed at: ??01 [facility] [address] [place], [place] ??[id number] Personal Vehicle Advisor: Quan Mao MD, Phone: ??[phone] Preethi [facility] (CET) [facility] [place] [address], * LIPID PANEL W REFLEX MEASURED LDL (01/03/2023 11:37 AM CDT) CHOLESTEROL,TOTAL 153 100 - 199 mg/dL 01/04/2023 12:00 AM CDT [id number] LAB[facility]AT[facility] TR[facility]ATORY Comment: Cholesterol, Total Reference Ranges Desirable <200 mg/dL Borderline 200-239 mg/dL High >=240 mg/dL TRIGLYCERIDES 70 <150 mg/dL 01/04/2023 12:00 AM CDT [facility] HDL CHOLESTEROL 76 >40 mg/dL 12:00 AM CDT [facility] NON-HDL CHOLESTEROL 77 <145 mg/dl 01/04/2023 12:00 AM CDT [facility] CHOL/HDL RATIO 2.01 <4.50 01/04/2023 12:00 AM CDT [facility] LDL CHOLESTEROL 63 <=130 mg/dL 01/04/2023 12:00 AM CDT [facility] VLDL CHOLESTEROL 14 <=30 mg/dL 01/04/2023 12:00 AM CDT [facility] PROVIDER ORDERED STATUS RANDOM 01/04/2023 12:00 AM T [facility] Blood BLOOD SPECIMEN / Unknown Venipuncture / Unknown 01/03/2023 11:37 AM CDT 01/03/2023 11:39 AM CDT Preethi RIVERA CHEMISTRY [facility] [address] [place] [address], [place] from Last 3 Months or Most Recently Relevant to Health Maintenance Advance Directives * Full Code (Latest Code Status on File) Date Activated Date Inactivated Comments 05/03/2021 10:38 PM 05/09/2021 5:31 PM Question Answer Comments Code Status Discussion: Reviewed Preferences * Full Code Date Activated Date Inactivated Comments 02/18/2011 10:56 PM 02/20/2011 2:15 PM Care Teams Eradicator Relationship Specialty Start Date End Date Preethi Armenta PA [address] [place] [address] PCP - General Physician Premium Card Cancellation Clerk 01/03/23
[2024-02-26 15:16] LABS: Appearance Urine Clear (Clear); Bilirubin Urine Negative (Negative); Blood Urine Trace-intact (Negative); Color Urine Yellow (Yellow); Glucose Urine Negative (Negative); Ketones Urine Negative (Negative); Leukocyte Esterase Urine Negative (Negative); Nitrite Urine Negative (Negative); Protein Urine Negative (Negative); Specific Gravity Urine 1.015 (1.000-1.030); Urobilinogen Urine 0.2 (0.2-1.0); pH Urine 8.5 (5.0-8.5)
[2024-02-26 15:21] LABS: PCR FLU A Negative PCR FLU A (Negative); PCR FLU B Negative PCR FLU B (Negative); SARS PCR* Negative SARS-CoV-2 (Negative)
[2024-02-26 15:32] LABS: RBC Urine 0-2 (0-2); WBC Urine 0-2 (0-5)
[2024-02-26] MEDS: HYDROCODONE-ACETAMIN 5-325 MG 1 TAB PO (17:03)
--- NOTE | 2024-02-26 17:35 | ED.NURSE ---
Pt report given to miguel LU. Pt to 249.
--- NOTE | 2024-02-26 18:03 | P.IMHP_ITS ---
Hospitalist- H&P: HPI History of Present Illness Date Seen: 02/26/24 Chief complaint: vertigo/sinus symptoms Narrative: Woodrow Holder is a 64 year old male with alcohol use disorder who presents to the emergency room with poor balance, shakiness and falls. He also notes that he has had nasal congestion and sinus drainage causing some nausea. He is not aware of a fever. He he has had 2 falls in the last week. Possible black out or loss of consciousness on each occasion. He is quite vague about this. Does not remember details. Hit his head on both occasions however. He reports the unsteadiness on his feet has just been a problem recently but review of the records indicates this is a chronic problem for him. In any case he thinks it is worse today. He has been bothered by sinus drainage and has been taking a large dose of diphenhydramine, up to a 100 mg (4 capsules) at a time to dry himself out. He did that today. He attributes his congestion and sinus drainage to environmental allergies though not clearly formally diagnosed with that in the past. He tells me he does not have a problem with alcohol. I note that he has had hospital admission earlier this month and in June for alcohol-related problems and he reports that those were not alcohol-related problems. He does continue to drink occasionally but denies it is a problem for him. He has been through treatment on at least 2 previous occasions. He reports many family members believe he has an alcohol problem. He reports his last drink was yesterday or the day before. Review of Systems Narrative: Primary concerns today are his chronic written rhinitis and nasal congestion, headache from falling and hitting his head, very poor balance, feeling very shaky. 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 - Alcoholic fibrosis and sclerosis of liver (ICD-10) Noncompliance with medication regimen ?Z91.148 - Patient's other noncompliance with medication regimen for other reason (ICD-10) Medication noncompliance due to cognitive impairment ?R41.9 - Unspecified symptoms and signs involving cognitive functions and awareness (ICD-10) ?Z91.148 - Patient's other noncompliance with medication regimen for other reason (ICD-10) Malnutrition ?E46 - Unspecified protein-calorie malnutrition (ICD-10) Ascending aortic aneurysm ?I71.21 - Aneurysm of the ascending aorta, without rupture (ICD-10) History of pancreatitis ?Z87.19 - Personal history of other diseases of the digestive system (ICD-10) Hypertension ?I10 - Essential (primary) hypertension (ICD-10) Diabetes ?E11.9 - Type 2 diabetes mellitus without complications (ICD-10) Depression ?F32.A - Depression, unspecified (ICD-10) Diabetes type 2, controlled ?E11.9 - Type 2 diabetes mellitus without complications (ICD-10) Surgical History Hx of nasal septoplasty ?Z98.890 - Other specified postprocedural states (ICD-10) S/P ACL repair ?Z98.890 - Other specified postprocedural states (ICD-10) H/O hernia repair ?Z98.890 - Other specified postprocedural states (ICD-10) ?Z87.19 - Personal history of other diseases of the digestive system (ICD-10) H/O stapedectomy ?Z90.09 - Acquired absence of other part of head and neck (ICD-10) Social History (Updated 02/26/24 @ 18:16 by John Salmon MD) Narrative: Currently living with mother in [place]. Brother Des MICHAEL in [place], [place]) would be medical decision maker if needed. History of alcohol abuse. Reports minimal non-problematic drinking currently. Requests Full Code status. What is your current living situation?: I have a place to live at present, but am concerned about future Problems where you live: no known problems Problems where you live details: pt lives in basement of mothers home In the past 12 months, utilities in danger of being shut off: no In past 12 months, lack of transportation kept you from medical appts, meetings, work, or getting things needed for daily living: declined to answer In the past 12 mos, have been you worried that your food would run out before you had money to buy more?: never true In the past 12 mos, the food you bought just didn't last and you didn't have money to buy more?: never true Highest level of school completed/degree received: Bachelor's degree Smoking Status: Smoker, status unknown Do you use any of these nicotine containing products: Smokeless Tobacco Nicotine containing products detail: chew How often do you have a drink containing alcohol: 4 or more times a week Alcohol type: hard liquor Alcohol type details: pt drinks a 5th of whisky daily How many standard drinks containing alcohol do you have on a typical day: 5 or 6 How often do you have six or more drinks on one occasion: Daily or almost daily AUDIT-C Alcohol total score: 10 Non-prescribed substance use: denies use Caffeine: No How often does anyone, including family, friends and others, physically hurt you : never How often does anyone, including family, friends and others, insult or talk down to you: never How often does anyone, including family, friends and others, threaten you with harm: never How often does anyone, including family, friends and others, scream or curse at you: never service: No Meds Home Medications and Allergies Home Medications ?Medication ?Instructions ?Recorded ?Confirmed ?Type losartan 100 mg tablet 100 mg PO DAILY 07/11/23 02/07/24 History acetaminophen 325 mg tablet 650 mg PO Q4H PRN 02/07/24 02/07/24 History amlodipine 5 mg tablet 5 mg PO DAILY 02/07/24 02/07/24 History azelastine 137 mcg (0.1 %) nasal 1 spray intranasal BID 02/07/24 02/07/24 History spray gabapentin 300 mg capsule 300 mg PO DAILY 02/07/24 02/07/24 History gabapentin 300 mg capsule 600 mg PO HS 02/07/24 02/07/24 History metformin 500 mg tablet,extended 500 mg PO BIDWM 02/07/24 02/07/24 History release 24 hr omeprazole 40 mg capsule,delayed 40 mg PO DAILY 02/07/24 02/07/24 History release pravastatin 10 mg tablet 10 mg PO HS 02/07/24 02/07/24 History Home Medication Comments: Patient unsure about his medications. Is probably only taking losartan and p.r.n. acetaminophen and p.r.n. diphenhydramine Allergies Allergy/AdvReac Type Severity Reaction Status Date / Time Penicillins Allergy Unknown Verified 02/26/24 14:09 Exam Narrative: Exam Narrative: He is alert and appears in no distress. Moderate coarse tremor in both hands. Eyes normal. Oropharynx: Edentulous. Neck is supple without mass or adenopathy. Points to the posterior neck is an area of discomfort from recent falls. Respirations are clear to auscultation. Breathing is unlabored. Cardiovascular: S1, S2, regular tachycardia. Abdomen is soft without tenderness or mass. Intact peripheral pulses. No rash. Moves all 4 extremities well. Const: Vital Signs, click to edit/add: Vital Signs - 24 hr 02/26/24 12:03 02/26/24 12:59 02/26/24 13:00 Temperature 99.1 F Pulse Rate 96 94 Pulse Rate [Right Pulse Oximeter] 94 Respiratory Rate 20 Blood Pressure Blood Pressure [Ri ght Upper Arm] 183/98 H Pulse Oximetry 100 97 99 Oxygen Delivery Me od Room Air 02/26/24 13:15 02/26/24 13:30 02/26/24 13:53 Temperature Pulse Rate 99 100 95 Pulse Rate [Right Pulse Oximeter] Respiratory Rate Blood Pressure Blood Pressure [Ri ght Upper Arm] Pulse Oximetry 100 100 100 Oxygen Delivery Me thod 02/26/24 14:21 02/26/24 14:30 02/26/24 14:40 Temperature Pulse Rate 105 H 91 94 Pulse Rate [Right Pulse Oximeter] Respiratory Rate Blood Pressure 174/102 H Blood Pressure [Ri ght Upper Arm] Pulse Oximetry 100 100 99 Oxygen Delivery Me thod 02/26/24 14:45 02/26/24 15:00 02/26/24 15:03 Temperature Pulse Rate 104 H 102 H 93 Pulse Rate [Right Pulse Oximeter] Respiratory Rate Blood Pressure 174/95 H Blood Pressure [Ri ght Upper Arm] Pulse Oximetry 100 92 100 Oxygen Delivery Me thod 02/26/24 15:04 02/26/24 15:15 02/26/24 15:30 Temperature Pulse Rate 92 95 91 Pulse Rate [Right Pulse Oximeter] Respiratory Rate Blood Pressure Blood Pressure [Ri ght Upper Arm] Pulse Oximetry 100 97 100 Oxygen Delivery La thod 02/26/24 15:32 02/26/24 15:45 02/26/24 16:00 Temperature Pulse Rate 90 100 91 Pulse Rate [Right Pulse Oximeter] Respiratory Rate Blood Pressure 162/88 H Blood Pressure [Ri ght Upper Arm] Pulse Oximetry 96 100 98 Oxygen Delivery Me thod 02/26/24 16:01 02/26/24 16:15 02/26/24 16:30 Temperature Pulse Rate 93 91 89 Pulse Rate [Right Pulse Oximeter] Respiratory Rate Blood Pressure 164/94 H Blood Pressure [Ri ght Upper Arm] Pulse Oximetry 96 100 97 Oxygen Delivery Me thod 02/26/24 16:32 02/26/24 16:45 02/26/24 17:04 Temperature Pulse Rate 95 95 91 Pulse Rate [Right Pulse Oximeter] Respiratory Rate Blood Pressure 155/93 H Blood Pressure [Ri ght Upper Arm] Pulse Oximetry 99 98 100 Oxygen Delivery Me thod Documenting provider has reviewed patient's vital signs: yes Hospitalist - H&P: Result Labs Labs: Short CBC 02/26/24 Range/Units 13:50 WBC 5.71 (4.50-11.00) K/uL Hgb 11.4 L (13.5-17.5) gm/dL Hct 32.9 L (37.0-53.0) % Plt Count 210 (140-440) K/uL BMP 02/26/24 13:50 Sodium 137 Potassium 3.5 L Chloride 99 Carbon Dioxide 26 BUN 15 Creatinine 0.9 Glucose 146 H Calcium 9.4 Cardiac Enzymes 02/26/24 Range/Units 13:50 Troponin I < 0.01 L (0.01-0.04) ng/mL Liver Function 02/26/24 Range/Units 13:50 Total Bilirubin 1.5 (0.1-1.5) mg/dL AST 88 H (12-35) U/L ALT 43 (4-50) U/L Alkaline Phosphatase 107 (40-150) U/L Albumin 4.9 (3.3-5.0) g/dL Urine 02/26/24 Range/Units 15:04 Urine Color Yellow (Yellow) Urine Appearance Clear (Clear) Urine pH 8.5 (5.0-8.5) Ur Specific United 1.015 (1.000-1.030) Urine Protein Negative (Negative) Urine Glucose (UA) Negative (Negative) Assessment and Plan Assessment and plan (1) Alcohol abuse: Problem comment: This is likely an ongoing problem. He has a long list of acute and chronic medical problems largely attributed to ongoing alcohol abuse. Strongly denies significant alcohol use or alcohol-related problems. Status: Acute (2) Alcohol withdrawal: Problem comment: Patient appears to be having mild to moderate withdrawal symptoms at this time. Initiate CIWA protocol. Initiate phenobarb Status: Resolved (3) Ataxia: Problem comment: Patient reports this is worse than usual for him. 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 PT to evaluate. Stop diphenhydramine Status: Acute (4) Head injury: Status: Acute (5) Diabetes type 2, controlled: Problem comment: Previously on metformin. Now rarely uses it. Has had recurrent lactic acidos is likely due to chronic liver disease so metformin is relatively contraindicated Status: Acute (6) Acute neck pain: Problem comment: Due to fall with head injury Status: Acute (7) Fall: Problem comment: CT shows no acute intracranial bleed or fracture of skull or C-spine. PT and OT to assess for safety. Status: Acute (8) Hypokalemia: Problem comment: Replace and follow Status: Acute (9) Hypomagnesemia: Problem comment: Replace and follow Status: Acute (10) Noncompliance with medication regimen: Problem comment: Counseled on taking medications. Patient is unsure of what medicines he is taking and indicates he is mostly not taking medications that were prescribed when he was discharged 3 weeks ago. Status: Acute (11) Tremor: Problem comment: Likely has both chronic tremor from alcohol abuse and acute tremor from alcohol withdrawal. Status: Acute (12) Chronic rhinitis: Problem comment: Cause for this is uncertain. Patient attributes it to environmental allergies. At this point he is taking too much diphenhydramine. 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 Severe fibrosis/cirrhosis scores may need liver biopsy for confirmation of cirrhosis unless there are other clinical or imaging signs of progression to end-stage liver disease. PCP for ongoing evaluation and management. Status: Acute Plan Patient is admitted to the hospital for evaluation and treatment of relatively severe ataxia and itdg-ae-cyyddsct alcohol withdrawal. Will withhold diphenhydramine and alcohol. Initiate CIWA protocol. Therapy to evaluate mobility. If patient is not getting back to baseline consider MRI imaging to look for cerebellar stroke. Total Time Spent Total Time Spent: Total time spent today is 80 minutes in reviewing records, discussing with patient other providers ongoing evaluation management of the multiple issues outlined above.
--- NOTE | 2024-02-26 19:40 | PC.NURSE ---
Addendum entered by Hallie Quiroz RN 02/26/24 19:48: Patient has tremors which he stated are his baseline. CIWA 7 for tremors Original Note: Patient alert and oriented x4. Arrived to the unit around 1800. Complains of nausea. CIWA negative. Complains of neck pain. Vital signs stable.
[2024-02-26] MEDS: POTASSIUM BICARB 25 MEQ EFFERVESCENT TAB PO (19:51)
[2024-02-26] MEDS: PHENobarbitaL 32.4 MG TABLET 324 MG PO (19:52)
[2024-02-26] MEDS: THIAMINE 100 MG TABLET PO (19:53)
[2024-02-26] MEDS: PHENobarbitaL 65 MG/ML inj IVP (19:56)
[2024-02-26] MEDS: MAGNESIUM OXIDE 400 MG TABLET PO (21:03)
[2024-02-26] MEDS: ACETAMINOPHEN 325 MG TABLET 650 MG PO (21:33)
[2024-02-26] MEDS: IBUPROFEN 400 MG TABLET PO (22:47)
[2024-02-27 02:30] VITALS: BP 147/107; PULSE 74; RESP 18; TEMP 36.6; O2SAT 98
[2024-02-27] MEDS: ACETAMINOPHEN 325 MG TABLET 650 MG PO ×2 (02:36→08:10)
[2024-02-27] MEDS: IBUPROFEN 400 MG TABLET PO (04:46)
[2024-02-27] MEDS: OMEPRAZOLE 20 MG CAPSULE DR 40 MG PO (06:09)
--- NOTE | 2024-02-27 06:25 | PC.NURSE ---
19-07: pleasant and cooperative. indep with walker. pt awake all night, walked halls x 2, pt stated he is a night owl & hes usually up most of the night. pt c/o pain in neck from previous fall, ice/heat utilized & alternating Tylenol & Ibuprofen PO, offering some relief. Upon initial assessment pts hands were quite tremulous, after admin of phenobarb - tremors stopped. No Ativan needed per CIWA protocol. VSS.
[2024-02-27 06:47] LABS: Magnesium* 1.8 mg/dL (1.5-2.6)
[2024-02-27 08:30] VITALS: BP 142/103; PULSE 72; RESP 16; TEMP 36.6; O2SAT 96
[2024-02-27] MEDS: FOLIC ACID 1 MG TABLET PO (08:37)
[2024-02-27] MEDS: LOSARTAN POTASSIUM 50 MG TABLET 100 MG PO (08:37)
[2024-02-27] MEDS: AMLODIPINE 5 MG TABLET PO (08:37)
[2024-02-27] MEDS: MAGNESIUM OXIDE 400 MG TABLET PO (08:37)
[2024-02-27 08:41] LABS: Lactate* 1.7 mmol/L (0.5-1.9)
[2024-02-27] MEDS: SODIUM CHLORIDE 0.9 % (FLUSH) 10 ML SYRINGE 5 ML IVF (08:41)
[2024-02-27 09:08] LABS: Chloride* 101 mmol/L (96-114); Potassium* 3.4 mmol/L (3.6-5.1); Sodium* 135 mmol/L (135-149)
[2024-02-27 09:11] LABS: Anion Gap 10 mEq/L (7-15); Blood Urea Nitrogen* 10 mg/dL (7-30); Calcium* 8.8 mg/dL (8.4-10.6); Carbon Dioxide* 24 mmol/L (20-32); Creatinine* 0.9 mg/dL (0.5-1.5); Est. Creatinine Clearance* 74.74; Estimated Glomerular Filt Rate 97 ml/min; Glucose* 133 mg/dL (60-115)
--- NOTE | 2024-02-27 09:17 | P.DS_ITS ---
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 Operator [CONS] Urgent Comment: Reason for Consult:: Social Service Consult Attending Physician on discharge: Patricia Michael MD Date of Discharge: 02/27/24 DS: Diagnosis Discharge Diagnosis (1) Adverse drug interaction with alcohol: Status: Resolved Problem details: - Ataxia has improved and he is ambulating in [place] independently with his walker - Suspect acute vertigo and ataxia was secondary to diphenhydramine and alcohol use (2) Vertigo: Status: Resolved Problem details: - Suspect acute vertigo and ataxia was secondary to diphenhydramine and alcohol use (3) Ataxia: Status: Acute Problem details: Patient reports this is worse than usual for him. 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 - Acute on chronic, suspect due to diphenhydramine plus alcohol use. - Improved back to baseline. Stop diphenhydramine and recommnended avoiding all alcohol. (4) Alcohol abuse: Status: Acute Problem details: This is likely an ongoing problem. He has a long list of acute and chronic medical problems largely attributed to ongoing alcohol abuse. Strongly denies significant alcohol use or alcohol-related problems. - I asked our SW, Shea, to give him resources for treatment before discharge today (5) Alcohol withdrawal: Status: Acute Problem details: Patient appears to be having mild to moderate withdrawal symptoms at this time. CIWA score 7 yesterday on admission, 1-2 overnight. (6) Head injury: Status: Acute (7) Diabetes type 2, controlled: Status: Chronic Problem details: Previously on metformin. Now rarely uses it. Has had recurrent lactic acidosis likely due to chronic liver disease so metformin is relatively contraindicated (8) Acute neck pain: Status: Acute Problem details: Due to fall with head injury - patient asking for 5 doses of toradol for pain. I have prescribed this and asked him to not use other NSAIDs (ibuprofen) while using this and to avoid alcohol. (9) Fall: Status: Acute Problem details: CT shows no acute intracranial bleed or fracture of skull or C-spine. (10) Hypokalemia: Status: Acute Problem details: Replace, recheck as outpatient (11) Hypomagnesemia: Status: Resolved Problem details: Mg up to 1.8 today (12) Chronic rhinitis: Status: Chronic Problem details: Cause for this is uncertain. Patient attributes it to environmental allergies. At this point he is taking too much diphenhydramine. 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 Severe fibrosis/ cirrhosis scores may need liver biopsy for confirmation of cirrhosis unless there are other clinical or imaging signs of progression to end-stage liver disease. PCP for ongoing evaluation and management. (14) Tremor: Status: Acute Problem details: Likely has both chronic tremor from alcohol abuse and acute tremor from alcohol withdrawal. (15) Noncompliance with medication regimen: Status: Acute Problem details: Counseled on taking medications. Patient is unsure of what medicines he is taking and indicates he is mostly not taking medications that were prescribed when he was discharged 3 weeks ago. DS: Summary Hospital Course Hospital Course: Per H&P: Woodrow Holder is a 64 year old male with alcohol use disorder who presents to the emergency room with poor balance, shakiness and falls. He also notes that he has had nasal congestion and sinus drainage causing some nausea. He is not aware of a fever. He he has had 2 falls in the last week. Possible black out or loss of consciousness on each occasion. He is quite vague about this. Does not remember details. Hit his head on both occasions however. He reports the unsteadiness on his feet has just been a problem recently but review of the records indicates this is a chronic problem for him. In any case he thinks it is worse today. He has been bothered by sinus drainage and has been taking a large dose of diphenhydramine, up to a 100 mg (4 capsules) at a time to dry himself out. He did that today. He attributes his congestion and sinus drainage to environmental allergies though not clearly formally diagnosed with that in the past. He tells me he does not have a problem with alcohol. I note that he has had hospital admission earlier this month and in June for alcohol-related problems and he reports that those were not alcohol-related problems. He does continue to drink occasionally but denies it is a problem for him. He has been through treatment on at least 2 previous occasions. He reports many family members believe he has an alcohol problem. He reports his last drink was yesterday or the day before. Overnight and today Woodrow's CIWA scores have been low and he has improved to his baseline. Vertigo has resolved; he is ambulating with walker in hallway independently without difficulty. He would like to go home. He agreed that I could call and talk with his brother, Des. I called Des who noted that he has previously contacted the [facility] about possible commitment, but they are very early in that process. Des said Woodrow is not welcome back at his mother's house and will need to find a different place to go. I noted that at this time Woodrow is a competent adult who has a harley to his mother's house and that Woodrow and his family will have to work that out. Des wanted me to keep him here because he wouldn't have a home if they kick him out of his mother's house. I noted that wasn't a reason to stay in the hospital and that they could get him a hotel room or take him to a homeless long term. Time Spent with Patient Time attestation: Total time spent providing and/or coordinating discharge services: 35 minutes due to conversations with the patient and phone conversation the patient's brother. Time spent: Greater than 30 minutes Exam Narrative: Exam Narrative: General: No acute distress. Awake, alert, oriented x3. No pallor. No jaundice. Mild tremor. Walking in the hallway with walker independently without difficulty. Oropharynx: Clear. Mucous membranes moist. Cardiovascular: Regular rate and rhythm. No murmurs, gallops, or rubs. Respiratory: Clear to auscultation bilaterally. No wheezes or crackles. Abdomen: Bowel sounds present. Soft, nondistended, nontender. Extremities: No pedal edema. Neuro: There are no focal deficits. Romberg is negative. Gait is within normal limits. Cranial nerves 2-12 are intact. Extraocular movements are full. No nystagmus. No facial asymmetry. Tongue is midline. Strength is 5/5 in all 4 extremities. Const: Vital Signs, click to edit/add: Vital Signs - 24 hr 02/26/24 12:03 02/26/24 12:59 02/26/24 13:00 Temperature 99.1 F Pulse Rate 96 94 Pulse Rate [Pulse Oximeter] Pulse Rate [Right Pulse Oximeter] 94 Respiratory Rate 20 Blood Pressure Blood Pressure [Le ft Arm] Blood Pressure [Ri ght Upper Arm] 183/98 H Pulse Oximetry 100 97 [facility] 02/26/24 13:15 02/26/24 13:30 02/26/24 13:53 Temperature Pulse Rate 99 100 95 Pulse Rate [Pulse Oximeter] Pulse Rate [Right Pulse Oximeter] Respiratory Rate Blood Pressure Blood Pressure [Le ft Arm] Blood Pressure [Ri ght Upper Arm] Pulse Oximetry 100 100 100 [facility] 02/26/24 14:21 02/26/24 14:30 02/26/24 14:40 Temperature Pulse Rate 105 H 91 94 Pulse Rate [Pulse Oximeter] Pulse Rate [Right Pulse Oximeter] Respiratory Rate Blood Pressure 174/102 H Blood Pressure [Le ft Arm] Blood Pressure [Ri ght Upper Arm] Pulse Oximetry 100 100 99 [facility] 02/26/24 14:45 02/26/24 15:00 02/26/24 15:03 Temperature Pulse Rate 104 H 102 H 93 Pulse Rate [Pulse Oximeter] Pulse Rate [Right Pulse Oximeter] Respiratory Rate Blood Pressure 174/95 H Blood Pressure [Le ft Arm] Blood Pressure [Ri ght Upper Arm] Pulse Oximetry 100 92 100 [facility] 02/26/24 15:04 02/26/24 15:15 02/26/24 15:30 Temperature Pulse Rate 92 95 91 Pulse Rate [Pulse Oximeter] Pulse Rate [Right Pulse Oximeter] Respiratory Rate Blood Pressure Blood Pressure [Le ft Arm] Blood Pressure [Ri ght Upper Arm] Pulse Oximetry 100 97 100 [facility] 02/26/24 15:32 02/26/24 15:45 02/26/24 16:00 Temperature Pulse Rate 90 100 91 Pulse Rate [Pulse Oximeter] Pulse Rate [Right Pulse Oximeter] Respiratory Rate Blood Pressure 162/88 H Blood Pressure [Le ft Arm] Blood Pressure [Ri ght Upper Arm] Pulse Oximetry 96 100 98 [facility] 02/26/24 16:01 02/26/24 16:15 02/26/24 16:30 Temperature Pulse Rate 93 91 89 Pulse Rate [Pulse Oximeter] Pulse Rate [Right Pulse Oximeter] Respiratory Rate Blood Pressure 164/94 H Blood Pressure [Le ft Arm] Blood Pressure [Ri ght Upper Arm] Pulse Oximetry 96 100 97 [facility] 02/26/24 16:32 02/26/24 16:45 02/26/24 17:04 Temperature Pulse Rate 95 95 91 Pulse Rate [Pulse Oximeter] Pulse Rate [Right Pulse Oximeter] Respiratory Rate Blood Pressure 155/93 H Blood Pressure [Le ft Arm] Blood Pressure [Ri ght Upper Arm] Pulse Oximetry 99 98 100 [facility] 02/26/24 17:15 02/26/24 17:30 02/26/24 17:32 Temperature Pulse Rate 94 89 94 Pulse Rate [Pulse Oximeter] Pulse Rate [Right Pulse Oximeter] Respiratory Rate Blood Pressure 162/97 H Blood Pressure [Le ft Arm] Blood Pressure [Ri ght Upper Arm] Pulse Oximetry 100 97 97 [facility] 02/26/24 17:45 02/26/24 18:22 02/26/24 18:26 Temperature 98.0 F 98.0 F Pulse Rate 95 Pulse Rate [Pulse Oximeter] 89 89 Pulse Rate [Right Pulse Oximeter] Respiratory Rate 18 18 Blood Pressure Blood Pressure [Le ft Arm] 160/98 H 160/98 H Blood Pressure [Ri ght Upper Arm] Pulse Oximetry 99 98 98 Oxygen Delivery [facility] Room Air Room Air 02/26/24 18:26 02/26/24 20:05 02/26/24 21:30 Temperature 98.3 F Pulse Rate Pulse Rate [Pulse Oximeter] 77 82 Pulse Rate [Right Pulse Oximeter] Respiratory Rate 18 18 Blood Pressure Blood Pressure [Le ft Arm] 152/91 H 153/100 H Blood Pressure [Ri ght Upper Arm] Pulse Oximetry 98 99 100 Oxygen Delivery [facility] Room Air Room Air Room Air 02/26/24 23:00 02/26/24 23:51 02/27/24 02:30 Temperature 97.8 F Pulse Rate Pulse Rate [Pulse Oximeter] 87 74 Pulse Rate [Right Pulse Oximeter] Respiratory Rate 18 20 18 Blood Pressure Blood Pressure [Le ft Arm] 153/99 H 147/107 H Blood Pressure [Ri ght Upper Arm] Pulse Oximetry 98 98 [facility] Room Air Room Air 02/27/24 08:30 Temperature 97.9 F Pulse Rate Pulse Rate [Pulse Oximeter] 72 Pulse Rate [Right Pulse Oximeter] Respiratory Rate 16 Blood Pressure Blood Pressure [Le ft Arm] 142/103 H Blood Pressure [Ri ght Upper Arm] Pulse Oximetry 96 [facility] Room Air DS: Data Data Completed and Pending Completed studies during hospitalization: Ordering Physician: Blair Freeman M.D. Date of Service: 02/26/24 Procedure(s): CT head/brain wo con Accession Number(s): [id number] cc: Preethi Armenta PA-C; Blair Freeman M.D.~ For Patients: As a result of the Cures Act, medical imaging exams and procedure reports are released immediately into your electronic medical record. You may view this report before your referring provider. If you have questions, please contact your health care provider. INDICATION: FALL 02/25/24, NAUSEA TECHNIQUE: CT of the head was performed without IV contrast. COMPARISON: 02/07/2024. FINDINGS: The most cranial portion of the head was excluded from the field of view. Parenchyma: No acute hemorrhage, infarction, or mass. Mild scattered periventricular white matter hypoattenuation is nonspecific and is favored to represent chronic small vessel ischemic disease. Ventricles and extra-axial spaces: Mild involutional changes. Visualized paranasal sinuses: Clear. Mastoid air cells: Clear. Bones: No focal abnormality. Additional comment: Mild soft tissue swelling along the frontal scalp. IMPRESSION: No acute intracranial abnormality. Please note that all CT scans at this facility use dose modulation, iterative reconstruction, and/or weight-based dosing when appropriate to reduce radiation dose to as low as reasonably achievable. Dictated by Danny Miller MD @ 02/26/2024 1:21:37 PM (Electronically Signed) Ordering Physician: Blair Freeman M.D. Date of Service: 02/26/24 Procedure(s): CT cervical spine wo con Accession Number(s): [id number] cc: Preethi Armenta PA-C; Blair Freeman M.D.~ For Patients: As a result of the Cures Act, medical imaging exams and procedure reports are released immediately into your electronic medical record. You may view this report before your referring provider. If you have questions, please contact your health care provider. INDICATION: Fall. Neck pain, not otherwise described. COMPARISON: None available. TECHNIQUE: CT of the cervical spine without intravenous contrast. Please note that all CT scans at this facility use dose modulation, iterative reconstruction, and/or weight-based dosing when appropriate to reduce radiation dose to as low as reasonably achievable. FINDINGS: Alignment: Grade 1 anterolisthesis of C2 on C3. Otherwise no significant spondylolisthesis, widening of the intervertebral disc spaces, interfacetal joints or interspinous distances. Vertebrae: Vertebral bodies, pedicles, laminae, articular, transverse and spinous processes are intact. Moderate to severe C3-C4 C6-C7 and moderate C4-C5, C5-C6 and C7-T1 disc degeneration. 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 Soft Tissues: No perivertebral edema or hemorrhage. Extraspinal Anatomy: No significant findings. IMPRESSION: No acute traumatic injury is identified. Incidental findings described in the body of the report. Please note that all CT scans at this facility use dose modulation, iterative reconstruction, and/or weight-based dosing when appropriate to reduce radiation dose to as low as reasonably achievable. Dictated by Kirk Manzo MD @ 02/26/2024 2:45:12 PM (Electronically Signed) Ordering Physician: Blair Freeman M.D. Date of Service: 02/26/24 Procedure(s): CT angio head Accession Number(s): [id number] cc: Preethi Armenta PA-C; Blair Freeman M.D.~ For Patients: As a result of the 21st Century Cures Act, medical imaging exams and procedure reports are released immediately into your electronic medical record. You may view this report before your referring provider. If you have questions, please contact your health care provider. INDICATION: Fall, neck pain, vertigo. TECHNIQUE: CTA neck with contrast bolus tracking, 3D angiographic rendering using maximum intensity projection (MIP) and images permanently archived. FINDINGS: There is carotid atherosclerosis. There is no significant carotid artery stenosis or dissection. There is no significant vertebral artery stenosis or dissection. The soft tissues of the neck are within normal limits. The cervical spine is in normal alignment. Degenerative changes are noted in the cervical spine. IMPRESSION: Carotid atherosclerosis without significant stenosis. Please note that all CT scans at this facility use dose modulation, iterative reconstruction, and/or weight-based dosing when appropriate to reduce radiation dose to as low as reasonably achievable. Dictated by Panfilo Pollock MD @ 02/26/2024 7:56:01 PM (Electronically Signed) Labs on day of discharge: Labs from last 24 hours 02/27/24 02/27/24 02/26/24 08:35 06:00 15:04 WBC RBC Hgb Hct MCV MCH MCHC RDW Coeff of Justin Plt Count Neut % (Auto) Lymph % (Auto) [place] % (Auto) Eos % (Auto) Baso % (Auto) Neut # (Auto) Lymph # (Auto) [place] # (Auto) Eos # (Auto) Baso # (Auto) Abs Immat Gran (auto) Imm/Tot Granulo (auto) Sodium 135 Potassium 3.4 L Chloride 101 Carbon Dioxide 24 Anion Gap 10 BUN 10 Creatinine 0.9 Estimated Creat Clear 74.74 Estimated GFR 97 Glucose 133 H Lactate 1.7 Calcium 8.8 Magnesium 1.8 Total Bilirubin AST ALT Alkaline Phosphatase Troponin I Total Protein Albumin Lipase Urine Color Yellow Urine Appearance Clear Urine pH 8.5 Ur Specific [place] 1.015 Urine Protein Negative Urine Glucose (UA) Negative Urine Ketones Negative Urine Blood Trace-intact A Urine Nitrite Negative Urine Bilirubin Negative Urine Urobilinogen 0.2 Ur Leukocyte Esterase Negative Urine RBC 0-2 Urine WBC 0-2 Ur Squamous Epith Cells None Urine Bacteria None Ethyl Alcohol SARS-CoV-2 (PCR) Influenza Type A (PCR) Influenza Type B (PCR) 02/26/24 13:50 WBC 5.71 RBC 3.23 L Hgb 11.4 L Hct 32.9 L MCV 102 H MCH 35 H MCHC 35 RDW Coeff of Justin 13.4 Plt Count 210 Neut % (Auto) 62.1 Lymph % (Auto) 29.1 [place] % (Auto) 7.9 Eos % (Auto) 0.2 Baso % (Auto) 0.5 Neut # (Auto) 3.55 Lymph # (Auto) 1.66 [place] # (Auto) 0.50 Eos # (Auto) 0.01 Baso # (Auto) 0.03 Abs Immat Gran (auto) 0.01 Imm/Tot Granulo (auto) 0.2 Sodium 137 Potassium 3.5 L Chloride 99 Carbon Dioxide 26 Anion Gap 12 BUN 15 Creatinine 0.9 Estimated Creat Clear 76.59 Estimated GFR 97 Glucose 146 H Lactate 2.1 H Calcium 9.4 Magnesium 1.4 L Total Bilirubin 1.5 AST 88 H ALT 43 Alkaline Phosphatase 107 Troponin I < 0.01 L Total Protein 8.1 Albumin 4.9 Lipase 11 L Urine Color Urine Appearance Urine pH Ur Specific [place] Urine Protein Urine Glucose (UA) Urine Ketones Urine Blood Urine Nitrite Urine Bilirubin Urine Urobilinogen Ur Leukocyte Esterase Urine RBC Urine WBC Ur Squamous Epith Cells Urine Bacteria Ethyl Alcohol < 0.01 L SARS-CoV-2 (PCR) Negative SARS-CoV-2 Influenza Type A (PCR) Negative PCR FLU A Influenza Type B (PCR) Negative PCR FLU B Discharge Plan Discharge Disposition: Home, Self-Care Date of Admission: 02/26/24 18:07 Attending Provider on Discharge: Patricia Michael Primary Care Provider: Preethi Armenta Condition: Guarded Anticipated Discharge Date/Time: 02/27/24 10:37 Discharge Medications: New magnesium oxide 400 mg (241.3 mg magnesium) Tablet 400 mg PO DAILY Qty: 30 0RF potassium chloride 10 mEq capsule, extended release 10 meq PO DAILY Qty: 30 0RF lidocaine 5 % adhesive patch,medicated 1 patch topical DAILY Qty: 15 0RF Rx Instructions: leave on most painful area for up to 12 hrs ketorolac 10 mg tablet 10 mg PO Q6H PRN (Reason: pain) Qty: 5 0RF Rx Instructions: maximum total duration of 5 days from all oral, intranasal, or parenteral formulations Continued losartan 100 mg tablet 100 mg PO DAILY metformin 500 mg tablet extended release 24 hr 500 mg PO BIDWM acetaminophen 325 mg tablet 650 mg PO Q4H PRN amlodipine 5 mg tablet 5 mg PO DAILY azelastine 137 mcg (0.1 %) spray,non-aerosol 1 spray intranasal BID Rx Instructions: administer into each nostril gabapentin 300 mg capsule 300 mg PO DAILY gabapentin 300 mg capsule 600 mg PO HS omeprazole 40 mg capsule,delayed release(DR/EC) 40 mg PO DAILY pravastatin 10 mg tablet 10 mg PO HS folic acid 1 mg Tablet 1 mg PO DAILY Qty: 30 0RF thiamine mononitrate (vit B1) [Vitamin B-1 (mononitrate)] 100 mg Tablet 100 mg PO Q24H Qty: 30 0RF Discharge Orders: Discharge Order (Routine); Ordered 02/27/24 Ordered By: Patricia Michael Additional Instructions: Avoid alcohol and diphenhydramine Activity Level: No Restrictions and Use Walker Discharge Diet: Regular Follow Up Appointments: Preethi Armenta PA-C [Primary Care Provider] - (1 week, potassium) Forms: All Access [employer] Info Instructions
--- NOTE | 2024-02-27 10:23 | PC.SOCIAL ---
Discharge planning: maintenance worker met with pt today in his room and provided him with recovery support/chemical dependency support information. Pt stated that his doctor at [facility] put in a referral for individual therapy for him, which he feels he will take part in. Pt said he is not interested in chemical dependency treatment anymore since he has done it so many times before and it hasn't helped him. maintenance worker provided the pt with information on the Recovery Support network through [facility] in [place]. Pt stated that he is looking to move out of his mother's home, but has limited income to pay for rent. maintenance worker suggested that he also check in with [facility] [place] for housing resources. maintenance worker also spoke to pt's brother, Des, via phone and gave him the same information. Pt's brother plans to go with the pt to [facility] for resources in housing and recovery support. Social work to follow-up as needed.
[2024-02-27] MEDS: POTASSIUM BICARB 25 MEQ EFFERVESCENT TAB 50 MEQ PO (10:24)
--- NOTE | 2024-02-27 11:21 | PC.NURSE ---
Discharge instructions reviewed with patient. PIV taken out and catheter intact. VSS. Patient showered this AM. Has neck pain and has been given tylenol/ibuprofen for this. Will discharge with prescription for lidocaine patch and toradol. Requested to have lidocaine patch placed here but stated this will be an outpatient prescription. Patient ambulating without difficulties around unit. Alert and oriented. Lung sounds clear. Bowel sounds active. Voiding without difficulty. Will discharge home with mother once she arrives. All questions answered.
== END 2024-02-27 11:43 | disposition home or self-care (01) ==
LOC: ED 18:06 → MEDSURG 18:08
PROVIDERS: Family Medicine; Admitting Provider Family Medicine; Emergency Provider Emergency Medicine; PCP Student in an Organized Health Care Education/Training Program; Visit Provider Family Medicine
DX: T50.901A Poisoning by unspecified drugs, medicaments and biological substances, accidental (unintentional), initial encounter (principal); T51.91XA Toxic effect of unspecified alcohol, accidental (unintentional), initial encounter; R27.0 Ataxia, unspecified; F10.139 Alcohol abuse with withdrawal, unspecified; R25.1 Tremor, unspecified; S09.90XA Unspecified injury of head, initial encounter; E86.0 Dehydration; D64.9 Anemia, unspecified; M54.2 Cervicalgia; R00.0 Tachycardia, unspecified; E87.6 Hypokalemia; K70.2 Alcoholic fibrosis and sclerosis of liver; E83.42 Hypomagnesemia; Z91.199 Patient's noncompliance with other medical treatment and regimen due to unspecified reason; W19.XXXA Unspecified fall, initial encounter; S00.01XA Abrasion of scalp, initial encounter; S50.312A Abrasion of left elbow, initial encounter; S60.419A Abrasion of unspecified finger, initial encounter; S80.212A Abrasion, left knee, initial encounter; S80.211A Abrasion, right knee, initial encounter; I70.90 Unspecified atherosclerosis; E11.9 Type 2 diabetes mellitus without complications; I10 Essential (primary) hypertension; E87.20 Acidosis, unspecified; E46 Unspecified protein-calorie malnutrition; J31.0 Chronic rhinitis; R09.81 Nasal congestion; R11.0 Nausea; R11.10 Vomiting, unspecified; R51.9 Headache, unspecified; F32.A Depression, unspecified; Z79.84 Long term (current) use of oral hypoglycemic drugs; Z87.19 Personal history of other diseases of the digestive system; Z86.79 Personal history of other diseases of the circulatory system; Z90.09 Acquired absence of other part of head and neck; Z98.890 Other specified postprocedural states; Z11.52 Encounter for screening for COVID-19
CPT/HCPCS: 36415; 70450; 70496; 70498; 72125; 80048; 80053; 81001; 82077; 83605; 83690; 83735; 84484; 85025; 87631; 93005; 96365; 96375; 99284; 99285; A9270; G0378; J1885; J2405; J2560; J3411; J7030; Q9967